=== PATIENT | male | born 1955 | race Caucasian/White ===

== ENCOUNTER 2021-07-08 07:48 | Observation (INO) ==
--- NOTE | 2021-07-02 12:57 | Anesthesiology Consultation ---
Date of Service July 02, 2021 History Surgery Operation Date: 07/08/21 09:45 Proposed Procedures p Colonoscopy Dr. Eagle Guillermo MD Height/Weight Height: 6 ft 6 in Weight: 163.293 kg Allergies Allergy/AdvReac Type Severity Reaction Status Date / Time mometasone furoate Allergy Unknown NOSE Verified 07/01/21 15:44 IRRITATION,"SCABBED UP" oxycodone AdvReac Severe violently Verified 07/01/21 15:44 "sick" Medications Home Medications Medication Instructions Recorded Confirmed Last Taken ascorbic acid (vitamin C) 500 mg 500 mg PO QPM 10/22/19 07/01/21 09/15/20 20:00 tablet aspirin 81 mg tablet,delayed 81 mg PO Q2D 10/22/19 07/01/21 09/15/20 05:00 release atorvastatin 20 mg tablet 10 mg PO 3XWK 10/22/19 07/01/21 09/14/20 05:00 carisoprodol 350 mg tablet (Soma) 350 mg PO QID PRN 10/22/19 07/01/21 2 Weeks Ago ~09/02/20 diazepam 2 mg tablet 2 mg PO DAILY PRN 10/22/19 07/01/21 2 Weeks Ago ~09/02/20 fexofenadine 180 mg tablet 180 mg PO DAILY PRN 10/22/19 07/01/21 2 Weeks Ago ~09/02/20 fluticasone propionate 50 1 spray INTRANASAL DAILY PRN 10/22/19 07/01/21 Unknown mcg/actuation nasal spray,suspension (Flonase Allergy Relief) hydrochlorothiazide 25 mg tablet 25 mg PO QAM 10/22/19 07/01/21 09/15/20 05:00 omeprazole magnesium 20 mg 20 mg PO QPM 10/22/19 07/01/21 09/15/20 20:00 tablet,delayed release (Prilosec OTC) amlodipine 5 mg tablet 5 mg PO QAM 10/24/19 07/01/21 09/16/20 04:30 furosemide 20 mg tablet 20 mg PO 2XWK PRN 09/07/20 07/01/21 09/10/20 losartan 100 mg tablet 100 mg PO QAM 09/07/20 07/01/21 09/15/20 05:00 hydrocodone 5 mg-acetaminophen 325 1 - 2 tab PO Q6H PRN #24 tab MDD 8 09/16/20 07/01/21 Unknown mg tablet tabs tamsulosin 0.4 mg capsule (Flomax) 0.4 mg PO QAM 07/01/21 07/01/21 Unknown Past Medical History Medical History Chronic back pain Chronic neck pain Claustrophobia Coagulation factor disorder Had [facility] heme workup 11/08/19 for elevated PT/PTT prior to shoulder arthroscopy. Labs were repeated, as well as lupus anticoagulant. All were elevated, and [facility] recommended FFP prior to surgery. Patient received 2 units. Received recommendations from [facility] (Dr. Land) advising 2 units FFP prior to knee surgery on 09/16. Dr Brothers to order. Degenerative disc disease Diastolic dysfunction With prior episodes of acute diastolic heart failure/volume overload occurring in the setting of uncontrolled hypertension as well as high-dose gabapentin and amlodipine therapies. Appears well compensated at PAT 09/09/20 Dyspnea with exertion (started Jul 2020) -- following with [facility] cardiology. Negative DSE 08/2020. GERD (gastroesophageal reflux disease) History of cervical fracture ~1999 with hairline fracture at ~C3. no surgery at that time. Full ROM History of kidney stones [place] (hard of hearing) Hyperlipidemia Hypertension Leg edema monitoring with cardiology Osteoarthritis Past Family History Family History Other No family history of adverse response to anesthesia Past Surgical History Surgical History H/O arthroscopy of shoulder Right History of arthroscopy of right knee History of cardiac cath APPROX 10 YEARS AGO FOR CHEST PAIN WITH STRONG FHX OF CAD - [facility] - NO STENTS History of colonoscopy History of cystoscopy W/ STONE EXTRACTION History of lumbar discectomy History of tonsillectomy Nausea and vomiting after administration of anesthetic agent S/P epidural steroid injection Lumbar and cervical Social History Smoking Status: Former smoker tobacco type: cigarettes and smokeless tobacco Do You Dip or Chew Tobacco: No (quit in 1999) Smoking End Date: 30 + years ago Hx Alcohol Use: Yes Alcohol type: beer and hard liquor alcohol intake frequency: a few times a month Hx Substance Use: No substance use type: does not use
[~2021-07-08 07:48] MED LIST: SODIUM CHLORIDE 0.9% 250 ML IV PRN
--- NOTE | 2021-07-08 08:42 | History & Physical Report ---
Date of Service July 08, 2021 History of Present Illness Chief Complaint: Screening Primary Care Provider: Diamante Parisi, DO 66 yo male with a history of presumed lupus anticoagulant who requires ffp prior to procedure. Presenting today for a colonoscopy for screening. No reports of family history of colon cancer. Last colonoscopy in 2009. Otherwise without any other complaints. Allergies Allergy/AdvReac Type Severity Reaction Status Date / Time mometasone furoate Allergy Unknown NOSE Verified 07/08/21 08:00 IRRITATION,"SCABBED UP" oxycodone AdvReac Severe violently Verified 07/08/21 08:00 "sick" Home Medications Medication Instructions Recorded Confirmed Type ascorbic acid (vitamin C) 500 mg 500 mg PO QPM 10/22/19 07/08/21 History tablet aspirin 81 mg tablet,delayed 81 mg PO Q2D 10/22/19 07/08/21 History release atorvastatin 20 mg tablet 10 mg PO 3XWK 10/22/19 07/08/21 History carisoprodol 350 mg tablet (Soma) 350 mg PO QID PRN 10/22/19 07/08/21 History diazepam 2 mg tablet 2 mg PO DAILY PRN 10/22/19 07/01/21 History fexofenadine 180 mg tablet 180 mg PO DAILY PRN 10/22/19 07/08/21 History fluticasone propionate 50 1 spray INTRANASAL DAILY PRN 10/22/19 07/08/21 History mcg/actuation nasal spray,suspension (Flonase Allergy Relief) hydrochlorothiazide 25 mg tablet 25 mg PO QAM 10/22/19 07/08/21 History omeprazole magnesium 20 mg 20 mg PO QPM 10/22/19 07/08/21 History tablet,delayed release (Prilosec OTC) amlodipine 5 mg tablet 5 mg PO QAM 10/24/19 07/08/21 History furosemide 20 mg tablet 20 mg PO 2XWK PRN 09/07/20 07/08/21 History losartan 100 mg tablet 100 mg PO QAM 09/07/20 07/08/21 History hydrocodone 5 mg-acetaminophen 325 1 - 2 tab PO Q6H PRN #24 tab MDD 8 09/16/20 07/08/21 Rx mg tablet tabs tamsulosin 0.4 mg capsule (Flomax) 0.4 mg PO QAM 07/01/21 07/08/21 History prednisone 20 mg tablet 20 mg PO DAILY 07/08/21 07/08/21 History Past Med/Surg History Medical History Chronic back pain Chronic neck pain Claustrophobia Coagulation factor disorder Had [facility] heme workup 11/08/19 for elevated PT/PTT prior to shoulder arthroscopy. Labs were repeated, as well as lupus anticoagulant. All were elevated, and [facility] recommended FFP prior to surgery. Patient received 2 units. Received recommendations from [facility] (Dr. Land) advising 2 units FFP prior to knee surgery on 09/16. Dr Brothers to order. Degenerative disc disease Diastolic dysfunction With prior episodes of acute diastolic heart failure/volume overload occurring in the setting of uncontrolled hypertension as well as high-dose gabapentin and amlodipine therapies. Appears well compensated at PAT 09/09/20 Dyspnea with exertion (started Jul 2020) -- following with [facility] cardiology. N egative DSE 08/2020. GERD (gastroesophageal reflux disease) History of cervical fracture ~1999 with hairline fracture at ~C3. no surgery at that time. Full ROM History of kidney stones [place] (hard of hearing) Hyperlipidemia Hypertension Leg edema monitoring with cardiology Osteoarthritis Surgical History H/O arthroscopy of shoulder Right History of arthroscopy of right knee History of cardiac cath APPROX 10 YEARS AGO FOR CHEST PAIN WITH STRONG [facility]X [facility] History of colonoscopy History of cystoscopy W/ STONE EXTRACTION History of lumbar discectomy History of tonsillectomy Nausea and vomiting after administration of anesthetic agent S/P epidural steroid injection Lumbar and cervical Family History Other No family history of adverse response to anesthesia Social History Smoking Status: Former smoker Smoking End Date: 30 + years ago; Second Hand Exposure: Yes (as a child); Do You Dip or Chew Tobacco: No (quit in 1999); Tobacco Cessation Education Requested by Patient: No Hx Alcohol Use: Yes Alcohol type: beer and hard liquor Hx Substance Use: No Preferred Language: Libyan Communication Ability: Effective Pricing Director Required: No Beliefs That Will Affect Care: None Current Living Situation: Spouse Feels Safe at Home: Yes Safety Concerns: Feels Safe At This Time Assistive Devices: None Review of Systems All systems reviewed & are unremarkable except as noted in Subjective Physical Exam Physical Exam: Obese white male in nad Eyes: PERRL, conjunctivae normal, anicteric sclerae Gastrointestinal (Abdomen): Obese soft Results & Data ([facility]) Vital Signs (Past 12 Hours) Vital Signs Temp Pulse Resp BP Pulse Ox 07/08/21 08:07 36.5 C 87 16 162/93 H 94 Supervising Physician Co-Signing Physician Notes Colonoscopy for screening after 2 units of ffp given history of anticoagulant disorder.
[2021-07-08] MEDS ORDERED: SODIUM CHLORIDE 0.9% 250 ML IV PRN (08:45)
[2021-07-08 11:27] LABS: INR 1.3 (0.9-1.1); Partial Thromboplastin Ratio 1.3; Partial Thromboplastin Time 33.9 Seconds (21.0-31.0); Prothrombin Time 13.1 Seconds (9.0-12.0)
--- NOTE | 2021-07-08 11:50 | GI REPORT ---
Patient Name: Brennon Rankin Procedure Date: 07/08/2021 11:16 AM Date of : 1955 Admit Type: Outpatient Age: 66 Gender: Male Attending MD: Aspen Guillermo M.d. Procedure: Colonoscopy Providers: Aspen Guillermo M.d. Referring MD: Diamante Parisi Indications: Screening for colorectal malignant neoplasm Medicines: 2 units of ffp pre-operatively Complications: No immediate complications. Estimated Blood Loss: Estimated blood loss: none. Procedure: Pre-Anesthesia Assessment: - Patient identification and proposed procedure were verified prior to the procedure by the physician, the nurse and the anesthesiologist. The procedure was verified in the pre-procedure area. - Prior to the procedure, a History and Physical was performed, and patient medications, allergies and sensitivities were reviewed. The patient's tolerance of previous anesthesia was reviewed. - ASA Grade Assessment: III - A patient with severe systemic disease. After I obtained informed consent, the scope was passed under direct vision. Throughout the procedure, the patient's blood pressure, pulse, and oxygen saturations were monitored continuously. The Colonoscope was introduced through the anus and advanced to the cecum, identified by appendiceal orifice and ileocecal valve. The colonoscopy was performed without difficulty. The patient tolerated the procedure - he coughed during a good portion of the procedure. Findings: The examined colon appeared normal. Internal hemorrhoids were found during retroflexion. Impression: - The examined colon appeared normal. - Internal hemorrhoids. Recommendation: - Repeat colonoscopy in 5 years for screening purposes - consider a 2 day prep prior to next colonoscopy. Ian Felix M.d. 07/08/2021 11:49:41 AM This report has been signed electronically. Note Initiated On: 07/08/2021 11:16 AM Number of Addenda: 0 I attest to the content of the Intraoperative Record and orders documented therein, exceptions below {[id number]}
[2021-07-08] MEDS ORDERED: LIDOCAINE 2% 2 ML VIAL/AMP(20MG/ML) INFIL ONE (11:59)
[2021-07-08] MEDS ORDERED: PROPOFOL IV EMULSION 10 MG/ML 20 ML VIAL IV ONE (11:59)
--- NOTE | 2021-07-08 13:09 | Hospitalist Consultation ---
Date of Consultation July 08, 2021 History of Present Illness Reason for Consultation: Syncopal episode Requesting Physician: Dr. Nakia Neff Attending Physician: Aspen Guillermo MD History of Present Illness This is a 66 yo M with PMHx of Hypertension, hyperlipidemia, chronic diastolic dysfunction, suspect lupus/coagulation factor disorder, degenerative disc disease, C3 hairline fracture, and recently on prednisone burst for bronchitis x5 days. He presented today for routine colonoscopy by Dr. Guillermo. He received propofol and lidocaine for anesthesia and tolerated the procedure well. After procedure patient developed tunnel vision, weakness, and felt as if he was going to pass out. This occurred 3 times post procedurally, with a eye deviation to the left per anesthesia. He does report chronic neck pain and issues with moving neck in flexion and to the right due to history of C3 fracture. Reports his neck was incredibly stiff after procedure due to position of pillow. He denies any history of seizure. He admits to having PVCs however reports this is chronic and well-known. During all 3 of these events vital signs remained stable. Blood glucose was 89 on recheck and he has since been able to drink without any difficulty. Patient has been gotten up to ambulate to and from the bathroom without any difficulty in post endoscopy suite. He reports complete resolvent of his symptoms at this point in time, his is sitting at bedside. Allergies Allergy/AdvReac Type Severity Reaction Status Date / Time mometasone furoate Allergy Unknown NOSE Verified 07/08/21 08:00 IRRITATION,"SCABBED UP" oxycodone AdvReac Severe violently Verified 07/08/21 08:00 "sick" Home Medications Medication Instructions Recorded Confirmed Type ascorbic acid (vitamin C) 500 mg 500 mg PO QPM 10/22/19 07/08/21 History tablet aspirin 81 mg tablet,delayed 81 mg PO Q2D 10/22/19 07/08/21 History release atorvastatin 20 mg tablet 10 mg PO 3XWK 10/22/19 07/08/21 History carisoprodol 350 mg tablet (Soma) 350 mg PO QID PRN 10/22/19 07/08/21 History diazepam 2 mg tablet 2 mg PO DAILY PRN 10/22/19 07/01/21 History fexofenadine 180 mg tablet 180 mg PO DAILY PRN 10/22/19 07/08/21 History fluticasone propionate 50 1 spray INTRANASAL DAILY PRN 10/22/19 07/08/21 History mcg/actuation nasal spray,suspension (Flonase Allergy Relief) hydrochlorothiazide 25 mg tablet 25 mg PO QAM 10/22/19 07/08/21 History omeprazole magnesium 20 mg 20 mg PO QPM 10/22/19 07/08/21 History tablet,delayed release (Prilosec OTC) amlodipine 5 mg tablet 5 mg PO QAM 10/24/19 07/08/21 History furosemide 20 mg tablet 20 mg PO 2XWK PRN 09/07/20 07/08/21 History losartan 100 mg tablet 100 mg PO QAM 09/07/20 07/08/21 History hydrocodone 5 mg-acetaminophen 325 1 - 2 tab PO Q6H PRN #24 tab MDD 8 09/16/20 07/08/21 Rx mg tablet tabs tamsulosin 0.4 mg capsule (Flomax) 0.4 mg PO QAM 07/01/21 07/08/21 History prednisone 20 mg tablet 20 mg PO DAILY 07/08/21 07/08/21 History Patient History Medical History (Updated 07/08/21 @ 13:59 by Yelena Borrero PA-C) Chronic back pain Chronic neck pain Claustrophobia Coagulation factor disorder Had [facility] heme workup 11/08/19 for elevated PT/PTT prior to shoulder arthroscopy. Labs were repeated, as well as lupus anticoagulant. All were elevated, and [facility] recommended FFP prior to surgery. Patient received 2 units. Received recommendations from [facility] (Dr. Land) advising 2 units FFP prior to knee surgery on 09/16. Dr Brothers to order. Degenerative disc disease Diastolic dysfunction With prior episodes of acute diastolic heart failure/volume overload occurring in the setting of uncontrolled hypertension as well as high-dose gabapentin and amlodipine therapies. Appears well compensated at PAT 09/09/20 Dyspnea with exertion (started Jul 2020) -- following with [facility] cardiology. Negative DSE 08/2020. GERD (gastroesophageal reflux disease) History of cervical fracture ~1999 with hairline fracture at ~C3. no surgery at that time. Full ROM History of kidney stones [place] (hard of hearing) Hyperlipidemia Hypertension Leg edema monitoring with cardiology Osteoarthritis Surgical History H/O arthroscopy of shoulder Right History of arthroscopy of right knee History of cardiac cath APPROX 10 YEARS AGO FOR CHEST PAIN WITH STRONG FHX OF CAD - [facility] - NO STENTS History of colonoscopy History of cystoscopy W/ STONE EXTRACTION History of lumbar discectomy History of tonsillectomy Nausea and vomiting after administration of anesthetic agent S/P epidural steroid injection Lumbar and cervical Family History Other No family history of adverse response to anesthesia Social History Smoking Status: Former smoker Smoking End Date: 30 + years ago; Second Hand Exposure: Yes (as a child); Do You Dip or Chew Tobacco: No (quit in 1999); Tobacco Cessation Education Requested by Patient: No Hx Alcohol Use: Yes Alcohol type: beer and hard liquor Hx Substance Use: No Preferred Language: Kittitian Communication Ability: Effective Bakery Sales Clerk Required: No Beliefs That Will Affect Care: None Current Living Situation: Spouse Feels Safe at Home: Yes Safety Concerns: Feels Safe At This Time Assistive Devices: None Results & Data Results & Data ([facility]) Vital Signs (Past 12 Hours) Vital Signs Temp Pulse Pulse Resp BP BP Pulse Ox 07/08/21 12:37 67 16 140/70 98 07/08/21 12:22 68 16 157/79 H 97 07/08/21 12:07 36.6 C 79 16 140/76 97 07/08/21 11:52 80 16 130/77 97 07/08/21 10:53 36.7 C 65 16 162/65 H 95 07/08/21 10:23 36.6 C 79 16 147/82 H 95 07/08/21 10:22 36.7 C 82 16 131/63 95 07/08/21 10:08 36.7 C 75 16 147/66 H 95 07/08/21 10:02 36.5 C 72 16 143/71 H 95 07/08/21 09:58 36.6 C 73 16 123/71 96 07/08/21 09:53 36.7 C 75 16 143/86 H 95 07/08/21 09:35 36.6 C 78 16 148/101 H 95 07/08/21 09:18 36.6 C 78 16 148/101 H 07/08/21 09:15 36.6 C 70 16 129/61 94 07/08/21 09:05 36.5 C 71 16 134/72 94 07/08/21 09:00 36.5 C 73 16 147/70 H 94 07/08/21 08:55 36.6 C 71 16 152/94 H 94 07/08/21 08:48 36.6 C 68 140/110 H 93 07/08/21 08:07 36.5 C 87 16 162/93 H 94
--- NOTE | 2021-07-08 13:31 | History & Physical Report ---
Date of Service July 08, 2021 Assessment & Plan (1) Syncope: Plan: -Admit to med surg with telemetry for observation -Check head CT, neck CT to evaluate for syncopal episode x3 - -Follow on cardiac monitoring, follows with cardiology as an outpatient, Aiden Nicolas PA-C -EKG now -Check 2D echo stat, last was completed in August 2020 and had normal LVEF, no valvular abnormalities, no wall motion abnormalities -Check CBC, CMP, troponin, mag, Krebs now -Add on lipid and A1c panel -Allow diet cardiac (2) Hypertension: Plan: -Continue oral antihypertensives, blood pressure remained stable 3 syncopal episodes -We will check orthostatics x1 (3) Coagulation factor disorder: Plan: --Follows with Dr. Cho with hematology as outpatient, received 2 units FFP prior to colonoscopy today (4) Abnormal coagulation profile: Plan: -INR evaluated at 1.3 today, follow with a.m. labs -As above (5) GERD (gastroesophageal reflux disease): Plan: -Continue medications - teds, scds CODE: Full code Dispo: From home, with for observation, likely to remain in hospital overnight be able to be discharged home pending normal imaging, lab work, EKG and echocardiogram. History of Present Illness Chief Complaint: Syncope Primary Care Provider: Diamante Parisi, This is a 66 yo M with PMHx of Hypertension, hyperlipidemia, chronic diastolic dysfunction, suspect lupus/coagulation factor disorder, degenerative disc disease, C3 hairline fracture, and recently on prednisone burst for bronchitis x5 days. He presented today for routine colonoscopy by Dr. Guillermo. He received propofol and lidocaine for anesthesia and tolerated the procedure well. After procedure patient developed tunnel vision, weakness, and felt as if he was going to pass out. This occurred 3 times post procedurally, with a eye deviation to the left per anesthesia on each occasion. He does report chronic neck pain and issues with moving neck in flexion and to the right due to history of C3 fracture. Reports his neck was incredibly stiff after procedure due to position of pillow. He denies any history of seizure. Also denies previous adverse effects with anesthesia. He admits to having PVCs however reports this is chronic and well-known. During all 3 of these events vital signs remained stable. Blood glucose was 89 on recheck and he has since been able to drink without any difficulty. Patient has been gotten up to ambulate to and from the bathroom without any difficulty in post endoscopy suite. He reports complete resolvent of his symptoms at this point in time, his is sitting at bedside. He is agreeable to hospital stay overnight for observation after discussion of risks/benefits. agrees. Allergies Allergy/AdvReac Type Severity Reaction Status Date / Time mometasone furoate Allergy Unknown NOSE Verified 07/08/21 08:00 IRRITATION,"SCABBED UP" oxycodone AdvReac Severe violently Verified 07/08/21 08:00 "sick" Home Medications Medication Instructions Recorded Confirmed Type ascorbic acid (vitamin C) 500 mg 500 mg PO QPM 10/22/19 07/08/21 History tablet aspirin 81 mg tablet,delayed 81 mg PO Q2D 10/22/19 07/08/21 History release atorvastatin 20 mg tablet 10 mg PO 3XWK 10/22/19 07/08/21 History carisoprodol 350 mg tablet (Soma) 350 mg PO QID PRN 10/22/19 07/08/21 History diazepam 2 mg tablet 2 mg PO DAILY PRN 10/22/19 07/01/21 History fexofenadine 180 mg tablet 180 mg PO DAILY PRN 10/22/19 07/08/21 History fluticasone propionate 50 1 spray INTRANASAL DAILY PRN 10/22/19 07/08/21 History mcg/actuation nasal spray,suspension (Flonase Allergy Relief) hydrochlorothiazide 25 mg tablet 25 mg PO QAM 10/22/19 07/08/21 History omeprazole magnesium 20 mg 20 mg PO QPM 10/22/19 07/08/21 History tablet,delayed release (Prilosec OTC) amlodipine 5 mg tablet 5 mg PO QAM 10/24/19 07/08/21 History furosemide 20 mg tablet 20 mg PO 2XWK PRN 09/07/20 07/08/21 History losartan 100 mg tablet 100 mg PO QAM 09/07/20 07/08/21 History hydrocodone 5 mg-acetaminophen 325 1 - 2 tab PO Q6H PRN #24 tab MDD 8 09/16/20 07/08/21 Rx mg tablet tabs tamsulosin 0.4 mg capsule (Flomax) 0.4 mg PO QAM 07/01/21 07/08/21 History prednisone 20 mg tablet 20 mg PO DAILY 07/08/21 07/08/21 History Past Med/Surg History Medical History (Updated 07/08/21 @ 13:59 by Yelena Borrero PA-C) Chronic back pain Chronic neck pain Claustrophobia Coagulation factor disorder Had [facility] heme workup 11/08/19 for elevated PT/PTT prior to shoulder arthroscopy. Labs were repeated, as well as lupus anticoagulant. All were elevated, and [facility] recommended FFP prior to surgery. Patient received 2 units. Received recommendations from [facility] (Dr. Land) advising 2 units FFP prior to knee surgery on 09/16. Dr Brothers to order. Degenerative disc disease Diastolic dysfunction With prior episodes of acute diastolic heart failure/volume overload occurring in the setting of uncontrolled hypertension as well as high-dose gabapentin and amlodipine therapies. Appears well compensated at PAT 09/09/20 Dyspnea with exertion (started Jul 2020) -- following with [facility] cardiology. Negative DSE 08/2020. GERD (gastroesophageal reflux disease) History of cervical fracture ~2000 with hairline fracture at ~C3. no surgery at that time. Full ROM History of kidney stones [place] (hard of hearing) Hyperlipidemia Hypertension Leg edema monitoring with cardiology Osteoarthritis Surgical History H/O arthroscopy of shoulder Right History of arthroscopy of right knee History of cardiac cath APPROX 10 YEARS AGO FOR CHEST PAIN WITH STRONG FHX OF CAD - [facility] - NO STENTS History of colonoscopy History of cystoscopy W/ STONE EXTRACTION History of lumbar discectomy History of tonsillectomy Nausea and vomiting after administration of anesthetic agent S/P epidural steroid injection Lumbar and cervical Family History Other No family history of adverse response to anesthesia Social History Smoking Status: Never smoker Second Hand Exposure: No; Hx Alcohol Use: Yes Alcohol type: beer Hx Substance Use: No Preferred Language: Andorran Communication Ability: Effective Aviation Medicine Specialist Required: No Beliefs That Will Affect Care: None Current Living Situation: Spouse Feels Safe at Home: Yes Assistive Devices: None Review of Systems Review of Systems: Constitutional: No fever, sweats or chills Eyes: No diplopia, no worsening or blurred vision ENT: normal hearing, no trouble swallowing Respiratory: No cough, sputum, dyspnea at rest or on exertion Cardiovascular: No chest pain, tightness or palpitations Abdomen: No pain, nausea, vomiting, diarrhea or constipation Musculoskeletal: No joint pain, calf pain, swelling Neurologic: No weakness, numbness/tingling, or balance problems Psychiatric: No anxiety or depression Skin: No rash or itch Physical Exam Physical Exam: General: awake, alert, no apparent distress, obese with BMI of 42.1 Head: Normocephalic, atraumatic ENT: PERRL, EOMI, no pharyngeal exudate, mucous membranes moist Chest: Clear to auscultation, on room air, no adventitious breath sounds Cardiac: Regular rate and rhythm, no murmur, no JVD, normal peripheral pulses, good capillary refill Abdominal: NABS x 4 quadrants, soft, nondistended, nontender to palpation, no rebound or guarding Extremities: Normal inspection, no peripheral edema or erythema, calfs nontender to palpation Psych: Normal mood and affect Neuro: AAO x 3, strength intact bilaterally and rated 5/5, no motor deficits, speech is clear, no peripheral sensory deficits Results & Data Results & Data ([facility]) Vital Signs (Past 12 Hours) Vital Signs Temp Pulse Pulse Resp BP BP Pulse Ox 07/08/21 12:37 67 16 140/70 98 07/08/21 12:22 68 16 157/79 H 97 07/08/21 12:07 36.6 C 79 16 140/76 97 07/08/21 11:52 80 16 130/77 97 07/08/21 10:53 36.7 C 65 16 162/65 H 95 07/08/21 10:23 36.6 C 79 16 147/82 H 95 07/08/21 10:22 36.7 C 82 16 131/63 95 07/08/21 10:08 36.7 C 75 16 147/66 H 95 07/08/21 10:02 36.5 C 72 16 143/71 H 95 07/08/21 09:58 36.6 C 73 16 123/71 96 07/08/21 09:53 36.7 C 75 16 143/86 H 95 07/08/21 09:35 36.6 C 78 16 148/101 H 95 07/08/21 09:18 36.6 C 78 16 148/101 H 07/08/21 09:15 36.6 C 70 16 129/61 94 07/08/21 09:05 36.5 C 71 16 134/72 94 07/08/21 09:00 36.5 C 73 16 147/70 H 94 07/08/21 08:55 36.6 C 71 16 152/94 H 94 07/08/21 08:48 36.6 C 68 140/110 H 93 07/08/21 08:07 36.5 C 87 16 162/93 H 94 Code Status & VTE Plan Code Status Full code Supervising Physician Co-Signing Physician Notes Pt was seen and examined. Agreed with Yelena COX exam, assessment and plan. 66 yo M with PMHx of Hypertension, hyperlipidemia, chronic diastolic dysfunction, suspect lupus/coagulation factor disorder, degenerative disc disease, C3 hairline fracture, and recently on prednisone for bronchitis x5 days, s/p routine colonoscopy by Dr. Guillermo was asked to admitted due to syncopal episodes possible due to propofol and lidocaine for anesthesia during the procedure. Staff noted that patient had 3 syncopal episodes. He does report chronic neck pain and issues with moving neck in flexion and to the right due to history of C3 fracture. Currently sitting in chair with no distress. Will get an CT head and cervical. will get an echo. Continue neuro check. Will monitor closely. MD Harmony
--- NOTE | 2021-07-08 13:33 | Anesthesiology Progress Note ---
Date of Service July 08, 2021 Anesthesia Post Procedure Vital Signs Vital Signs: Temp Pulse Pulse Resp BP BP Pulse Ox 07/08/21 12:37 67 16 140/70 98 07/08/21 12:22 68 16 157/79 H 97 07/08/21 12:07 36.6 C 79 16 140/76 97 07/08/21 11:52 80 16 130/77 97 07/08/21 10:53 36.7 C 65 16 162/65 H 95 07/08/21 10:23 36.6 C 79 16 147/82 H 95 07/08/21 10:22 36.7 C 82 16 131/63 95 07/08/21 10:08 36.7 C 75 16 147/66 H 95 07/08/21 10:02 36.5 C 72 16 143/71 H 95 07/08/21 09:58 36.6 C 73 16 123/71 96 07/08/21 09:53 36.7 C 75 16 143/86 H 95 07/08/21 09:35 36.6 C 78 16 148/101 H 95 07/08/21 09:18 36.6 C 78 16 148/101 H 07/08/21 09:15 36.6 C 70 16 129/61 94 07/08/21 09:05 36.5 C 71 16 134/72 94 07/08/21 09:00 36.5 C 73 16 147/70 H 94 07/08/21 08:55 36.6 C 71 16 152/94 H 94 07/08/21 08:48 36.6 C 68 140/110 H 93 07/08/21 08:07 36.5 C 87 16 162/93 H 94 Transfer of Care Handoff Completed per policy Notes Mental Status: alert / awake / arousable and participated in evaluation Patient Amnestic to Procedure: Yes Nausea / Vomiting: adequately controlled Pain: adequately controlled Airway Patency, RR, SpO2: stable & adequate BP & HR: stable & adequate Hydration State: stable & adequate Anesthetic Complications: no major complications apparent and Pt Satisfied with anesthetic care
--- NOTE | 2021-07-08 13:41 | Anesthesiology Progress Note ---
Date of Service July 08, 2021 Anesthesia Post Procedure Vital Signs Vital Signs: Temp Pulse Pulse Resp BP BP Pulse Ox 07/08/21 12:37 67 16 140/70 98 07/08/21 12:22 68 16 157/79 H 97 07/08/21 12:07 36.6 C 79 16 140/76 97 07/08/21 11:52 80 16 130/77 97 07/08/21 10:53 36.7 C 65 16 162/65 H 95 07/08/21 10:23 36.6 C 79 16 147/82 H 95 07/08/21 10:22 36.7 C 82 16 131/63 95 07/08/21 10:08 36.7 C 75 16 147/66 H 95 07/08/21 10:02 36.5 C 72 16 143/71 H 95 07/08/21 09:58 36.6 C 73 16 123/71 96 07/08/21 09:53 36.7 C 75 16 143/86 H 95 07/08/21 09:35 36.6 C 78 16 148/101 H 95 07/08/21 09:18 36.6 C 78 16 148/101 H 07/08/21 09:15 36.6 C 70 16 129/61 94 07/08/21 09:05 36.5 C 71 16 134/72 94 07/08/21 09:00 36.5 C 73 16 147/70 H 94 07/08/21 08:55 36.6 C 71 16 152/94 H 94 07/08/21 08:48 36.6 C 68 140/110 H 93 07/08/21 08:07 36.5 C 87 16 162/93 H 94 Transfer of Care Handoff Completed per policy Notes Mental Status: alert / awake / arousable and participated in evaluation Patient Amnestic to Procedure: Yes Nausea / Vomiting: adequately controlled Pain: adequately controlled Airway Patency, RR, SpO2: stable & adequate BP & HR: stable & adequate Hydration State: stable & adequate Anesthetic Complications: see Notes below and Pt Satisfied with anesthetic care Notes: The patient is a 66 year old male with a history of hypertension, dyslipidemia, coagulation factor disorder, GERD and claustrophobia who underwent a colonoscopy with Dr. Guillermo today. The patient did receive two units of FFP today per his hematologists recommendation prior to the procedure. The patient did complain of a dry cough that he has had for several weeks now and for which he is taking prednisone. He stated he was told his cough was likely due to an allergic bronchitis. He denied any other symptoms. The patient did well during the procedure. He received 250mg IV propofol and 40mg IV lidocaine. Shortly after arriving in recovery, I was called to the bedside by the nurse because the patient was "passing out." When I arrived to recovery area, the patient was just started to regain consciousness. He was alert and appropriate and his vital signs were stable. He did not exhibit any hypotension or bradycardia. He stated he felt like his vision was blurry and like he was falling down a dark tunnel prior to passing out. The patient denied chest pain or shortness of breath. Neurologically, he was grossly intact. His blood sugar was 89. The patient had two more episodes in recovery in which he suddenly seemed to lose consciousness. Prior to losing consciousness the patient would state that he was starting to feel weird and foggy again and getting tunnel vision. The patient would then seem to stare off into the distance and go limp. His eyes would deviate to the left. Each episode only lasted several seconds and then the patient would regain consciousness. The patient was mentating appropriately between episodes and vitals remained stable. He did not lose bowel or bladder control during these episodes. The internal medicine service was consulted. [facility] to the bedside to evaluate the patient. She and Dr. Bay discussed the patient and recommended a [address] scan of the head and neck to look for any acute neurological changes. The patient and his were agreeable.
--- NOTE | 2021-07-08 14:01 | Communication Note ---
Date of Service: July 08, 2021 Informed by recovery nurse that patient had some changes in the recovery area- evaluated by hospitalist, anesthesia team. decision was to admit for 24 hour obs.
--- NOTE | 2021-07-08 16:03 | CT Scan Report ---
HEAD CT NONCONTRAST CT DOSE: 1035.81 mGycm HISTORY: left eye deviation, syncopal episode TECHNIQUE: Multiaxial CT images of the head were performed without the use of intravenous contrast. A utomated exposure control was utilized for this study. A dose lowering technique was utilized adheri ng to the principles of ALARA. Comparison: Head CT 02/16/2010. Findings: The paranasal sinuses and mastoid air cells are clear. The calvarium and skull base are int act. The ventricles and sulci are within normal limits. There is no mass, hematoma, midline shift, or acute infarct. Incidental note is made of a punctate metallic density within the left temporal subcu taneous soft tissues. Impression: No acute intracranial abnormality. ACT 112: Negative or not required by law. Electronically signed by: Ehsan Lowry M.D. 07/08/2021 4:02 PM
[2021-07-08] MEDS ORDERED: FLUTICASONE PROPIONATE NA SPR 16 GM BTL PRN (16:21)
[2021-07-08] MEDS ORDERED: FEXOFENADINE HCL 180 MG TAB PO PRN (16:21)
[2021-07-08] MEDS ORDERED: CARISOPRODOL 350 MG TABLET PO PRN (16:21)
[2021-07-08] MEDS ORDERED: ACETAMINOPHEN 325 MG TAB PO PRN (16:21)
[2021-07-08] MEDS ORDERED: FUROSEMIDE 20 MG TAB PO PRN (16:21)
[2021-07-08] MEDS ORDERED: HYDROCODONE/ACETAMOPHEN 5/325MG TAB PO PRN (16:21)
[2021-07-08] MEDS ORDERED: ONDANSETRON INJ 2 MG/ML 2 ML VIAL IV PRN (16:21)
[2021-07-08] MEDS ORDERED: diazePAM 2 MG TABLET PO PRN (16:21)
[2021-07-08 17:07] LABS: Hematocrit (blood only) 40.4 % (42-52); Hemoglobin 13.4 g/dL (14.0-18.0); Mean Corpuscular Hemoglobin 29.4 pg (25-34); Mean Corpuscular Volume 88.6 fL (80-100); Mean Platelet Volume 10.1 fL (7.4-10.4); Platelet Count 267 K/uL (130-400); RDW Coefficient of Variation 13.7 % (11.5-14.5); RDW Standard Deviation 44.5 fL (36.4-46.3); Red Blood Count 4.56 M/uL (4.7-6.1); White Blood Count 9.42 K/uL (4.8-10.8)
[2021-07-08 17:08] LABS: Mean Corpuscular Hgb Conc 33.2 g/dL (32-36)
[2021-07-08 17:26] LABS: Albumin Level 3.6 gm/dl (3.4-5.0); BUN Creatinine Ratio 19.6 (10-20); Calcium 8.8 mg/dl (8.5-10.1); Creatinine Clr Calc Pharmacy 98.2 ml/min; Est GFR (African American) 66.8 ml/min; Est GFR (Non-African American) 57.7 ml/min; Magnesium 2.5 mg/dl (1.8-2.4); Potassium 3.6 mmol/L (3.5-5.1)
[2021-07-08 17:29] LABS: Albumin Globulin Ratio 0.8 (0.9-2); Bilirubin,Total 0.5 mg/dl (0.2-1); Globulin 4.3 gm/dl (2.5-4.0); Phosphorus 4.3 mg/dl (2.5-4.9); Total Protein 7.9 gm/dl (6.4-8.2)
--- NOTE | 2021-07-08 17:54 | CT Scan Report ---
CERVICAL SPINE CT CT DOSE: 492.75 mGy.cm HISTORY: Neck pain. C3 fracture TECHNIQUE: Multiaxial CT images of the cervical spine were performed and reformatted in the sagittal and coronal plane without the use of contrast. A dose lowering technique was utilized adhering to th e principles of ALARA. COMPARISON: None. FINDINGS: No fractures. No subluxation. Prevertebral soft tissues and the C1-C2 interval are intact. No pneumothorax. The CT C3 vertebral bodies and facets are fused. There is mild to moderate degenerat yadira disc disease throughout the cervical spine. IMPRESSION: No fractures within the cervical spine. ACT 112: Negative or not required by law. Electronically signed by: Ehsan Lowry M.D. 07/08/2021 5:52 PM
[2021-07-08] MEDS ORDERED: COUGH DROP (SUGAR FREE) LOZ 24 LOZ/1 BOX BUCCAL STA (20:44)
[2021-07-08] MEDS ORDERED: PANTOprazole 40 MG TAB PO SCH (21:00)
[2021-07-08] MEDS ORDERED: ASCORBIC ACID 500 MG TAB PO SCH (21:00)
[2021-07-09 06:40] LABS: Hematocrit (blood only) 40.9 % (42-52); Hemoglobin 13.7 g/dL (14.0-18.0); Mean Corpuscular Hemoglobin 29.8 pg (25-34); Mean Corpuscular Hgb Conc 33.5 g/dL (32-36); Mean Corpuscular Volume 88.9 fL (80-100); Mean Platelet Volume 10.2 fL (7.4-10.4); Platelet Count 227 K/uL (130-400); RDW Coefficient of Variation 13.6 % (11.5-14.5); RDW Standard Deviation 44.2 fL (36.4-46.3); White Blood Count 7.93 K/uL (4.8-10.8)
[2021-07-09 07:10] LABS: Albumin Level 3.1 gm/dl (3.4-5.0); BUN Creatinine Ratio 21.6 (10-20); Calcium 8.7 mg/dl (8.5-10.1); Creatinine Clr Calc Pharmacy 107.3 ml/min; Est GFR (African American) 74.4 ml/min; Est GFR (Non-African American) 64.2 ml/min; Magnesium 2.3 mg/dl (1.8-2.4)
[2021-07-09 07:14] LABS: Albumin Globulin Ratio 0.8 (0.9-2); Bilirubin,Total 0.4 mg/dl (0.2-1); Globulin 4.1 gm/dl (2.5-4.0); Total Protein 7.2 gm/dl (6.4-8.2)
[2021-07-09 07:59] LABS: Estimated Average Glucose 117 mg/dl; Hemoglobin A1C 5.7 % (4.5-5.6)
[2021-07-09] MEDS ORDERED: ASPIRIN 81 MG ECTAB PO SCH (09:00)
[2021-07-09] MEDS ORDERED: amLODIPine BESYLATE 5 MG TAB PO SCH (09:00)
[2021-07-09] MEDS ORDERED: LOSARTAN POTASSIUM 50 MG TAB PO SCH (09:00)
[2021-07-09] MEDS ORDERED: predniSONE 20 MG TAB PO SCH ×2 (09:00)
[2021-07-09] MEDS ORDERED: ATORVASTATIN 10 MG TAB PO SCH (09:00)
[2021-07-09] MEDS ORDERED: hydroCHLOROthiazide 25 MG TAB PO SCH (09:00)
[2021-07-09] MEDS ORDERED: TAMSULOSIN HCL 0.4 MG CAP PO SCH (09:00)
[2021-07-09] MEDS ORDERED: hydrALAZINE HCL 20 MG/ML VIAL IV ONE (09:46)
--- NOTE | 2021-07-09 09:58 | Electrocardiogram Report ---
Test Reason : Blood Pressure : / mmHG Vent. Rate : 079 BPM Atrial Rate : 079 BPM P-R Int : 170 ms QRS Dur : 098 ms QT Int : 366 ms P-R-T Axes : 062 012 052 degrees QTc Int : 419 ms Sinus rhythm with frequent Premature ventricular complexes Otherwise normal ECG When compared with ECG of 31-JUL-2016 06:29, Premature ventricular complexes are now Present Confirmed by Mark Olivera ([id number]) on 07/09/2021 9:57:58 AM Referred By: Diamante Parisi Confirmed By:Mark Olivera
--- NOTE | 2021-07-09 11:53 | Discharge Summary ---
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 He presented today for routine colonoscopy by Dr. Guillermo. He received propofol and lidocaine for anesthesia and tolerated the procedure well. After procedure patient developed tunnel vision, weakness, and felt as if he was going to pass out. This occurred 3 times post procedurally, with a eye deviation to the left per anesthesia on each occasion. He does report chronic neck pain and issues with moving neck in flexion and to the right due to history of C3 fracture. Reports his neck was incredibly stiff after procedure due to position of pillow. He denies any history of seizure. Also denies previous adverse effects with anesthesia. He admits to having PVCs however reports this is chronic and well-known. During all 3 of these events vital signs remained stable. Blood glucose was 89 on recheck and he has since been able to drink without any difficulty. Patient has been gotten up to ambulate to and from the bathroom without any difficulty in post endoscopy suite. He reports complete resolvent of his symptoms at this point in time, his is sitting at bedside. He is agreeable to hospital stay overnight for observation after discussion of risks/benefits. agrees. Admission Exam Per Admitting Provider General: awake, alert, no apparent distress, obese with BMI of 42.1 Head: Normocephalic, atraumatic ENT: PERRL, EOMI, no pharyngeal exudate, mucous membranes moist Chest: Clear to auscultation, on room air, no adventitious breath sounds Cardiac: Regular rate and rhythm, no murmur, no JVD, normal peripheral pulses, good capillary refill Abdominal: NABS x 4 quadrants, soft, nondistended, nontender to palpation, no rebound or guarding Extremities: Normal inspection, no peripheral edema or erythema, calfs nontender to palpation Psych: Normal mood and affect Neuro: AAO x 3, strength intact bilaterally and rated 5/5, no motor deficits, speech is clear, no peripheral sensory deficits Principal Diagnosis Syncope: Hypertension: GERD (gastroesophageal reflux disease): Screening colonoscopy Discharge Exam General- No acute distress Head- atraumatic Eyes- PERRL, EOMI, ENT- oropharynx clear Neck- supple, no JVD Lungs- clear to auscultation Heart- regular rhythm; no murmur Abdomen- normal bowel sounds, soft, nontender Extremities- no calf tenderness Neuro- alert, oriented x 3; PERRL, EOMI; no facial palsy; no dysarthria Skin- warm & dry Discharge Data Allergies Allergy/AdvReac Type Severity Reaction Status Date / Time mometasone furoate Allergy Unknown NOSE Verified 07/08/21 08:00 IRRITATION,"SCABBED UP" oxycodone AdvReac Severe violently Verified 07/08/21 08:00 "sick" Procedures Performed Operation Date: 07/08/21 09:45 Actual Procedures p Colonoscopy - Aspen Guillermo MD Ordered Studies 07/08/21 13:47 CT head/brain wo con Routine 07/08/21 16:58 CT cervical spine wo con Routine CERVICAL SPINE CT CT DOSE: 492.75 mGy.cm HISTORY: Neck pain. C3 fracture TECHNIQUE: Multiaxial CT images of the cervical spine were performed and reformatted in the sagittal and coronal plane without the use of contrast. A dose lowering technique was utilized adhering to the principles of ALARA. COMPARISON: None. FINDINGS: No fractures. No subluxation. Prevertebral soft tissues and the C1-C2 interval are intact. No pneumothorax. The CT C3 vertebral bodies and facets are fused. There is mild to moderate degenerative disc disease throughout the cervical spine. IMPRESSION: No fractures within the cervical spine. ACT 112: Negative or not required by law. Electronically signed by: Ehsan Lowry M.D. 07/08/2021 5:52 PM Dictated:[id number] Transcribed: 07/08/211746 HEAD CT NONCONTRAST CT DOSE: 1035.81 mGycm HISTORY: left eye deviation, syncopal episode TECHNIQUE: Multiaxial CT images of the head were performed without the use of intravenous contrast. Automated exposure control was utilized for this study. A dose lowering technique was utilized adhering to the principles of ALARA. Comparison: Head CT 02/16/2010. Findings: The paranasal sinuses and mastoid air cells are clear. The calvarium and skull base are intact. The ventricles and sulci are within normal limits. There is no mass, hematoma, midline shift, or acute infarct. Incidental note is made of a punctate metallic density within the left temporal subcutaneous soft tissues. Impression: No acute intracranial abnormality. ACT 112: Negative or not required by law. Electronically signed by: Ehsan Lowry M.D. 07/08/2021 4:02 PM Dictated:07/08/[id number] Transcribed: 07/08/211557 Hospital Course (1) Syncope: -Admit to med surg with telemetry for observation -Check head CT, neck CT to evaluate for syncopal episode x3 - -Follow on cardiac monitoring, follows with cardiology as an outpatient, Aiden Nicolas PA-C -EKG now -Check 2D echo stat, last was completed in August 2020 and had normal LVEF, no valvular abnormalities, no wall motion abnormalities -Check CBC, CMP, troponin, mag, Ari now -Add on lipid and A1c panel -Allow diet cardiac (2) Hypertension: -Continue oral antihypertensives, blood pressure remained stable 3 syncopal episodes -We will check orthostatics x1 (3) Coagulation factor disorder: --Follows with Dr. Cho with hematology as outpatient, received 2 units FFP prior to colonoscopy today (4) Abnormal coagulation profile: -INR evaluated at 1.3 today, follow with a.m. labs -As above (5) GERD (gastroesophageal reflux disease): -Continue medications - teds, scds CODE: Full code Dispo: From home, with for observation, likely to remain in hospital overnight be able to be discharged home pending normal imaging, lab work, EKG and echocardiogram. Total Time Total Time Spent Total Time Spent (In Minutes): 35 minutes Discharge Plan Discharge Items Patient Disposition: Home - Self-Care Reason For Visit: SYNCOPAL EPISODE, LEFT EYE DEVIATION Discharge Diagnosis: Syncope: Hypertension: GERD (gastroesophageal reflux disease): Screening colonoscopy Activity: Resume your previous activity Non-emergency contact: Primary Care Provider Call non-emergency contact if: your temperature is above 101.5 Follow-up/Referrals: Diamante Parisi DO [Primary Care Provider] - 07/15/21 11:00 am (Date & Time 07/15/2021 11:00 AM Provider Diamante Parisi DO Department [facility] PLEASE NOTE THAT THE EARLIER APPOINTMENT THAT WAS SCHEDULED FOR 9:20 AM WAS RESCHEDULED TO 11:00AM. THANK YOU) Diet: Heart Healthy Addtl Attending Provider Instructions: Follow up with your primary care provider: 07/15/2021 11:00 AM Provider DO [facility] Continue monitor your blood pressure and follow a low salt diet Seek medical attention if your symptoms reoccur Fall precaution IF YOU EXPERIENCE ANY OF THE FOLLOWING SYMPTOMS AFTER YOUR PROCEDURE CALL YOUR PRIMARY CARE PHYSICIAN IMMEDIATELY OR SEEK MEDICAL ATTENTION AT YOUR NEAREST EMERGENCY ROOM: 1. SEVERE abdominal pain or bloating 2. FEVER greater than 101.1 degrees within 24 hours after the procedure 3. LARGE AMOUNTS OF BLEEDING greater than 2-3 tablespoons. If you had a polyp/s removed or have hemorrhoids, a small amount of blood from the rectum is to be expected. 4. A localized irritation of the vein may occur at the site of the IV injection. Hot moist packs to the vein applied 4-6 times per day may reduce pain and irritation. A tender lump may develop and remain for several weeks to several months, but goes away eventually. If the area continues to be painful or becomes red and hot to the touch. For routine questions call [facility] at [phone]. * Avoid the use of alcohol and sedatives for 24 hours. Pending Studies at Discharge: No Stand-Alone Forms: My [facility] Medications and DC Order Prescriptions: Continued losartan 100 mg Tablet 100 mg PO QAM RF: 0 furosemide 20 mg Tablet 20 mg PO 2XWK PRN (Reason: leg swelling) RF: 0 hydrocodone-acetaminophen 5-325 mg tablet 1 - 2 tab PO Q6H MDD 8 tabs PRN (Reason: pain) Qty: 24 RF: 0 carisoprodol [Soma] 350 mg Tablet 350 mg PO QID PRN (Reason: Muscle Pain) RF: 0 atorvastatin 20 mg Tablet 10 mg PO 3XWK RF: 0 fexofenadine 180 mg Tablet 180 mg PO DAILY PRN (Reason: Allergic Symptoms) RF: 0 aspirin 81 mg Tablet,Delayed Release (Dr/Ec) 81 mg PO Q2D RF: 0 ascorbic acid (vitamin C) 500 mg Tablet 500 mg PO QPM RF: 0 diazepam 2 mg Tablet 2 mg PO DAILY PRN (Reason: ud) RF: 0 hydrochlorothiazide 25 mg Tablet 25 mg PO QAM RF: 0 fluticasone propionate [Flonase Allergy Relief] 50 mcg/actuation [place],Suspension 1 spray INTRANASAL DAILY PRN (Reason: ud) RF: 0 omeprazole magnesium [Prilosec OTC] 20 mg Tablet,Delayed Release (Dr/Ec) 20 mg PO QPM RF: 0 amlodipine 5 mg Tablet 5 mg PO QAM RF: 0 tamsulosin [Flomax] 0.4 mg Capsule 0.4 mg PO QAM RF: 0 prednisone 20 mg Tablet 20 mg PO DAILY RF: 0 Discharge Orders: Discharge Order (Routine); Ordered 07/09/21 Ordered By: Jocelyn Ledesma/Other Patient Handouts: Causes of Syncope Admission Data Admit Date/Time: 07/08/21 13:47 Attending Provider: Jocelyn Antunez Admit Provider: Jocelyn Antunez Primary Care Provider: Diamante Parisi Other Providers: Aspen Guillermo Other Interventions: Discharge Summary Assessment (RN) Last Done: 07/09/21 11:54
== END 2021-07-09 12:11 | disposition home or self-care (01) ==
LOC: 3E 07:48 → ENDO 07:48

== ENCOUNTER 2021-12-16 13:00 | Observation (INO) ==
--- NOTE | 2021-12-01 16:09 | Anesthesiology Consultation ---
Date of Service December 01, 2021 Assessment & Plan (1) Encounter for pre-operative examination: Chart Review Chart Review: Acceptable Risk for Surgery (pending preop heme recommendations and preop Covid testing results ) and Patient NOT seen in Pre Admission Testing -Will leave to anesthesiologist discretion DOS if repeat coags needed DOS - Did inform [facility] office of upcoming surgery and recommendations prior to surgery (pt usually gets 2 units of FFP prior to procedures). Dr. Land is out of the office until 12/06/21- heme office will send response with recommendations at that time. Surgeon's office aware of bleeding disorder. Awaiting formal recommendations from heme/onc regarding preop instructions prior to surgery. Surgeon's office will inform [facility] regarding FFP prior to surgery Per nursing assessment 12/01/2021, patient denies any recent travel. No known Covid infection in the past 90 days. Patient is fully vaccinated for Covid. No known Covid positive exposures or Covid related symptoms. Preop Covid testing scheduled 12/14/21= will await results Pt last seen by cardio 07/05/21= Patient seen for cardiology follow-up. Last seen 1 month earlier presenting with mild acute decompensated diastolic heart failure and chronic arthralgias. Recommended utilization of Lasix. Statin medication discontinued. Arthralgias improved with statin discontinuation. Presents feeling better. Continue Lasix as prescribed. Continue without lipid- lowering therapy for nowtrialing Zetia. Follow-up in 6 months. History Surgery Operation Date: 12/16/21 13:55 Proposed Procedures p Left Shoulder Arthroscopy with Subacromial Decompression, Distal Clavicle Excision, Debridement Rotator Cuff, Labrum and Glenohumeral Joint, Rotator Cuff Repair with Regeneten, Excision Loose Body - Jose De Jesus Carrero MD Height/Weight Height: 6 ft 6 in Weight: 167.829 kg Allergies Allergy/AdvReac Type Severity Reaction Status Date / Time mometasone furoate Allergy Unknown NOSE Verified 12/01/21 10:45 IRRITATION,"SCABBED UP" oxycodone AdvReac Severe violently Verified 12/01/21 10:45 "sick" Medications Home Medications Medication Instructions Recorded Confirmed Last Taken aspirin 81 mg tablet,delayed 81 mg PO 3XWK 10/22/19 12/01/21 07/07/21 release carisoprodol 350 mg tablet (Soma) 350 mg PO QID PRN 10/22/19 12/01/21 07/06/21 fexofenadine 180 mg tablet 180 mg PO DAILY PRN 10/22/19 12/01/21 07/07/21 fluticasone propionate 50 1 spray INTRANASAL DAILY PRN 10/22/19 12/01/21 07/08/21 06:30 mcg/actuation nasal spray,suspension (Flonase Allergy Relief) hydrochlorothiazide 25 mg tablet 25 mg PO QAM 10/22/19 12/01/21 07/07/21 omeprazole magnesium 20 mg 20 mg PO QPM 10/22/19 12/01/21 07/06/21 tablet,delayed release (Prilosec OTC) amlodipine 5 mg tablet 5 mg PO QAM 10/24/19 12/01/21 07/08/21 06:30 furosemide 20 mg tablet 20 mg PO 3XWK PRN 09/07/20 12/01/21 07/07/21 losartan 100 mg tablet 100 mg PO QPM 09/07/20 12/01/21 07/08/21 06:30 hydrocodone 5 mg-acetaminophen 325 1 - 2 tab PO Q6H PRN #24 tab MDD 8 09/16/20 12/01/21 07/06/21 mg tablet tabs tamsulosin 0.4 mg capsule (Flomax) 0.4 mg PO QAM 07/01/21 12/01/21 07/07/21 allopurinol 100 mg tablet 100 mg PO QAM 12/01/21 12/01/21 Unknown azelastine 137 mcg (0.1 %) nasal 2 spray INTRANASAL QPM 12/01/21 12/01/21 Unknown spray aerosol potassium citrate 10 mEq (1,080 10 meq PO BID 12/01/21 12/01/21 Unknown mg) tablet,extended release tramadol 50 mg tablet 50 - 100 mg PO BID PRN 12/01/21 12/01/21 Unknown Past Medical History Medical History (Updated 12/02/21 @ 11:51 by Zoey Valencia PA-C) Abnormal coagulation profile "Prolonged PT and PTT, all factor levels are normal, defect corrects with 50:50 mixing study, all invasive procedures should correct with 2 units FFP, test PT & act PTT after infusion to confirm correction. " Chronic back pain Chronic neck pain Claustrophobia Degenerative disc disease Diastolic dysfunction With prior episodes of acute diastolic heart failure/volume overload occurring in the setting of uncontrolled hypertension as well as high-dose gabapentin and amlodipine therapies. Dyspnea with exertion (started Jul 2020) -- following with [facility] cardiology. Negative DSE 08/2020. GERD (gastroesophageal reflux disease) Gout History of anesthesia reaction Admitted overnight following colonoscopy 06/2021 [facility] syncopal episodes -Seen by PCP 07/20/21 for hospital follow up- no issues on additional work up in hospital per PCP note- vitals stable during admssion History of cervical fracture ~1999 with hairline fracture at ~C3. no surgery at that time. Full ROM History of kidney stones [place] (hard of hearing) Hyperlipidemia Hypertension Leg edema monitoring with cardiology Osteoarthritis Past Family History Family History Other No family history of adverse response to anesthesia Past Surgical History Surgical History H/O arthroscopy of shoulder Right History of arthroscopy of right knee History of cardiac cath APPROX 10 YEARS AGO FOR CHEST PAIN WITH STRONG FHX OF CAD - [facility] - NO STENTS History of colonoscopy History of cystoscopy W/ STONE EXTRACTION History of lumbar discectomy History of tonsillectomy Nausea and vomiting after administration of anesthetic agent S/P epidural steroid injection Lumbar and cervical Social History Smoking Status: Never smoker tobacco type: cigarettes and smokeless tobacco Do You Dip or Chew Tobacco: No (quit in 1999) Smoking End Date: > 30 years ago Hx Alcohol Use: Yes Alcohol type: beer alcohol intake frequency: holidays/special occasions only Hx Substance Use: No substance use type: does not use Testing Laboratory Results 11/29/21= WBC: 5.34 H/H: 14.5/43.5 PLATELETS: 192 SODIUM: 139 POTASSIUM: 4.5 CHLORIDE: 104 CO2: 24 BUN: 16 CREATININE: 1.2 GLUCOSE: 139 PT: 18.0 PTT: 39 INR: 1.47 Electrocardiogram Date: 11/29/21 Sinus rhythm with occasional PVCs at 70 bpm. Otherwise normal EKG per cardio. Chest X-Ray Date: 06/11/21 Findings: + NAD Echocardiogram Date: 07/09/21 EF: 55-60% LV Function: normal RWMA: + none Other Findings: + LVH (Mild/concentric) and + diastolic dysfunction (Grade 2) Poorly visualized valvular structures without significant stenosis or regurgitation by Doppler. Stress Test Date:09/09/20 Type:nuclear Resting EF:66% Myocardial perfusion imaging is normal.Overall left ventricular systolic function was normal without regional wall motion abnormalities. No change compared to previous study 01/16/2017. Frequent PVCs throughout the study.
--- NOTE | 2021-12-15 17:17 | History & Physical Report ---
Date of Service December 15, 2021 Assessment & Plan (1) Partial tear of rotator cuff: Plan: Treatment options discussed with the patient. He would like to proceed with surgical intervention. He has failed conservative measures as above. Risks, benefits and alternatives to surgery including but not limited to infection, DVT, pain, stiffness, need for revision surgery, damage to blood vessels, damage to nerves, PE, , were discussed with the patient and they wish to proceed. Plan for left shoulder arthroscopy with subacromial decompression, distal clavicle excision, excision of loose body, debridement labrum, debridement glenohumeral joint, rotator cuff repair with Regeneten biologic implant. Surgery scheduled for December 16, [address] Carrero at [facility]. All questions were answered. Patient will follow up postoperatively. Rotator cuff tear trauma status: nontraumatic Laterality: left Qualified Code(s): M75.112 - Incomplete rotator cuff tear or rupture of left shoulder, not specified as traumatic History of Present Illness Chief Complaint: Left shoulder pain Primary Care Provider: Diamante Parisi DO 66-year-old male past medical history significant for GERD, gout, hypertension, factor X deficiency presents with ongoing left shoulder pain. He has failed conservative measures including cortisone injection, anti-inflammatories, physical therapy. Therapy is making his pain worse. Pain is interfering with his daily activities. He would like to proceed with surgical intervention. Denies headaches, sweats, fevers, chills, double vision, blurred vision, cough, sore throat, dysphagia, chest pain, sob, wheezing, n/v/d/c, numbness, tingling, fatigue, urinary symptoms, mood disorders. ROS positive for left shoulder pain and stiffness. Allergies Allergy/AdvReac Type Severity Reaction Status Date / Time mometasone furoate Allergy Unknown NOSE Verified 12/01/21 10:45 IRRITATION,"SCABBED UP" oxycodone AdvReac Severe violently Verified 12/01/21 10:45 "sick" Home Medications Medication Instructions Recorded Confirmed Type aspirin 81 mg tablet,delayed 81 mg PO 3XWK 10/22/19 12/01/21 History release carisoprodol 350 mg tablet (Soma) 350 mg PO QID PRN 10/22/19 12/01/21 History fexofenadine 180 mg tablet 180 mg PO DAILY PRN 10/22/19 12/01/21 History fluticasone propionate 50 1 spray INTRANASAL DAILY PRN 10/22/19 12/01/21 History mcg/actuation nasal spray,suspension (Flonase Allergy Relief) hydrochlorothiazide 25 mg tablet 25 mg PO QAM 10/22/19 12/01/21 History omeprazole magnesium 20 mg 20 mg PO QPM 10/22/19 12/01/21 History tablet,delayed release (Prilosec OTC) amlodipine 5 mg tablet 5 mg PO QAM 10/24/19 12/01/21 History furosemide 20 mg tablet 20 mg PO 3XWK PRN 09/07/20 12/01/21 History losartan 100 mg tablet 100 mg PO QPM 09/07/20 12/01/21 History hydrocodone 5 mg-acetaminophen 325 1 - 2 tab PO Q6H PRN #24 tab MDD 8 09/16/20 12/01/21 Rx mg tablet tabs tamsulosin 0.4 mg capsule (Flomax) 0.4 mg PO QAM 07/01/21 12/01/21 History allopurinol 100 mg tablet 100 mg PO QAM 12/01/21 12/01/21 History azelastine 137 mcg (0.1 %) nasal 2 spray INTRANASAL QPM 12/01/21 12/01/21 History spray aerosol potassium citrate 10 mEq (1,080 10 meq PO BID 12/01/21 12/01/21 History mg) tablet,extended release tramadol 50 mg tablet 50 - 100 mg PO BID PRN 12/01/21 12/01/21 History Past Med/Surg History Medical History (Updated 12/15/21 @ 17:20 by Alvin Owusu PA-C) Abnormal coagulation profile "Prolonged PT and PTT, all factor levels are normal, defect corrects with 50:50 mixing study, all invasive procedures should correct with 2 units FFP, test PT & act PTT after infusion to confirm correction. " Chronic back pain Chronic neck pain Claustrophobia Degenerative disc disease Diastolic dysfunction With prior episodes of acute diastolic heart failure/volume overload occurring in the setting of uncontrolled hypertension as well as high-dose gabapentin and amlodipine therapies. Dyspnea with exertion (started Jul 2020) -- following with [facility] cardiology. Negative DSE 08/2020. GERD (gastroesophageal reflux disease) Gout History of anesthesia reaction Admitted overnight following colonoscopy 06/2021 [facility] syncopal episodes -Seen by PCP 07/20/21 for hospital follow up- no issues on additional work up in hospital per PCP note- vitals stable during admssion History of cervical fracture ~2000 with hairline fracture at ~C3. no surgery at that time. Full ROM History of kidney stones [place] (hard of hearing) Hyperlipidemia Hypertension Leg edema monitoring with cardiology Osteoarthritis Surgical History H/O arthroscopy of shoulder Right History of arthroscopy of right knee History of cardiac cath APPROX 10 YEARS AGO FOR CHEST PAIN WITH STRONG FHX OF CAD - [facility] - NO STENTS History of colonoscopy History of cystoscopy W/ STONE EXTRACTION History of lumbar discectomy History of tonsillectomy Nausea and vomiting after administration of anesthetic agent S/P epidural steroid injection Lumbar and cervical Family History Other No family history of adverse response to anesthesia Social History Smoking Status: Never smoker Second Hand Exposure: Yes (as a child); Hx Alcohol Use: Yes Alcohol type: beer Hx Substance Use: No Preferred Language: Somali Communication Ability: Effective Soccer Player Required: No Beliefs That Will Affect Care: None Current Living Situation: Spouse Feels Safe at Home: Yes Assistive Devices: None Review of Systems All systems reviewed & are unremarkable except as noted in HPI & below Physical Exam Constitutional: well developed and well nourished; no acute distress Eyes: PERRL, conjunctivae normal, anicteric sclerae ENMT: external ear and nose normal, oropharynx normal Neck: trachea midline, no thyromegaly Respiratory: normal respiratory effort, lungs clear to auscultation Cardiovascular: RRR, no murmur, no edema Musculoskeletal: Left shoulder: Patient has tenderness in the AC joint and anterolateral acromion. He has positive Easton's, positive impingement signs, positive cross body. Pain with resisted strength testing. Active painful range of motion, painful impingement arc. Forward flexion 160 degrees, abduction to 140 degrees, external rotation to 80 degrees. Skin: no rashes, warm and dry Neurologic: patellar DTR's 2+ bilat, sensation intact Psychiatric: A+Ox3, euthymic affect Results & Data ([facility]) Diagnostic Findings Left shoulder radiographs demonstrate arthritic changes AC joint with subchondral cystic formation and osteophyte formation. He has a type II acromion. MRI demonstrates small interstitial tear rotator cuff with rotator cuff tendinopathy, AC joint arthritis, intra-articular loose body.
[~2021-12-16 13:00] MED LIST changes: +BUPIVACAINE 0.5 % 5 MG/1 ML PF 10ML VIAL ONE; +LR 15ML/HR IV SCH; -SODIUM CHLORIDE 0.9% 250 ML IV PRN
[2021-12-16] MEDS ORDERED: SODIUM CHLORIDE 0.9% 250 ML IV PRN (14:21)
--- NOTE | 2021-12-16 14:21 | History & Physical Bridge Note ---
Date of Service December 16, 2021 History & Physical Bridge Note I have examined the patient, reviewed the History & Physical and in the interval since the performance of the History & Physical I have noted the following changes of clinical significance: no changes noted
[2021-12-16] MEDS ORDERED: ONDANSETRON INJ 2 MG/ML 2 ML VIAL ONE (15:13)
[2021-12-16] MEDS ORDERED: MIDAZOLAM HCL 1 MG/ML 2ML VIAL ONE ×3 (15:13→15:56)
[2021-12-16] MEDS ORDERED: fentaNYL citrate 100 MCG/2 ML VIAL ONE ×2 (15:13→15:56)
[2021-12-16] MEDS ORDERED: PROPOFOL IV EMULSION 10 MG/ML 20 ML VIAL IV ONE (15:13)
[2021-12-16] MEDS ORDERED: DEXAMETHASONE SOD INJ 4 MG/ML VIAL ONE (15:13)
[2021-12-16] MEDS ORDERED: EpINEphrine HCL INJ 1 MG/ML 1ML SYRINGE ONE ×2 (15:50→17:25)
[2021-12-16] MEDS ORDERED: KETAMINE 50 MG/5 ML SYRINGE ONE (16:26)
[2021-12-16] MEDS ORDERED: PROMETHAZINE HCL 6.25 MG in SODIUM CHLORIDE 0.9% 50 ML IV PRN (16:48)
[2021-12-16] MEDS ORDERED: fentaNYL citrate 100 MCG/2 ML VIAL IV PRN (16:48)
[2021-12-16] MEDS ORDERED: ATROPINE SULFATE 0.1 MG/ML 10ML SYR IV PRN (16:48)
[2021-12-16] MEDS ORDERED: ePHEDrine sulfate 50 MG/ML AMP IV PRN (16:48)
[2021-12-16] MEDS ORDERED: ONDANSETRON INJ 2 MG/ML 2 ML VIAL IV PRN (16:48)
[2021-12-16] MEDS ORDERED: SUCCINYLCHOLINE CHLORIDE 20 MG/ML 10 ML VIAL IV ONE (17:56)
[2021-12-16] MEDS ORDERED: ePHEDrine sulfate 50 MG/ML AMP ONE (17:56)
[2021-12-16] MEDS ORDERED: PHENYLEPHRINE HCL 10 MG/ML VIAL ONE (17:56)
--- NOTE | 2021-12-16 18:10 | Post Operative Brief Note ---
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 Operation Date: 12/16/21 15:15 <No data on this case meets the specified criteria> Postop diagnosis: Same, chronic subacromial bursitis bursal sided rotator cuff tendinopathy without any high-grade tear with MRI identified interstitial tear. I identified the patient and participated in the time-out.: Yes Procedure Operation Date: 12/16/21 15:15 Actual Procedures Left shoulder arthroscopy with rotator cuff repair with Regeneten biological implant, debridement glenohumeral joint glenoid labral tear subacromial bursa bursal surface rotator cuff, excision loose body 10 x 6 mm, subacromial decompression, distal clavicle excision, increased difficulty BMI 43.9. Surgeon Jose De Jesus Carrero MD Receiving Tank Operator Demarcus TEIXEIRA Estimated Blood Loss 10 Findings Consistent with Post-Op Diagnosis Anesthesia Type General Regional Complications none Disposition Disposition: Recovery Room Overlapping Procedure I was immediately available: during the entire case.
[2021-12-16] MEDS ORDERED: HYDROCODONE/ACETAMOPHEN 5/325MG TAB PO PRN ×2 (18:22→20:01)
--- NOTE | 2021-12-16 18:25 | Operative Report ---
Post Operative Report Pre & Post Diagnosis Preop diagnosis: Chronic left shoulder pain, glenohumeral osteoarthritis, loose body glenohumeral joint, subacromial impingement, acromioclavicular joint osteoarthritis, interstitial tear rotator cuff, obesity BMI 43.9, factor X deficiency. Operation Date: 12/16/21 15:15 <No data on this case meets the specified criteria> Postoperative diagnosis: Same, bursal side rotator cuff tendinopathy with subacromial bursitis and degenerative glenoid labral tear and loose body 10 x 6 mm and interstitial tear rotator cuff. I identified the patient and participated in the time-out.: Yes Procedure Operation Date: 12/16/21 15:15 Actual Procedures Left shoulder arthroscopic rotator cuff repair with Regeneten biological implant; extensive debridement including glenohumeral joint articular surfaces humeral head and glenoid, glenoid labral tear debridement, bursal side rotator cuff debridement, subacromial bursa; subacromial decompression and distal clavic le excision and increased difficulty due to BMI 43.9 Jose De Jesus Carrero MD Surgeon Jose De Jesus Carrero MD Bracelet Maker Novelty Demarcus TEIXEIRA Estimated Blood Loss 10 Findings Consistent with Post-Op Diagnosis Specimens None Anesthesia Type General Regional Complications none Disposition Disposition: Recovery Room Indications 66 a male with chronic progressive left shoulder pain failed conservative management. History of previous right shoulder arthroscopic procedure with good results. Left shoulder demonstrates osteoarthritis glenohumeral joint not [id number]. MRI demonstrates loose body glenohumeral joint with interstitial tear rotator cuff supraspinatus tendon with subacromial impingement and AC joint osteoarthritis. Patient has factor X deficiency requiring preoperative platelets. Very large male with BMI 43.9. Some of his BMI due to muscle mass. Description of Procedure The patient was to the operating room anesthetized under regional block and general anesthesia. Initially anesthesia placed a LMA in place but after sitting him up there were concerned about maintaining airway so they went ahead and formally intubated the patient without difficulty. He was then positioned with some increased difficulty on the Schlein shoulder table due to his very large size. He was positioned in good position on a [facility] shoulder table. The patient was positioned on the in the 70 beach chair position. All of the other extremities were well-padded. The left upper extremity was prepped and draped in the usual sterile fashion. Examination demonstrated very large arm heavy due to both muscle mass and large size of individual. He had decreased forward flexion to about 150 degrees and external rotation to 60 degrees and internal rotation 80 degrees and abduction to 90 degrees. Decreased motion consistent with OA glenohumeral joint. Arthroscopy of the shoulder was performed via anterior and posterior arthroscopy portals. Posterior portal was placed in the soft spot and the anterior portal was placed in the rotator interval. Subsequent portals included lateral subacromial portal and the anterior posterior superior lateral incisions for staple placement. The following findings were noted: There was a loose body in the glenohumeral joint. Loose body was large enough that we could remove with a shaver and required placing an anterior cannula to remove it. Later measured at 10 x 6 mm. The lower surface of the humeral head articular surface central to posterior area demonstrated articular thinning with grade 4 articular wear with surrounding delaminating flaps. There were unstable delaminating flaps around lesion. The anterior-inferior inferior and posterior inferior labrum had significant degenerative tearing and the articular cartilage had grade 3 close to grade 4 osteoarthritis in a crescent shape in the lower 15% of the glenoid articular surface. Rotator cuff had a yellow discoloration to the mid supraspinatus area consistent with tendinopathy but no fraying. Biceps tendon was intact and subscapularis tendon was intact. Biceps anchor was intact. Superior labrum was intact and normal. Subacromial space was a type II acromion with subacromial impingement with hypertrophic AC joint osteoarthritis with a very low-lying distal clavicle causing significant impingement. There was chronic subacromial bursitis and some bursal sided fraying of the rotator cuff and area of question in the supraspinatus. Attention was first taken to removing the loose body via a clear working cannula using a toothed grasper. A 4.5 full-radius resector was used to debride the frayed labrum back to stable edges. The grade III chondromalacia of lower glenoid and laminating flaps were debrided back to smooth area. In the delaminating flaps around grade 4 lesion humeral head were debrided back to stable margins. A thorough subacromial bursectomy was performed and a light debridement of the bursal surface of the rotator cuff was performed. The bursa and periosteum on the undersurface of the acromion was ablated with the radiofrequency ablator and the CA ligament was released off the anterior acromion. The CA ligament was debrided back. A 5.5 bur was used to plane down the acromion to type I flat shape. A radio frequency ablator was used to ablate the undersurface of 1 cm of the distal clavicle ablating the inferior capsule. This exposed the spurs on the undersurface of the clavicle. A 5.5 bur was used to resect 1 cm distal clavicle using the bettye through both the lateral and anterior portal. The superior and posterior capsule was preserved for stability. A medium size Regeneten biological implant was placed over the area of the supraspinatus tendon where the tendinopathy was located. It was transfixed with multiple biological resorbable tiffanie. The implant was stable with passive range of motion there is no impingement. The portal sites were closed with interrupted nylon sutures. Sterile dressings were applied and a sling immobilizer. The patient tolerated the procedure well. There was increased level difficulty to the patient's large size which added released 40 minutes of procedure including issues with anesthesia and positioning and the procedure itself. My physician assistant designer Demarcus TEIXEIRA acted as list of first job ideas and assisted in arm positioning, instrument management, stabilization of the graft during staple application as well as critical arm positioning at that time, incision closure, sling application, and will participate in the postoperative care of the patient. I attest to the content of the Intraoperative Record and any orders documented therein. Any exceptions are noted below.
[2021-12-16] MEDS ORDERED: bisacodyL 10 MG SUPP PR PRN (20:01)
[2021-12-16] MEDS ORDERED: NALOXONE HCL 0.4 MG/1 ML VIAL/CARP IV PRN (20:01)
[2021-12-16] MEDS ORDERED: METOCLOPRAMIDE HCL INJ 5 MG/ML 2 ML VIAL IV PRN (20:01)
[2021-12-16] MEDS ORDERED: MAGNESIUM HYDROXIDE SUSP 30 ML UDC PO PRN (20:01)
[2021-12-16] MEDS ORDERED: TAMSULOSIN HCL 0.4 MG CAP PO PRN (20:01)
[2021-12-16] MEDS ORDERED: FEXOFENADINE HCL 180 MG TAB PO PRN (20:13)
[2021-12-16] MEDS ORDERED: CARISOPRODOL 350 MG TABLET PO PRN (20:13)
[2021-12-16] MEDS ORDERED: SODIUM CHLORIDE 0.9% 1000ML 1,000 ML IV SCH (20:15)
--- NOTE | 2021-12-16 20:33 | Anesthesiology Progress Note ---
Date of Service December 16, 2021 Anesthesia Post Procedure Vital Signs Vital Signs: Temp Pulse Pulse Pulse Resp BP BP 12/16/21 19:58 36.5 C 77 22 141/86 H 12/16/21 19:28 36.5 C 75 24 122/74 12/16/21 19:21 75 22 140/75 12/16/21 19:11 36.1 C L 74 26 H 149/82 H 12/16/21 19:01 73 23 150/84 H 12/16/21 18:51 71 23 145/84 H 12/16/21 18:41 72 30 H 154/87 H 12/16/21 18:31 36 C L 76 27 H 149/88 H 12/16/21 16:10 37.1 C 75 20 128/88 12/16/21 15:40 37.1 C 76 20 128/88 12/16/21 15:28 37.0 C 71 20 134/86 12/16/21 15:08 37.1 C 57 L 20 115/82 12/16/21 13:41 37.1 C 62 20 141/80 H Pulse Ox 12/16/21 19:58 92 12/16/21 19:28 91 12/16/21 19:21 91 12/16/21 19:11 94 12/16/21 19:01 94 12/16/21 18:51 94 12/16/21 18:41 94 12/16/21 18:31 91 12/16/21 16:10 96 12/16/21 15:40 95 12/16/21 15:28 99 12/16/21 15:08 94 12/16/21 13:41 96 stable and ok in pacu, complaining of more pain in shoulder - will leave it o patient if he fels ok to go home, otherwise they will contact Dr Carrero. Pain Intensity Left Shoulder: Pain Intensity: 10 Transfer of Care Handoff Completed per policy Notes Mental Status: alert / awake / arousable Patient Amnestic to Procedure: Yes Nausea / Vomiting: adequately controlled Pain: adequately controlled Airway Patency, RR, SpO2: stable & adequate BP & HR: stable & adequate Hydration State: stable & adequate Anesthetic Complications: no major complications apparent
[2021-12-16] MEDS ORDERED: LOSARTAN POTASSIUM 50 MG TAB PO SCH (21:00)
[2021-12-16] MEDS ORDERED: PANTOprazole 40 MG TAB PO SCH (21:00)
[2021-12-16] MEDS ORDERED: SENNA 8.6 MG TAB PO SCH (21:00)
[2021-12-16] MEDS ORDERED: AZELASTINE HCL 0.1% NASAL 200 SPRAYS/27,400 MCG BTL SCH (21:00)
[2021-12-16] MEDS: HYDROmorphone INJ 0.5 MG/0.5 ML SYR IV PRN (21:04)
[2021-12-16] MEDS: ONDANSETRON INJ 2 MG/ML 2 ML VIAL IV PRN (21:04)
[2021-12-16] MEDS: KETOROLAC TROMETHAMINE 15 MG/ML VIAL IV SCH (21:47)
[2021-12-16] MEDS: DOCUSATE SODIUM 100 MG CAP PO SCH (21:48)
[2021-12-16] MEDS: POTASSIUM CITRATE 10 MEQ TAB PO SCH (21:49)
[2021-12-17] MEDS: HYDROmorphone INJ 0.5 MG/0.5 ML SYR IV PRN ×2 (01:11→06:21)
[2021-12-17] MEDS: KETOROLAC TROMETHAMINE 15 MG/ML VIAL IV SCH ×2 (02:23→09:02)
--- NOTE | 2021-12-17 07:15 | Orthopedic Progress Note ---
Date of Service December 17, 2021 Assessment & Plan (1) Partial tear of rotator cuff: Plan: Postop day #1 left shoulder arthroscopy with subacromial decompression, distal clavicle excision, excision loose body, debridement, rotator cuff repair with Regeneten biologic implant. -PT/OT: Nonweightbearing left upper extremity, no active motion of shoulder. -DVT prophylaxis: SCDs -Pain management: IV Dilaudid and Toradol, [place] -A.m. labs: Pending -Discharge planning: Plan on discharge home today we will plan on discharge home with p.o. Dilaudid for pain control. Admission and Anticipated Discharge Date Admission Date: December 16, 2021 Subjective Postop day 1 left shoulder arthroscopy. Patient was admitted for pain control as his block was not effective. He has increased pain today, has good relief with IV Dilaudid. Also on scheduled Toradol. No other complaints. Denies chest pain, shortness of breath, headache/fever/chills, dizziness. Review of Systems Review of Systems: All systems reviewed & are unremarkable except as noted in Subjective Physical Exam Physical Exam: Left shoulder: Dressing is clean/dry/intact, sling in place. Fingers are mobile with good wrist extension. He has some mild decreased sensation to his fingers. Neurovascular status intact. Sensation the lateral aspect of upper arm intact. Constitutional: WD/WN, vitals as above Results & Data ([facility]) Vital Signs (Past 12 Hours) Vital Signs Temp Pulse Pulse Pulse Resp BP Pulse Ox 12/17/21 06:08 85 18 130/70 95 12/17/21 02:32 36.7 C 87 18 143/80 H 93 12/17/21 01:10 87 124/73 12/16/21 23:35 36.7 C 84 18 161/90 H 94 12/16/21 22:34 36.7 C 81 18 164/76 H 91 12/16/21 22:31 36.5 C 79 16 145/84 H 91 12/16/21 21:37 91 12/16/21 21:35 36.8 C 77 16 149/85 H 86 L 12/16/21 21:05 36.8 C 79 18 156/83 H 91 12/16/21 19:58 36.5 C 77 22 141/86 H 92 12/16/21 19:28 36.5 C 75 24 122/74 91 12/16/21 19:21 75 22 140/75 91 (1) Partial tear of rotator cuff Rotator cuff tear trauma status: nontraumatic Laterality: left Qualified Code(s): M75.112 - Incomplete rotator cuff tear or rupture of left shoulder, not specified as traumatic
[2021-12-17] MEDS: ONDANSETRON INJ 2 MG/ML 2 ML VIAL IV PRN (07:43)
[2021-12-17 08:50] LABS: Hematocrit (blood only) 41.2 % (42-52); Hemoglobin 13.9 g/dL (14.0-18.0); Mean Corpuscular Hemoglobin 29.6 pg (25-34); Mean Corpuscular Hgb Conc 33.7 g/dL (32-36); Mean Corpuscular Volume 87.7 fL (80-100); Mean Platelet Volume 10.7 fL (7.4-10.4); Platelet Count 212 K/uL (130-400); RDW Coefficient of Variation 13.6 % (11.5-14.5); RDW Standard Deviation 43.8 fL (36.4-46.3)
[2021-12-17] MEDS ORDERED: MULTIVITAMIN TAB PO SCH (09:00)
[2021-12-17] MEDS ORDERED: allopurinoL 100 MG TAB PO SCH (09:00)
[2021-12-17] MEDS ORDERED: FUROSEMIDE 20 MG TAB PO PRN (09:00)
[2021-12-17] MEDS ORDERED: TAMSULOSIN HCL 0.4 MG CAP PO SCH (09:00)
[2021-12-17] MEDS ORDERED: ASPIRIN 81 MG ECTAB PO SCH (09:00)
[2021-12-17] MEDS ORDERED: hydroCHLOROthiazide 25 MG TAB PO SCH (09:00)
[2021-12-17] MEDS ORDERED: amLODIPine BESYLATE 5 MG TAB PO SCH (09:00)
[2021-12-17] MEDS: POTASSIUM CITRATE 10 MEQ TAB PO SCH (09:01)
[2021-12-17] MEDS: DOCUSATE SODIUM 100 MG CAP PO SCH (09:01)
[2021-12-17 09:05] LABS: BUN Creatinine Ratio 20.7 (10-20); Calcium 8.9 mg/dl (8.5-10.1); Creatinine Clr Calc Pharmacy 108.9 ml/min; Est GFR (African American) 76.7 ml/min; Est GFR (Non-African American) 66.2 ml/min; Potassium 4.6 mmol/L (3.5-5.1)
[2021-12-17] MEDS ORDERED: HYDROmorphone HCL 2 MG TAB PO PRN (09:12)
--- NOTE | 2021-12-20 15:16 | Discharge Summary ---
Date of Service December 20, 2021 Admission HPI Per Admitting Provider 66-year-old male past medical history significant for GERD, gout, hypertension, factor X deficiency presents with ongoing left shoulder pain. He has failed conservative measures including cortisone injection, anti-inflammatories, physical therapy. Therapy is making his pain worse. Pain is interfering with his daily activities. He would like to proceed with surgical intervention. Denies headaches, sweats, fevers, chills, double vision, blurred vision, cough, sore throat, dysphagia, chest pain, sob, wheezing, n/v/d/c, numbness, tingling, fatigue, urinary symptoms, mood disorders. ROS positive for left shoulder pain and stiffness. Admission Exam Per Admitting Provider Constitutional: well developed and well nourished; no acute distress Eyes: PERRL, conjunctivae normal, anicteric sclerae ENMT: external ear and nose normal, oropharynx normal Neck: trachea midline, no thyromegaly Respiratory: normal respiratory effort, lungs clear to auscultation Cardiovascular: RRR, no murmur, no edema Musculoskeletal: Left shoulder: Patient has tenderness in the AC joint and anterolateral acromion. He has positive [place]'s, positive impingement signs, positive cross body. Pain with resisted strength testing. Active painful range of motion, painful impingement arc. Forward flexion 160 degrees, abduction to 140 degrees, external rotation to 80 degrees. Skin: no rashes, warm and dry Neurologic: patellar DTR's 2+ bilat, sensation intact Psychiatric: A+Ox3, euthymic affect Principal Diagnosis Left shoulder impingement, partial tear rotator cuff, AC joint OA, loose body Discharge Exam Left shoulder: Dressing is clean/dry/intact, sling in place. Fingers are mobile with good wrist extension. He has some mild decreased sensation to his fingers. Neurovascular status intact. Sensation the lateral aspect of upper arm intact. Constitutional WD/WN, vitals as above well developed and well nourished; no acute distress Discharge Data Allergies Allergy/AdvReac Type Severity Reaction Status Date / Time mometasone furoate Allergy Unknown NOSE Verified 12/16/21 13:27 IRRITATION,"SCABBED UP" oxycodone AdvReac Severe violently Verified 12/16/21 13:27 "sick" Procedures Performed Operation Date: 12/16/21 15:15 Actual Procedures p Left shoulder arthroscopy with rotator cuff repair with Regeneten biological implant, debridement glenohumeral joint glenoid labral tear subacromial bursa bursal surface rotator cuff, excision loose body 10 x 6 mm, subacromial decompression, distal clavicle excision, increased difficulty BMI 43.9. - Jose De Jesus Carrero MD Ordered Studies 12/16/21 05:00 US - OR guided needle placemen Routine Hospital Course (1) Partial tear of rotator cuff: Patient presented for same day admission following left shoulder arthroscopy on 12/16/21 admitted for post operative pain control. He tolerated procedure well. The Patient had an uneventful hospital course. Post-operatively, his activity was progressed and well tolerated. They participated in PT without complication. Labs remained stable- lowest hemoglobin recorded: 13.9. Pain controlled on ordered pain medications. Please refer to daily progress notes and PT notes for complete details. After exam on 12/17/21, patient was felt to be stable for discharge home with plans on attending outpatient PT. Patient will f/u in the office in about 2 weeks for further evaluation including x-rays and incision check, sooner if having any issues or concerns. Postop day #1 left shoulder arthroscopy with subacromial decompression, distal clavicle excision, excision loose body, debridement, rotator cuff repair with Regeneten biologic implant. -PT/OT: Nonweightbearing left upper extremity, no active motion of shoulder. -DVT prophylaxis: SCDs -Pain management: IV Dilaudid and Toradol, [place] -A.m. labs: Pending -Discharge planning: Plan on discharge home today we will plan on discharge home with p.o. Dilaudid for pain control. Lab Results 12/17/21 12/17/21 Range/Units 07:55 07:55 WBC 11.50 H (4.8-10.8) K/uL RBC 4.70 (4.7-6.1) M/uL Hgb 13.9 L (14.0-18.0) g/dL Hct 41.2 L (42-52) % MCV 87.7 (80-100) fL MCH 29.6 (25-34) pg MCHC 33.7 (32-36) g/dL RDW Std Deviation 43.8 (36.4-46.3) fL RDW Coeff of Shirlene 13.6 (11.5-14.5) % Plt Count 212 (130-400) K/uL MPV 10.7 H (7.4-10.4) fL Sodium 137 (136-145) mmol/L Potassium 4.6 (3.5-5.1) mmol/L Chloride 104 (98-107) mmol/L Carbon Dioxide 26 (21-32) mmol/L Anion Gap 7 (3-11) BUN 24 H (6-23) mg/dl Creatinine 1.16 (0.6-1.4) mg/dl Est Cr Clr Drug Dosing 108.9 ml/min Est GFR ( Amer) 76.7 ml/min Est GFR (Non-Af Amer) 66.2 ml/min BUN/Creatinine Ratio 20.7 H (10-20) Glucose 115 H (70-99(Fasting)) mg/dl Calcium 8.9 (8.5-10.1) mg/dl Total Time Total Time Spent Total Time Spent (In Minutes): 20 Discharge Plan Discharge Items Patient Disposition: Home - Self-Care Reason For Visit: S/P SHOULDER ARTHROSCOPY Discharge Diagnosis: Left shoulder impingement, OA, loose body, partial rotator cuff tear Activity: Per Instructions section Non-emergency contact: Surgeon Call non-emergency contact if: you have any medication questions, your pain is not controlled, your pain is concerning for you, you have a fever, your temperature is above 101 and your wound has increased drainage Follow-up/Referrals: Diamante Parisi, DO [Primary Care Provider] - Diet: Regular Addtl Attending Provider Instructions: [facility] DISCHARGE INSTRUCTIONS: ROTATOR CUFF REPAIR SELF CARE INSTRUCTIONS A. You are permitted to loosen your sling/immobilizer to move your elbow, wrist, and hand to prevent stiffness. You should use your well arm (good arm) to assist the operated extremity when trying to raise the arm away from the body, hygiene purposes. Do NOT actively try to use/engage your shoulder muscles in operative arm at this time. You should NOT do overhead activity, lifting, or attempt to reach behind your back. B. You may/may not be instructed to start Physical Therapy upon discharge depending upon the size and difficulty of the repair. You will be provided a prescription for therapy with specific restrictions, if needed, at time of discharge. C. At 48 hours post-operatively, you may change your dressing. (Leave white steri-strips intact if present). Use band-aids and change daily. You are allowed to shower at this time and get the incision area wet, but DO NOT soak or submerge incision area in water. (No baths, swimming pools, hot tubs) D. Do NOT apply soap or any ointment/lotions directly over incision. E. You may use ice as needed to operative shoulder SPECIAL CARE INSTRUCTIONS: VERY IMPORTANT TO READ AND REVIEW A. There are a few signs you need to watch for after you are home. Call [facility] at [phone] if you experience any of the following: a. Increased severe shoulder pain. Some pain is expected especially when you exercise b. Increased swelling in your shoulder or arm; pain or swelling in either upper extremity. (Note: swelling and stiffness is normal and expected for several weeks post op, depending on type of shoulder surgery you had). c. Any fluid or drainage from the incision; redness of the incision. d. Shortness of breath or chest pain. B. Please call [facility] at [phone] if you have any questions or concerns about your operation or recovery. C. Call your physician if: a. Temperature is greater than 101 degrees (F). b. Pain is not relieved by prescribed pain medications. c. Increase drainage or redness from incision. d. Unanswered questions or concerns. D. Pain Medication: a. You will be prescribed pain medication upon discharge that should last till your first post-operative appointment. b. If you experience nausea and/or skin rash, discontinue this medication and contact our office for an alternative medication. c. Caution- narcotic pain medication can cause constipation. FOLLOW UP VISIT: Please call [facility] at [phone] to schedule a follow up appointment 10-14 days from your surgery date. Stand-Alone Forms: Anesthesia/Sedation, Adult, [facility] Medications and DC Order Prescriptions: New hydromorphone [Dilaudid] 2 mg tablet 2 mg PO .Q4h-6h MDD 6 PRN (Reason: pain) Qty: 30 RF: 0 Continued losartan 100 mg Tablet 100 mg PO QPM RF: 0 furosemide [Lasix] 20 mg Tablet 20 mg PO 3XWK PRN (Reason: leg swelling) RF: 0 carisoprodol [Soma] 350 mg Tablet 350 mg PO QID PRN (Reason: Muscle Pain) RF: 0 fexofenadine [[place]ola Allergy] 180 mg Tablet 180 mg PO DAILY PRN (Reason: Allergic Symptoms) RF: 0 aspirin 81 mg Tablet,Delayed Release (Dr/Ec) 81 mg PO 3XWK RF: 0 hydrochlorothiazide 25 mg Tablet 25 mg PO QAM RF: 0 omeprazole magnesium [Prilosec OTC] 20 mg Tablet,Delayed Release (Dr/Ec) 20 mg PO QPM RF: 0 amlodipine 5 mg Tablet 5 mg PO QAM RF: 0 tamsulosin [Flomax] 0.4 mg Capsule 0.4 mg PO QAM RF: 0 allopurinol 100 mg Tablet 100 mg PO QAM RF: 0 potassium citrate 10 mEq (1,080 mg) Tablet Extended Release 10 meq PO BID RF: 0 azelastine 137 mcg (0.1 %) Aerosol,[place] 2 spray INTRANASAL QPM RF: 0 Discontinued hydrocodone-acetaminophen 5-325 mg tablet 1 - 2 tab PO Q6H MDD 8 tabs PRN (Reason: pain) Qty: 24 RF: 0 tramadol 50 mg Tablet 50 - 100 mg PO BID PRN (Reason: Pain) RF: 0 Discharge Orders: Discharge Order (Routine); Ordered 12/17/21 Ordered By: Alvin Ledesma/Other Patient Handouts: DVT Post Op Prevention Admission Data Admit Date/Time: 12/16/21 20:45 Attending Provider: Jose De Jesus Carrero Admit Provider: Jose De Jesus Carrero Primary Care Provider: Diamante Parisi Other Interventions: Discharge Summary Assessment (RN) Last Done: 12/17/21 10:42
== END 2021-12-17 13:11 | disposition home or self-care (01) ==
LOC: ASU 13:00 → 3E 13:00
DX: Z95.5 Presence of coronary angioplasty implant and graft; D68.1 Hereditary factor XI deficiency; Z88.8 Allergy status to other drugs, medicaments and biological substances; I10 Essential (primary) hypertension; E78.5 Hyperlipidemia, unspecified; Z68.41 Body mass index [BMI] 40.0-44.9, adult; K21.9 Gastro-esophageal reflux disease without esophagitis; Z98.890 Other specified postprocedural states; M19.012 Primary osteoarthritis, left shoulder; Z79.82 Long term (current) use of aspirin; E66.9 Obesity, unspecified; M75.52 Bursitis of left shoulder; Z88.5 Allergy status to narcotic agent; M75.112 Incomplete rotator cuff tear or rupture of left shoulder, not specified as traumatic; M75.42 Impingement syndrome of left shoulder; Z79.899 Other long term (current) drug therapy

== ENCOUNTER 2022-01-31 16:25 | Inpatient (IN) ==
[2022-01-31] MEDS ORDERED: MoRPHine SULFATE 10 MG/ML CARP/VIAL IV STA ×2 (17:09→19:37)
[2022-01-31] MEDS ORDERED: ONDANSETRON INJ 2 MG/ML 2 ML VIAL ONE (17:29)
[2022-01-31] MEDS ORDERED: LORazepam 2 MG/1 ML VIAL IV STA ×2 (17:39→18:35)
[2022-01-31 17:48] LABS: Basophils # (auto) 0.05 K/uL (0-0.2); Basophils % (auto) 0.6 %; Eosinophils % (auto) 2.4 %; Hemoglobin 14.3 g/dL (14.0-18.0); Immature Granulocytes # (auto) 0.03 K/uL (0.00-0.02); Immature Granulocytes % (auto) 0.4 %; Lymphocytes # (auto) 2.05 K/uL (1.2-3.4); Lymphocytes % (auto) 24.8 %; Mean Corpuscular Hemoglobin 29.5 pg (25-34); Mean Corpuscular Volume 86.8 fL (80-100); Mean Platelet Volume 10.4 fL (7.4-10.4); Monocytes # (auto) 0.69 K/uL (0.11-0.59); Monocytes % (auto) 8.4 %; Neutrophils # (auto) 5.23 K/uL (1.4-6.5); Neutrophils % (auto) 63.4 %; Platelet Count 288 K/uL (130-400); RDW Coefficient of Variation 13.7 % (11.5-14.5); RDW Standard Deviation 43.3 fL (36.4-46.3); Red Blood Count 4.84 M/uL (4.7-6.1); White Blood Count 8.25 K/uL (4.8-10.8)
[2022-01-31 18:16] LABS: Albumin Globulin Ratio 1.3 (0.9-2); Albumin Level 4.1 gm/dl (3.4-5.0); BUN Creatinine Ratio 16.5 (10-20); Bilirubin,Total 0.5 mg/dl (0.2-1.0); Calcium 8.9 mg/dl (8.5-10.1); Creatinine Clr Calc Pharmacy 113.1 ml/min; Est GFR (African American) 77.5 ml/min; Est GFR (Non-African American) 66.9 ml/min; Globulin 3.1 gm/dl (2.5-4.0); Potassium 3.5 mmol/L (3.5-5.1); Total Protein 7.2 gm/dl (6.0-8.3)
--- NOTE | 2022-01-31 18:35 | Emergency Department Note ---
Impression & Plan Cervical radiculopathy, Degenerative disc disease, cervical, Neck pain, Left shoulder pain ED Provider Note CHIEF COMPLAINT: Left neck pain radiating into the left upper extremity HISTORY OF PRESENT ILLNESS: Brennon Rankin is a 66 year old male with history of cervical degenerative disc disease with radiculopathy in his left upper extremity currently following with Dr. Cloud of pain management and Dr. Ochoa of Orthopedic spine as well as recent arthroscopic surgery to his left shoulder wi rober Vo in November 2020 who presents to the Emergency Department for evaluation of persistent pain to his left neck radiating into his left shoulder and down his arm with paresthesias and weakness which has been ongoing since his shoulder surgery 2 months prior and has since become progressively worse over the past week. The patient denies additional trauma or falls but states that his pain has gone from a constant aching pain in his shoulder to a sharp, severe pain radiating from his left neck, down his shoulder and into his 3rd-5th fingers. He also notes constant numbness/tingling in his left upper extremity and his arm feels weak . Currently, he rates his discomfort as a 10/10 which worsens with attempts of movement and has not been relieved after taking Vicodin and Soma consistently. The patient did visit Dr. Cloud of pain management today to receive an injection, however, after examining him, there were concerns for worsening spinal injury and after discussion with Dr. Ochoa, he was referred to the ED for further evaluation. The patient otherwise denies recent fevers/chill s, chest pain, shortness of breath, cough, abdominal pain, nausea or vomiting. He does have history of previous surgery to his lower back but denies pain above baseline, no new numbness/tingling in his legs, saddle paresthesias, loss of continence of his bowels/bladder or weakness in his lower extremities. REVIEW OF SYSTEMS: 10 systems were reviewed and were negative unless otherwise stated in HPI as above PHYSICAL EXAM: VITALS: Vitals are noted on the nurse's note and reviewed by myself. Vital signs stable. General: Resting in bed, appears uncomfortable but no acute distress HEENT: Normocephalic, atraumatic, PERRL, EOMI, mucous membranes moist, oropharynx clear Neck: Tender to palpation over the midline c-spine and left paraspinal musculature even with light touch, ROM limited secondary to pain Resp: Good inspiratory effort on room air, lung sounds clear bilaterally CV: Regular rate and rhythm, normal S1-S2, peripheral pulses palpated Back: Point tenderness to the midline upper-mid thoracic spine, no tenderness to palpation of the midline lumbar spine. Tender to palpation over the upper left paraspinal musculature even with light touch as noted above Abd: Obese, soft, non-tender MSK: With attention to the LUE, tender even to light touch over the shoulder and ulnar aspect of the arm down to the 3rd-5th fingers. Notes numbness/tingling down to the 3rd-5th fingers. 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 Radial pulse intact. Mild tenderness to palpation of the right shoulder, continues with FROM throughout all other extremities, sensation intact with strength 5/5 throughout Neuro: Awake, alert and oriented x 3, interacting and answering questions appropriately Differential diagnosis includes cervical strain, fracture, cervical disc disease, stenosis, radiculopathy, neurologic, musculoskeletal, as well as other pathologies were considered. EMERGENCY DEPARTMENT COURSE: Physical exam and history were performed. Nursing triage notes, EMR, and med ication list were personally reviewed. Patient is a 66 year old male with history of cervical degenerative disc disease with radiculopathy in his left upper extremity currently following with Dr. Cloud of pain management and Dr. Ochoa of Orthopedic spine as well as recent arthroscopic surgery to his left shoulder with Dr. Vo in November 2020 who presents to the Emergency Department for evaluation of persistent pain to his left neck radiating into his left shoulder and down his arm with paresthesias and weakness which has been ongoing since his shoulder surgery 2 months prior and has since become progressively worse over the past week. Additional history as described above. See physical exam as noted above. The patient was offered pain medication. IV access was established and he was given morphine 10 mg x2 throughout his emergency department course. I did contact Dr. Ochoa of orthopedic spine. He suggested obtaining an MRI of the patient's cervical spine for additional work-up. The patient was medicated with Ativan 1 mg x 2 before obtaining the MRI due to his history of claustrophobia. MRI was then obtained and reviewed by radiologist myself as below. Images did show multilevel generative changes. There was up to mild canal stenosis and moderate bilateral neuroforaminal stenosis. I did discuss the results of the MRI with Dr. Ochoa. He stated that he would admit the patient for further evaluation and ongoing management under his care. I relayed the results of the above findings as well as my discussion with Dr. Ochoa to the patient and his at bedside. They verbalized understanding and agreement with the treatment plan as above. The chart was completed utilizing [employer] Voice Recognition Software. Grammatical errors, random word insertions, pronoun errors, and incomplete sentences are an occasional consequence of this system due to software limitations, ambient noise, and hardware issues. Any formal questions or concerns about the content, text, or information contained within the body of this dictation should be directly addressed to the provider for clarification. Past Med/Surg History Medical History Abnormal coagulation profile "Prolonged PT and PTT, all factor levels are normal, defect corrects with 50:50 mixing study, all invasive procedures should correct with 2 units FFP, test PT & act PTT after infusion to confirm correction. " Chronic back pain Chronic neck pain Claustrophobia Degenerative disc disease Diastolic dysfunction With prior episodes of acute diastolic heart failure/volume overload occurring in the setting of uncontrolled hypertension as well as high-dose gabapentin and amlodipine therapies. Dyspnea with exertion (started Jul 2020) -- following with [facility] cardiology. Negative DSE 08/2020. GERD (gastroesophageal reflux disease) Gout History of anesthesia reaction Admitted overnight following colonoscopy 06/2021 [facility] syncopal episodes -Seen by PCP 07/20/21 for hospital follow up- no issues on additional work up in hospital per PCP note- vitals stable during admssion History of cervical fracture ~1999 with hairline fracture at ~C3. no surgery at that time. Full ROM History of kidney stones [place] (hard of hearing) Hyperlipidemia Hypertension Leg edema monitoring with cardiology Osteoarthritis Surgical History H/O arthroscopy of shoulder Right History of arthroscopy of right knee History of cardiac cath APPROX 10 YEARS AGO FOR CHEST PAIN WITH STRONG FHX OF CAD - [facility] - NO STENTS History of colonoscopy History of cystoscopy W/ STONE EXTRACTION History of lumbar discectomy History of tonsillectomy Nausea and vomiting after administration of anesthetic agent S/P epidural steroid injection Lumbar and cervical Family History Other No family history of adverse response to anesthesia Social History Smoking Status: Former smoker Tobacco Type: Cigarettes Second Hand Exposure: No; Hx Alcohol Use: Yes Alcohol type: hard liquor Hx Substance Use: No Preferred Language: Syrian Communication Ability: Effective Staff Development Educator Required: No Beliefs That Will Affect Care: None Current Living Situation: Spouse Feels Safe at Home: Yes Assistive Devices: None Allergies Allergies Allergy/AdvReac Type Severity Reaction Status Date / Time mometasone furoate Allergy Intermediate NOSE Verified 01/31/22 17:25 IRRITATION,"SCABBED UP" oxycodone AdvReac Severe violently Verified 01/31/22 17:25 "sick" Home Meds Home Medications Medication Instructions Recorded Confirmed aspirin 81 mg tablet,delayed 81 mg PO 3XWK 10/22/19 01/31/22 release carisoprodol 350 mg tablet (Soma) 350 mg PO QID PRN 10/22/19 01/31/22 fexofenadine 180 mg tablet 180 mg PO DAILY PRN 10/22/19 01/31/22 (Carola Allergy) hydrochlorothiazide 25 mg tablet 25 mg PO QAM 10/22/19 01/31/22 omeprazole magnesium 20 mg 20 mg PO QPM 10/22/19 01/31/22 tablet,delayed release (Prilosec OTC) amlodipine 5 mg tablet 5 mg PO QAM 10/24/19 01/31/22 furosemide 20 mg tablet (Lasix) 20 mg PO 3XWK 09/07/20 01/31/22 losartan 100 mg tablet 100 mg PO QPM 09/07/20 01/31/22 tamsulosin 0.4 mg capsule (Flomax) 0.4 mg PO QAM 07/01/21 01/31/22 allopurinol 100 mg tablet 100 mg PO QAM 12/01/21 01/31/22 azelastine 137 mcg (0.1 %) nasal 2 spray INTRANASAL QPM 12/01/21 01/31/22 spray aerosol potassium citrate 10 mEq (1,080 10 meq PO BID 03/16/22 05/16/22 mg) tablet,extended release hydrocodone 10 mg-acetaminophen 1 tab PO DAILY PRN 01/31/22 01/31/22 325 mg tablet Previous Rx's Medication Instructions Recorded hydromorphone 2 mg tablet 2 mg PO .Q4h-6h PRN #30 tab MDD 6 12/17/21 (Dilaudid) Results & Data (ED) Vital Signs Vital Signs - 24 hr 01/31/22 16:27 01/31/22 16:48 01/31/22 19:35 Temperature 36.8 C Temperature Source Temporal Artery Scan Pulse Rate 85 Pulse Rate [Apical] 97 H 52 L Respiratory Rate 18 18 16 Respiratory Effort / Characteristics Non-Labored Spontaneous Respiratory Depth Normal Normal Normal Respiratory Pattern Regular Blood Pressure 145/79 H Blood Pressure [Left Arm] 133/90 140/91 Blood Pressure Mean 101 Blood Pressure Mean [Left Arm] 104 107 Blood Pressure Position Sitting Pulse Oximetry 96 97 95 Oxygen Delivery Method Room Air Room Air Room Air Sepsis Recent Fever Within 48 Hours No Sepsis New/Unexplained Change in Mental Status N/A Sepsis Action Taken by Nursing No Action Required Laboratory Data Result diagrams: 01/31/22 17:32 01/31/22 17:32 Lab Results 01/31/22 01/31/22 01/31/22 Range/Units 17:32 17:32 17:32 WBC 8.25 (4.8-10.8) K/uL RBC 4.84 (4.7-6.1) M/uL Hgb 14.3 (14.0-18.0) g/dL Hct 42.0 (42-52) % MCV 86.8 (80-100) fL MCH 29.5 (25-34) pg MCHC 34.0 (32-36) g/dL RDW Std Deviation 43.3 (36.4-46.3) fL RDW Coeff of Shirlene 13.7 (11.5-14.5) % Plt Count 288 (130-400) K/uL MPV 10.4 (7.4-10.4) fL Immature Gran % (Auto) 0.4 % Neut % (Auto) 63.4 % Lymph % (Auto) 24.8 % Atkinson % (Auto) 8.4 % Eos % (Auto) 2.4 % Baso % (Auto) 0.6 % Neut # (Auto) 5.23 (1.4-6.5) K/uL Lymph # (Auto) 2.05 (1.2-3.4) K/uL Atkinson # (Auto) 0.69 H (0.11-0.59) K/uL Eos # (Auto) 0.20 (0-0.5) K/uL Baso # (Auto) 0.05 (0-0.2) K/uL Immature Gran # (Auto) 0.03 H (0.00-0.02) K/uL Sodium 135 L (136-145) mmol/L Potassium 3.5 (3.5-5.1) mmol/L Chloride 102 (98-107) mmol/L Carbon Dioxide 22 (21-32) mmol/L Anion Gap 11 (3-11) BUN 19 (6-23) mg/dl Creatinine 1.15 (0.6-1.4) mg/dl Est Cr Clr Drug Dosing 113.1 ml/min Est GFR ( Amer) 77.5 ml/min Est GFR (Non-Af Amer) 66.9 ml/min BUN/Creatinine Ratio 16.5 (10-20) Glucose 163 H (70-99(Fasting)) mg/dl Calcium 8.9 (8.5-10.1) mg/dl Total Bilirubin 0.5 (0.2-1.0) mg/dl AST 16 (13-39) U/L ALT 17 (7-52) U/L Alkaline Phosphatase 67 (34-104) U/L Total Protein 7.2 (6.0-8.3) gm/dl Albumin 4.1 (3.4-5.0) gm/dl Globulin 3.1 (2.5-4.0) gm/dl Albumin/Globulin Ratio 1.3 (0.9-2) SARS-CoV-2, RNA, NAAT NEGATIVE (NEGATIVE) Administered Medications Discontinued Medications Lorazepam (Lorazepam 2 Mg/1 Ml Vial) 1 mg IV PRN STA Stop: 01/31/22 17:40 Last Admin: 01/31/22 18:27 Dose: 1 mg Documented by: [id number] Lorazepam (Lorazepam 2 Mg/1 Ml Vial) 1 mg IV NOW STA Stop: 01/31/22 18:36 Last Admin: 01/31/22 18:46 Dose: 1 mg Documented by: [id number] Morphine Sulfate (Morphine Sulfate 10 Mg/Ml Carp/Vial) 10 mg IV NOW STA Stop: 01/31/22 17:10 Last Admin: 01/31/22 17:28 Dose: 10 mg Documented by: [id number] Morphine Sulfate (Morphine Sulfate 10 Mg/Ml Carp/Vial) 10 mg IV NOW STA Stop: 01/31/22 19:38 Last Admin: 01/31/22 19:47 Dose: 10 mg Documented by: [id number] Ondansetron HCl (Ondansetron Inj 2 Mg/Ml 2 Ml Vial) Confirm Administered Dose 4 mg .ROUTE .STK-MED ONE Stop: 01/31/22 17:30 Last Admin: 01/31/22 17:30 Dose: 4 mg Documented by: [id number] Ondansetron HCl (Ondansetron Inj 2 Mg/Ml 2 Ml Vial) 4 mg IV NOW STA Stop: 01/31/22 19:38 Last Admin: 01/31/22 19:47 Dose: 4 mg Documented by: [id number] Imaging Data Radiologist's Impression: Cervical Spine MRI 01/31/22 17:12 CLINICAL HISTORY: severe mid-left neck pain down L arm TECHNIQUE: MRI of the cervical spine is performed utilizing various T1 and T2 sequences in the axial and sagittal planes. IV contrast was not administered for this examination. Comparison: Comparison is made to MRI cervical spine 03/05/2020 FINDINGS: The alignment is anatomical. Disks are normal in height and signal. C2-C3: Unremarkable. C3-C4: Unremarkable. C4-C5: Small posterior disc bulge is seen. There is mild canal and bilateral neuroforaminal stenosis. C5-C6: Small posterior disc bulge is seen. There is mild canal and moderate bilateral neuroforaminal stenosis. C6-C7: Moderate bilateral neural foraminal stenosis is seen. C7-T1: Moderate bilateral neuroforaminal stenosis. The spinal ligaments are intact, without evidence of disruption or abnormal signal intensity. The spinal cord is normal in signal intensity and there is no evidence of cord contusion. There is no evidence of an extradural, intradural, extramedullary or intramedullary lesion. Visualized soft tissues are normal. Visualized brain parenchyma is normal. IMPRESSION: Multilevel degenerative changes. There is up to mild canal stenosis and moderate bilateral neural foraminal stenosis. ACT 112: Negative or not required by law. Electronically signed by: Cecilio Alonso M.D. 01/31/2022 7:46 PM Discharge Plan Visit Data Chief Complaint: Neck Injury/Pain Stated Complaint: NECK PAIN ED Provider: Gricel Salvador ED Midlevel Provider: Tamika Alas Discharge Problem: Cervical radiculopathy, Degenerative disc disease, cervical, Neck pain, Left shoulder pain Patient Disposition: Admitted As Inpatient Forms Stand Alone Forms: [facility] Prescriptions Prescriptions: No Action losartan 100 mg Tablet 100 mg PO QPM RF: 0 furosemide [Lasix] 20 mg Tablet 20 mg PO 3XWK RF: 0 carisoprodol [Soma] 350 mg Tablet 350 mg PO QID PRN (Reason: Muscle Pain) RF: 0 fexofenadine [Carola Allergy] 180 mg Tablet 180 mg PO DAILY PRN (Reason: Allergic Symptoms) RF: 0 aspirin 81 mg Tablet,Delayed Release (Dr/Ec) 81 mg PO 3XWK RF: 0 hydrochlorothiazide 25 mg Tablet 25 mg PO QAM RF: 0 omeprazole magnesium [Prilosec OTC] 20 mg Tablet,Delayed Release (Dr/Ec) 20 mg PO QPM RF: 0 amlodipine 5 mg Tablet 5 mg PO QAM RF: 0 tamsulosin [Flomax] 0.4 mg Capsule 0.4 mg PO QAM RF: 0 allopurinol 100 mg Tablet 100 mg PO QAM RF: 0 potassium citrate 10 mEq (1,080 mg) Tablet Extended Release 10 meq PO BID RF: 0 azelastine 137 mcg (0.1 %) Aerosol,[place] 2 spray INTRANASAL QPM RF: 0 hydromorphone [Dilaudid] 2 mg tablet 2 mg PO .Q4h-6h MDD 6 PRN (Reason: pain) Qty: 30 RF: 0 hydrocodone-acetaminophen 10-325 mg tablet 1 tab PO DAILY PRN (Reason: Pain) RF: 0 Referrals Referrals: Diamante Parisi, [Primary Care Provider] -
[2022-01-31] MEDS ORDERED: ONDANSETRON INJ 2 MG/ML 2 ML VIAL IV STA (19:37)
--- NOTE | 2022-01-31 19:48 | Magnetic Resonance Report ---
CLINICAL HISTORY: severe mid-left neck pain down L arm TECHNIQUE: MRI of the cervical spine is performed utilizing various T1 and T2 sequences in the axial and sagittal planes. IV contrast was not administered for this examination. Comparison: Comparison is made to MRI cervical spine 03/05/2020 FINDINGS: The alignment is anatomical. Disks are normal in height and signal. C2-C3: Unremarkable. C3-C4: Unremarkable. C4-C5: Small posterior disc bulge is seen. There is mild canal and bilateral neuroforaminal stenosis. C5-C6: Small posterior disc bulge is seen. There is mild canal and moderate bilateral neuroforaminal stenosis. C6-C7: Moderate bilateral neural foraminal stenosis is seen. C7-T1: Moderate bilateral neuroforaminal stenosis. The spinal ligaments are intact, without evidence of disruption or abnormal signal intensity. The spi nal cord is normal in signal intensity and there is no evidence of cord contusion. There is no eviden ce of an extradural, intradural, extramedullary or intramedullary lesion. Visualized soft tissues are normal. Visualized brain parenchyma is normal. IMPRESSION: Multilevel degenerative changes. There is up to mild canal stenosis and moderate bilateral neural for aminal stenosis. ACT 112: Negative or not required by law. Electronically signed by: Cecilio Alonso M.D. 01/31/2022 7:46 PM
[2022-01-31] MEDS ORDERED: HYDROmorphone INJ 0.5 MG/0.5 ML SYR IV PRN (22:15)
[2022-01-31] MEDS ORDERED: ACETAMINOPHEN 1,000 MG/100 ML VIAL IV PRN (22:15)
[2022-01-31] MEDS ORDERED: PROMETHAZINE HCL 12.5 MG in SODIUM CHLORIDE 0.9% 50 ML IV PRN (22:15)
[2022-01-31] MEDS ORDERED: LORazepam 0.5 MG TAB PO PRN (22:15)
[2022-01-31] MEDS ORDERED: CARISOPRODOL 350 MG TABLET PO PRN (22:15)
[2022-01-31] MEDS ORDERED: LORazepam 2 MG/1 ML VIAL IV PRN (22:15)
[2022-01-31] MEDS ORDERED: ONDANSETRON 4 MG OD TAB PO PRN (22:15)
[2022-01-31] MEDS ORDERED: ACETAMINOPHEN 500 MG TAB PO PRN (22:15)
[2022-01-31] MEDS ORDERED: NALOXONE HCL 0.4 MG/1 ML VIAL/CARP IV PRN (22:15)
[2022-01-31] MEDS ORDERED: FEXOFENADINE HCL 180 MG TAB PO PRN (22:15)
[2022-01-31] MEDS: LOSARTAN POTASSIUM 50 MG TAB PO SCH (23:26)
[2022-01-31] MEDS: DOCUSATE SODIUM/SENNA 50/8.6MG TAB PO SCH (23:26)
[2022-01-31] MEDS: POTASSIUM CITRATE 10 MEQ TAB PO SCH (23:26)
[2022-01-31] MEDS: PANTOprazole 40 MG TAB PO SCH (23:26)
[2022-01-31] MEDS: AZELASTINE HCL 0.1% NASAL 200 SPRAYS/27,400 MCG BTL SCH (23:27)
[2022-01-31] MEDS: METOCLOPRAMIDE HCL INJ 5 MG/ML 2 ML VIAL IV PRN (23:30)
[2022-01-31] MEDS: LACTATED RINGER'S 1,000 ML IV SCH (23:33)
[2022-02-01] MEDS ORDERED: MoRPHine SULFATE 4 MG/ML 1 ML CARP\\VIAL IV STA (00:18)
--- NOTE | 2022-02-01 02:45 | Consultation Report ---
DATE OF CONSULTATION: 02/01/2022. CHIEF COMPLAINT: Neck pain right sided radiating to the left upper extremity and weakness of left upper extremity. HISTORY OF PRESENT ILLNESS: A 66-year-old male with past medical history significant for hyperlipidemia, nonallergic rhinitis, hypertension, morbid obesity, history of migraine, abnormal coagulation profile, history of lymphadenopathy, tobacco abuse, occupational exposure to chemicals, presents with ongoing neck pain radiating to left hand for the last couple of weeks, getting worse, and also feelings of weakness in the hand, admitted by orthopedics The patient is currently resting comfortably, complains of pain in the neck. Denies any headache, no dizziness, no blurred visions, no earache, no runny nose, no sore throat. No cough. No difficulty swallowing. No chest pain, no shortness of breath, no nausea, no abdominal pain. Normal bowel and bladder movements. He is ambulating okay. ALLERGIES: MOMETASONE FUROATE, OXYCODONE. PAST MEDICAL HISTORY: As mentioned above. PAST SURGICAL HISTORY: Colonoscopy, EGDs, injection of the cervical and thoracic spine, lumbar disk excision, tonsillectomy, adenoidectomy, right heart catheterization. MEDICATIONS: The patient is on allopurinol 100 mg p.o. a.m., amlodipine 5 mg p.o. a.m., aspirin 81 mg p.o. 3 times a week, azelastine 2 sprays intranasal q.p.m., Soma 350 mg p.o. q.i.d. p.r.n., Carola 180 mg p.o. daily p.r.n., Lasix 20 mg p.o. 3 times a week, hydrochlorothiazide 25 mg p.o. a.m., hydrocodone/acetaminophen 1 tablet p.o. daily p.r.n., Dilaudid 2 mg p.o. q. 4-6 hours p.r.n., losartan 100 mg p.o. a.m., omeprazole 20 mg p.o. p.m., potassium citrate 10 mEq p.o. b.i.d., Flomax 0.4 mg p.o. a.m. FAMILY HISTORY: Significant for mother had bee sting allergies, heart disorder, hypertension; father had lung cancer, migraine. SOCIAL HISTORY: . Former smoker, quit in 1982, smoked 2 packs a day for 10 years. Alcohol occasional. No drug use. REVIEW OF SYSTEMS: As per HPI. Rest of review of systems is negative. PHYSICAL EXAMINATION: GENERAL: The patient is morbidly obese, not in acute distress. VITAL SIGNS: Temperature 36.5, pulse 63, respiratory rate 18, blood pressure 138/59, oxygen 95% on room air. HEENT: Pupils equal, round and reactive to light. Oral mucosa moist. Extraocular muscles intact. No facial droop. NECK: No neck masses seen. CARDIOVASCULAR: S1 and S2 heard. Regular rate and rhythm. No murmur, no gallop. RESPIRATORY SYSTEM: Normal AP diameter. No accessory muscle use. No wheezing, no crackles. ABDOMEN: Soft, bowel sounds present, nontender, no distention. CENTRAL NERVOUS SYSTEM: Alert and awake. Extraocular muscles intact. No facial droop. Obeys simple commands. Moves extremities. EXTREMITIES: Left extremity weakness present. No edema, no erythema seen. LABORATORY DATA: WBC 8.2, hemoglobin 14.3, hematocrit 42, platelets 288. Sodium 135, potassium 3.5, chloride 102, bicarbonate 22, BUN 19, creatinine 1.1, serum glucose 163, calcium 8.9, total bilirubin 0.5, AST 16, ALT 17, alkaline phosphatase 67. SARS-CoV-2 RNA negative. IMAGING DATA: Cervical spine MRI shows multilevel degenerative changes. There is mild canal stenosis and moderate bilateral neuroforaminal stenosis. ASSESSMENT AND PLAN: This is a 66-year-old male who presents with severe neck pain. 1. Severe neck pain and radiating to the left upper extremity. Some weakness in the left upper extremity.MRI findings as above. Pain control as per orthopedics. Any procedure as per orthopedics. Will get a preoperative EKG and chest x-ray. Labs are okay. IF ekg and chest x-ray is okay the patient should be at acceptable risk to proceed with any procedure planned. 2. History of hypertension: Continue amlodipine,hctz and losartan. Will monitor the blood pressure. 3. History of benign prostatic hypertrophy: Continue Flomax. Will monitor for any retention.. 4. History of diastolic congestive heart failure: Currently on Lasix 20 mg p.o. 3 times a week. Recently cardiology increased to 5 times a week, but the patient seems to be taking 3 times a week. Monitor for any volume overload. 5. History of dyslipidemia: Poor tolerance to statins. 6. Chronic pain: Continue home pain medications. 7. Gastroesophageal reflux disease: On omeprazole. 8. History of abnormal coagulation profile: Follows with hem/onc. Receives 2 units of fresh frozen plasma before any procedures. 9. Deep venous thrombosis prophylaxis. Disposition as per orthopedics. Job ID: [id number] MTDD
[2022-02-01] MEDS: HYDROmorphone INJ 1 MG/ML SYRINGE IV PRN ×2 (04:24→07:36)
[2022-02-01] MEDS: HYDROcodone/ACETAMINOPHEN 10/325 TAB PO PRN ×2 (05:58→18:51)
[2022-02-01] MEDS: ONDANSETRON INJ 2 MG/ML 2 ML VIAL IV PRN ×2 (06:50→16:13)
[2022-02-01] MEDS: METOCLOPRAMIDE HCL INJ 5 MG/ML 2 ML VIAL IV PRN (07:35)
--- NOTE | 2022-02-01 08:09 | XRay Report ---
SINGLE VIEW CHEST CLINICAL HISTORY: Preoperative examination. Cervical radiculopathy. FINDINGS: An AP, portable, upright chest radiograph is compared to study dated 09/09/2020 and correla adelaida with chest CT dated 07/29/2016. The examination is degraded by portable technique and apical lord otic positioning. The heart is top normal for projection. The lungs and pleural spaces are clear. No pneumothorax is seen. The bony thorax is grossly intact. IMPRESSION: No active disease in the chest. ACT 112: Negative or not required by law. Electronically signed by: Coleman Wayne M.D. 02/01/2022 8:07 AM
[2022-02-01] MEDS: POTASSIUM CITRATE 10 MEQ TAB PO SCH ×2 (09:20→20:50)
[2022-02-01] MEDS: allopurinoL 100 MG TAB PO SCH (09:20)
[2022-02-01] MEDS: amLODIPine BESYLATE 5 MG TAB PO SCH (09:20)
[2022-02-01] MEDS: hydroCHLOROthiazide 25 MG TAB PO SCH (09:20)
[2022-02-01] MEDS: TAMSULOSIN HCL 0.4 MG CAP PO SCH (09:21)
[2022-02-01] MEDS: MoRPHine SULFATE 10 MG/ML CARP/VIAL IV PRN ×3 (11:07→21:00)
--- NOTE | 2022-02-01 11:22 | Electrocardiogram Report ---
Test Reason : Blood Pressure : / mmHG Vent. Rate : 081 BPM Atrial Rate : 069 BPM P-R Int : 174 ms QRS Dur : 098 ms QT Int : 388 ms P-R-T Axes : 066 066 050 degrees QTc Int : 450 ms Sinus rhythm with frequent and consecutive PVCs Otherwise normal ECG Confirmed by Boone Velazquez ([id number]) on 02/01/2022 11:22:09 AM Referred By: REFERRED SELF Confirmed By:Raymond Velazquez
--- NOTE | 2022-02-01 11:53 | CT Scan Report ---
CT OF THE CERVICAL SPINE WITHOUT CONTRAST CLINICAL HISTORY: Left arm pain. COMPARISON STUDY: CT of the cervical spine July 08, 2021. MRI of the cervical spine January 31, 2022. TECHNIQUE: Helical axial images of the cervical spine were obtained without IV contrast. Sagittal a nd coronal reconstructions were viewed. Automated exposure control was utilized for the study. A do se lowering technique was utilized adhering to the principles of ALARA. FINDINGS: Vertebral body heights are maintained. No cervical spine fracture is noted. No suspicious o sseous lesion. Severe multilevel facet arthrosis is noted. There is moderate multilevel disc space na rrowing and osteophytosis. Central canal and neural foramen are better depicted on the MRI of the cer vical spine performed on January 31, 2022. There is no prevertebral edema. Paravertebral soft tissues are unremarkable. IMPRESSION: 1. No acute cervical spine fracture or subluxation. 2. Moderate multilevel degenerative changes within the cervical spine. Central canal and neural lily en but are depicted on MRI of January 31, 2022. ACT 112: Negative or not required by law. Electronically signed by: Prashanth Reeder M.D. 02/01/2022 11:51 AM
[2022-02-01] MEDS: LACTATED RINGER'S 1,000 ML IV SCH (12:07)
--- NOTE | 2022-02-01 15:56 | History & Physical Report ---
Date of Service February 01, 2022 Assessment & Plan (1) Cervical radiculopathy: Plan: Patient did undergo an MRI and CAT scan of the cervical spine to help us sort his pathology. Scans do demonstrate evidence of multilevel cervical spondylosis and facet arthropathy. He did not appreciate any severe neuroforaminal disease particularly at the C5-6 C6 levels which would be the areas of interest in light of his presentation. There is some spurring in the C6-7 foramen on the left uncovertebral nature. This may be contributing to some of his symptoms. This point he is improving with IV morphine I will initiate a course of steroids request that interventional pain management see him tomorrow for further guidance regarding pain medications versus an urgent cervical epidural injection. I am hesitant to recommend any surgery at this time based on his imaging. I would also consider an outpatient EMG nerve conduction study in the next week or so. Admission and Anticipated Discharge Date Admission Date: January 31, 2022 History of Present Illness Chief Complaint: Severe left arm pain with numbness and tingling into the fingers. Primary Care Provider: Diamante Parisi, This is a 66-year-old male that presents with worsening left arm pain. He was scheduled for a cervical epidural injection but that this with [place] his symptoms were too severe and sent him to the emergency room. He describes pain involving the left side of the neck into his left tricep extending down his arm into his ring and long finger. Any cervical range of motion exacerbates the symptoms. He is status post left shoulder surgery approximately 6 weeks ago and is still struggling with quite a bit of left shoulder pain as well. He has no right upper extremity symptoms. He denies any trauma fall or event. Allergies Allergy/AdvReac Type Severity Reaction Status Date / Time mometasone furoate Allergy Intermediate NOSE Verified 01/31/22 17:25 IRRITATION,"SCABBED UP" oxycodone AdvReac Severe violently Verified 01/31/22 17:25 "sick" Home Medications Medication Instructions Recorded Confirmed Type aspirin 81 mg tablet,delayed 81 mg PO 3XWK 10/22/19 01/31/22 History release carisoprodol 350 mg tablet (Soma) 350 mg PO QID PRN 10/22/19 01/31/22 History fexofenadine 180 mg tablet 180 mg PO DAILY PRN 10/22/19 01/31/22 History (Carola Allergy) hydrochlorothiazide 25 mg tablet 25 mg PO QAM 10/22/19 01/31/22 History omeprazole magnesium 20 mg 20 mg PO QPM 10/22/19 01/31/22 History tablet,delayed release (Prilosec OTC) amlodipine 5 mg tablet 5 mg PO QAM 10/24/19 01/31/22 History furosemide 20 mg tablet (Lasix) 20 mg PO 3XWK 09/07/20 01/31/22 History losartan 100 mg tablet 100 mg PO QPM 09/07/20 01/31/22 History tamsulosin 0.4 mg capsule (Flomax) 0.4 mg PO QAM 07/01/21 01/31/22 History allopurinol 100 mg tablet 100 mg PO QAM 12/01/21 01/31/22 History azelastine 137 mcg (0.1 %) nasal 2 spray INTRANASAL QPM 12/01/21 01/31/22 History spray aerosol potassium citrate 10 mEq (1,080 10 meq PO BID 12/01/21 01/31/22 History mg) tablet,extended release hydromorphone 2 mg tablet 2 mg PO .Q4h-6h PRN #30 tab MDD 6 12/17/21 01/31/22 Rx (Dilaudid) hydrocodone 10 mg-acetaminophen 1 tab PO DAILY PRN 01/31/22 01/31/22 History 325 mg tablet Past Med/Surg History Medical History Abnormal coagulation profile "Prolonged PT and PTT, all factor levels are normal, defect corrects with 50:50 mixing study, all invasive procedures should correct with 2 units FFP, test PT & act PTT after infusion to confirm correction. " Chronic back pain Chronic neck pain Claustrophobia Degenerative disc disease Diastolic dysfunction With prior episodes of acute diastolic heart failure/volume overload occurring in the setting of uncontrolled hypertension as well as high-dose gabapentin and amlodipine therapies. Dyspnea with exertion (started Jul 2020) -- following with [facility] cardiology. Negative DSE 08/2020. GERD (gastroesophageal reflux disease) Gout History of anesthesia reaction Admitted overnight following colonoscopy 06/2021 [facility] syncopal episodes -Seen by PCP 07/20/21 for hospital follow up- no issues on additional work up in hospital per PCP note- vitals stable during admssion History of cervical fracture ~2000 with hairline fracture at ~C3. no surgery at that time. Full ROM History of kidney stones [place] (hard of hearing) Hyperlipidemia Hypertension Leg edema monitoring with cardiology Osteoarthritis Surgical History H/O arthroscopy of shoulder Right History of arthroscopy of right knee History of cardiac cath APPROX 10 YEARS AGO FOR CHEST PAIN WITH STRONG FHX OF CAD - [place] [facility]ILIPPE - NO STENTS History of colonoscopy History of cystoscopy W/ STONE EXTRACTION History of lumbar discectomy History of tonsillectomy Nausea and vomiting after administration of anesthetic agent S/P epidural steroid injection Lumbar and cervical Family History Other No family history of adverse response to anesthesia Social History Smoking Status: Never smoker Tobacco Type: Cigarettes Second Hand Exposure: No; Do You Dip or Chew Tobacco: No; Hx Alcohol Use: Yes Alcohol type: hard liquor Hx Substance Use: No Preferred Language: Yemeni Communication Ability: Effective Manager [employer] Required: No Beliefs That Will Affect Care: None Current Living Situation: Spouse Feels Safe at Home: Yes Safety Concerns: Feels Safe At This Time Assistive Devices: Cane and Walker Physical Exam Physical Exam: On exam he is in obvious distress. I do appreciate a positive Spurling's to the left negative to the right. He has excellent strength testing to bilateral grasp but does have breakaway weakness to testing left upper extremity which could also be related to his shoulder pain postoperatively. Results & Data Results & Data ([facility]) Vital Signs (Past 12 Hours) Vital Signs Temp Pulse Resp BP Pulse Ox 02/01/22 14:54 36.7 C 80 16 148/71 H 95 02/01/22 07:32 36.4 C L 68 16 121/63 93 Code Status & VTE Plan VTE Prophylaxis Plan VTE Prophylaxis will be ordered: Yes
[2022-02-01] MEDS: PANTOprazole 40 MG TAB PO SCH (20:50)
[2022-02-01] MEDS: LOSARTAN POTASSIUM 50 MG TAB PO SCH (20:50)
[2022-02-01] MEDS: DOCUSATE SODIUM/SENNA 50/8.6MG TAB PO SCH (20:53)
[2022-02-01] MEDS: AZELASTINE HCL 0.1% NASAL 200 SPRAYS/27,400 MCG BTL SCH (20:54)
[2022-02-01] MEDS: dexAMETHasone 8 MG in SYRINGE 0 ML IV SCH (21:02)
[2022-02-02] MEDS: MoRPHine SULFATE 10 MG/ML CARP/VIAL IV PRN ×4 (02:51→21:00)
[2022-02-02] MEDS: dexAMETHasone 8 MG in SYRINGE 0 ML IV SCH ×4 (06:09→21:00)
[2022-02-02] MEDS ORDERED: ASPIRIN 81 MG ECTAB PO SCH (09:00)
[2022-02-02] MEDS: amLODIPine BESYLATE 5 MG TAB PO SCH (09:35)
[2022-02-02] MEDS: hydroCHLOROthiazide 25 MG TAB PO SCH (09:35)
--- NOTE | 2022-02-02 09:35 | Pain Management Consultation ---
Date of Consultation February 02, 2022 Assessment & Plan (1) Cervical radiculopathy: (2) Abnormal coagulation profile: 1. Patient presenting with cervical radiculopathy with reported inability to control pain in the outpatient setting with symptom onset status post a left shoulder surgery in November. Patient appears to have a true radicular pattern pain but only moderate bilateral neuroforaminal stenosis per MRI. Patient deemed a nonsurgical candidate per Dr. Ochoa. We discussed his candidacy to pursue cervical RADHA with C7-T1 interlaminar approach. Patient has been n.p.o. He does have history of abnormal coags-we will request PT and INR stat to determine his current coag status. Further recommendation will made pending review. Case discussed with Dr. Jefferson who will evaluate the patient and consider performing in the OR later today. 2. Patient will continue with IV dexamethasone 3. We did briefly discuss initiating a trial of pregabalin but deferred due to his past history of CHF as a byproduct of gabapentin utilization per his report 4. Consider completing EMG of the upper extremity in the outpatient setting 5. Patient will continue with his current opiate regimen without change in recommendation History of Present Illness Reason for Consultation: Intractable left upper extremity radicular pain Requesting Physician: Isai Ochoa DO Attending Physician: Isai Ochoa DO History of Present Illness Mr. Louis is a 66-year-old white male who was admitted due to intractable left-sided neck and upper extremity radicular pattern pain. The patient reports a history of chronic cervical radiculopathy which has always been right-sided and difficulties with chronic bilateral shoulder pain which have required surgical interventions. The patient most recent underwent a left-sided rotator cuff repair with Dr. Carrero in November. The patient has had ongoing difficulties of left-sided shoulder and upper extremity radicular pattern pain which is traveling to the third and fourth digits. His pain has been severe and progressive which led to emergent evaluation and this admission. There was a potential plan for cervical epidural with Dr. Cloud in the outpatient setting but he deferred and referred the patient to Dr. Ochoa. Dr. Ochoa does not feel that surgical intervention is indicated at this time. The patient has undergone prior epidural steroid injection with Dr. Cloud most recently approximately 2 years ago for treatment of right upper extremity radicular pain which did respond to the epidural steroid injections. He is also undergone multiple rounds of trigger point injections in the past predominately involving the right axial neck and trapezius region. The patient's current pain is in the left trapezius, shoulder and outer aspect of the biceps/triceps region traveling in a predominant C7 distribution to the third and fourth digits. He describes the pain as sharp, burning and shooting in characteristic with electrical shocklike sensations. He does have a constant deep aching sensation. He reports that he continues with poor range of motion of the left shoulder in the postsurgical setting but does continue to participate in physical therapy which is limited. He has chronic history of utilization of opiates most recently utilizing hydrocodone 10/325 mg and hydromorphone. He reported hydromorphone provided no relief of symptoms.Patient further reports difficulties tolerating gabapentin in the past due to peripheral edema and possible heart failure. Patient has refrained from utilizing any ant iconvulsants since this episode occurred a few years ago. He reports some generalized weakness of the left upper extremity due to pain and discomfort. He denies any significant right-sided pain at this time. He has minimal axial neck pain. He denies cervicogenic headache. Patient has no further concerns or complaints. Plan of care discussed with Dr. Taryn Jefferson. Pain Assessment Full Body Front + Back: 1. Left upper extremity radicular pain in C7 distribution 2. Left trapezius/shoulder region pain Pain scale - at its best (0-10): 0 Pain scale - at its worst (0-10): 6 Allergies Allergy/AdvReac Type Severity Reaction Status Date / Time mometasone furoate Allergy Intermediate NOSE Verified 01/31/22 17:25 IRRITATION,"SCABBED UP" oxycodone AdvReac Severe violently Verified 01/31/22 17:25 "sick" Home Medications Medication Instructions Recorded Confirmed Type aspirin 81 mg tablet,delayed 81 mg PO 3XWK 10/22/19 01/31/22 History release carisoprodol 350 mg tablet (Soma) 350 mg PO QID PRN 10/22/19 01/31/22 History fexofenadine 180 mg tablet 180 mg PO DAILY PRN 10/22/19 01/31/22 History (Carola Allergy) hydrochlorothiazide 25 mg tablet 25 mg PO QAM 10/22/19 01/31/22 History omeprazole magnesium 20 mg 20 mg PO QPM 10/22/19 01/31/22 History tablet,delayed release (Prilosec OTC) amlodipine 5 mg tablet 5 mg PO QAM 10/24/19 01/31/22 History furosemide 20 mg tablet (Lasix) 20 mg PO 3XWK 09/07/20 01/31/22 History losartan 100 mg tablet 100 mg PO QPM 09/07/20 01/31/22 History tamsulosin 0.4 mg capsule (Flomax) 0.4 mg PO QAM 07/01/21 01/31/22 History allopurinol 100 mg tablet 100 mg PO QAM 12/01/21 01/31/22 History azelastine 137 mcg (0.1 %) nasal 2 spray INTRANASAL QPM 12/01/21 01/31/22 History spray aerosol potassium citrate 10 mEq (1,080 10 meq PO BID 12/01/21 01/31/22 History mg) tablet,extended release hydromorphone 2 mg tablet 2 mg PO .Q4h-6h PRN #30 tab MDD 6 12/17/21 01/31/22 Rx (Dilaudid) hydrocodone 10 mg-acetaminophen 1 tab PO DAILY PRN 01/31/22 01/31/22 History 325 mg tablet Pain History Pain Intensity Pain scale - at its best (0-10): 0 Pain scale - at its worst (0-10): 6 Patient History Medical History (Updated 02/02/22 @ 09:38 by Crissy Cerda PA-C) Abnormal coagulation profile "Prolonged PT and PTT, all factor levels are normal, defect corrects with 50:50 mixing study, all invasive procedures should correct with 2 units FFP, test PT & act PTT after infusion to confirm correction. " Chronic back pain Chronic neck pain Claustrophobia Degenerative disc disease Diastolic dysfunction With prior episodes of acute diastolic heart failure/volume overload occurring in the setting of uncontrolled hypertension as well as high-dose gabapentin and amlodipine therapies. Dyspnea with exertion (started Jul 2020) -- following with [facility] cardiology. Knena galan DSE 08/2020. GERD (gastroesophageal reflux disease) Gout History of anesthesia reaction Admitted overnight following colonoscopy 06/2021 [facility] syncopal episodes -Seen by PCP 07/20/21 for hospital follow up- no issues on additional work up in hospital per PCP note- vitals stable during admssion History of cervical fracture ~1999 with hairline fracture at ~C3. no surgery at that time. Full ROM History of kidney stones [place] (hard of hearing) Hyperlipidemia Hypertension Leg edema monitoring with cardiology Osteoarthritis Surgical History H/O arthroscopy of shoulder Right History of arthroscopy of right knee History of cardiac cath APPROX 10 YEARS AGO FOR CHEST PAIN WITH STRONG [facility] ST[facility] History of colonoscopy History of cystoscopy W/ STONE EXTRACTION History of lumbar discectomy History of tonsillectomy Nausea and vomiting after administration of anesthetic agent S/P epidural steroid injection Lumbar and cervical Family History Other No family history of adverse response to anesthesia Social History Smoking Status: Never smoker Tobacco Type: Cigarettes Second Hand Exposure: No; Do You Dip or Chew Tobacco: No; Hx Alcohol Use: Yes Alcohol type: hard liquor Hx Substance Use: No Preferred Language: Chinese Communication Ability: Effective Manager Statistics Required: No Beliefs That Will Affect Care: None Current Living Situation: Spouse Feels Safe at Home: Yes Safety Concerns: Feels Safe At This Time Assistive Devices: Cane and Walker Physical Exam Physical Exam: General: Patient sitting quietly in exam room in no acute distress. Speech and thought process appropriate. Mood and affect appropriate. Cognition intact. Head: Normocephalic and atraumatic. ENT: No evidence of nasal or oral mucosal lesions. Mucous membranes are moist. Eyes: Pupils equal round reactive to light. Neck: Supple without adenopathy. Limited range of motion with left lateral rotation and ear to shoulder maneuvering. Spurling's maneuver was positive on the left and negative on the right. Patient is nontender over the midline. No paravertebral or focal facet joint tenderness. Moderately tender in the left mid trapezius. No appreciable spasm or myoneural trigger point. Left shoulder: Patient is tender over the deltoid and posterior rotator cuff insertion to direct palpation. Limited range of motion all planes to approximately 0 degrees with flexion and approximately 70 degrees with abduction. Tender throughout his limited range of motion. Upper extremity: Handgrip strength 5/5 and equal as well as opposition. Biceps and triceps maneuvering 5/5 with notable discomfort on the left. Patient is tender with some dysesthesia on the left in a C7 distribution. Chest: Nontender to palpation of the costosternal junction. Abdomen: Soft and nondistended. No organomegaly. Bowel sounds active. Neurologic: Cranial nerves grossly intact. Ambulatory function not witnessed. Results ([facility]) Diagnostic Review MRI Findings: [facility] LLUVIA Gutierrez [phone] Magnetic Resonance Report Patient:CRISSY LOUIS Admit Date:01/31/22 MR#:[id number] Address1:[address] [place] [address] Acct ID:[id number] Address2: Date:1955 [facility] Zip:[place] [id number] Age:66 Location:ED Sex:M Room/Bed: Att Phy: Diagnosis:NECK PAIN Latisha Phy:Diamante Parisi DO Service Date:01/31/22 [facility] Phy: Interpreting Phy:Cecilio Alonso MDAit Phy: Ordering Phy:Tamika Alas PA-C cc: ~ CLINICAL HISTORY: severe mid-left neck pain down L arm TECHNIQUE: MRI of the cervical spine is performed utilizing various T1 and T2 sequences in the axial and sagittal planes. IV contrast was not administered for this examination. Comparison: Comparison is made to MRI cervical spine 03/05/2020 FINDINGS: The alignment is anatomical. Disks are normal in height and signal. C2-C3: Unremarkable. C3-C4: Unremarkable. C4-C5: Small posterior disc bulge is seen. There is mild canal and bilateral neuroforaminal stenosis. C5-C6: Small posterior disc bulge is seen. There is mild canal and moderate bilateral neuroforaminal stenosis. C6-C7: Moderate bilateral neural foraminal stenosis is seen. C7-T1: Moderate bilateral neuroforaminal stenosis. The spinal ligaments are intact, without evidence of disruption or abnormal signal intensity. The spinal cord is normal in signal intensity and there is no evidence of cord contusion. There is no evidence of an extradural, intradural, extramedullary or intramedullary lesion. Visualized soft tissues are normal. Visualized brain parenchyma is normal. IMPRESSION: Multilevel degenerative changes. There is up to mild canal stenosis and moderate bilateral neural foraminal stenosis. ACT 112: Negative or not required by law. Electronically signed by: Cecilio Alonso M.D. 01/31/2022 7:46 PM Dictated:01/31/221935 Transcribed: 01/31/221935 Previous Records Review Previous Records: personally reviewed by me
[2022-02-02] MEDS: FUROSEMIDE 20 MG TAB PO SCH (09:36)
[2022-02-02] MEDS: TAMSULOSIN HCL 0.4 MG CAP PO SCH (09:36)
[2022-02-02] MEDS: POTASSIUM CITRATE 10 MEQ TAB PO SCH ×2 (09:36→19:47)
[2022-02-02] MEDS: allopurinoL 100 MG TAB PO SCH (09:36)
--- NOTE | 2022-02-02 10:29 | Orthopedic Progress Note ---
Date of Service February 02, 2022 Assessment & Plan (1) Cervical radiculopathy: Plan: This time he is awaiting a cervical epidural injection. We will assess his response afterwards hopefully discharge home tomorrow if he is improving. Admission and Anticipated Discharge Date Admission Date: January 31, 2022 Subjective Patient complaining of left arm pain and some tingling left fingers. It is somewhat improved with his pain medicine. Physical Exam Physical Exam: On exam he does have pain over right range of motion left shoulder. Spurling sign seems to have improved. His positive Tinel's over the left elbow. Results & Data ([facility]) Vital Signs (Past 12 Hours) Vital Signs Temp Pulse Resp BP Pulse Ox 02/02/22 09:33 69 148/76 H 02/02/22 07:24 36.7 C 67 18 144/78 H 96
[2022-02-02 10:39] LABS: INR 1.3 (0.9-1.1); Prothrombin Time 14.1 Seconds (9.0-12.0)
[2022-02-02] MEDS ORDERED: SODIUM CHLORIDE 0.9% 250 ML IV PRN (11:04)
[2022-02-02] MEDS ORDERED: bisacodyL 10 MG SUPP PR PRN (12:08)
[2022-02-02] MEDS ORDERED: SOD PHOSPHATE/SOD BIPHOSPHATE ENEMA 132 ML BTL PR PRN (12:09)
--- NOTE | 2022-02-02 13:21 | Anesthesiology Consultation ---
Date of Service February 02, 2022 Assessment & Plan (1) Encounter for pre-operative examination: Chart Review Chart Review: Acceptable Risk for Surgery getting FFP preop History Surgery Operation Date: 02/02/22 10:10 Proposed Procedures p Cervical Epidural Steroid Injection - Taryn Jefferson DO Height/Weight Height: 6 ft 6 in Weight: 176.9 kg Allergies Allergy/AdvReac Type Severity Reaction Status Date / Time mometasone furoate Allergy Intermediate NOSE Verified 01/31/22 17:25 IRRITATION,"SCABBED UP" oxycodone AdvReac Severe violently Verified 01/31/22 17:25 "sick" Medications Home Medications Medication Instructions Recorded Confirmed Last Taken aspirin 81 mg tablet,delayed 81 mg PO 3XWK 10/22/19 01/31/22 01/31/22 release carisoprodol 350 mg tablet (Soma) 350 mg PO QID PRN 10/22/19 01/31/22 01/30/22 fexofenadine 180 mg tablet 180 mg PO DAILY PRN 10/22/19 01/31/22 12/02/21 (Carola Allergy) hydrochlorothiazide 25 mg tablet 25 mg PO QAM 10/22/19 01/31/22 01/31/22 omeprazole magnesium 20 mg 20 mg PO QPM 10/22/19 01/31/22 01/30/22 tablet,delayed release (Prilosec OTC) amlodipine 5 mg tablet 5 mg PO QAM 10/24/19 01/31/22 01/31/22 furosemide 20 mg tablet (Lasix) 20 mg PO 3XWK 09/07/20 01/31/22 01/31/22 losartan 100 mg tablet 100 mg PO QPM 09/07/20 01/31/22 01/30/22 tamsulosin 0.4 mg capsule (Flomax) 0.4 mg PO QAM 07/01/21 01/31/22 01/31/22 allopurinol 100 mg tablet 100 mg PO QAM 12/01/21 01/31/22 01/31/22 azelastine 137 mcg (0.1 %) nasal 2 spray INTRANASAL QPM 12/01/21 01/31/22 01/30/22 spray aerosol potassium citrate 10 mEq (1,080 10 meq PO BID 12/01/21 01/31/22 01/31/22 08:00 mg) tablet,extended release hydromorphone 2 mg tablet 2 mg PO .Q4h-6h PRN #30 tab MDD 6 12/17/21 01/31/22 Unknown (Dilaudid) hydrocodone 10 mg-acetaminophen 1 tab PO DAILY PRN 01/31/22 01/31/22 Unknown 325 mg tablet Active Medications Generic Name Dose Route Start Last Admin Trade Name Freq PRN Reason Stop Dose Admin Hydrocodone Bitart/Acetaminophen 1 tab 01/31/22 20:33 02/01/22 18:51 Hydrocodone/Acetaminophen 10/325 Tab PO 02/14/22 20:32 1 tab Q6 PRN Administration Pain Allopurinol 100 mg 02/01/22 09:00 02/02/22 09:36 Allopurinol 100 Mg Tab PO 03/03/22 08:59 100 mg QAM KEY Administration Amlodipine Besylate 5 mg 02/01/22 09:00 02/02/22 09:35 Amlodipine Besylate 5 Mg Tab PO 03/03/22 08:59 5 mg QAM KEY Administration Azelastine HCl 2 sprays 01/31/22 22:15 02/01/22 20:54 Azelastine Hcl 0.1% Nasal 200 Sprays/27,400 Mcg Btl NA 03/02/22 22:14 2 sprays QPM KEY Administration Furosemide 20 mg 02/02/22 09:00 02/02/22 09:36 Furosemide 20 Mg Tab PO 03/04/22 08:59 Not Given [id number] KEY Hydrochlorothiazide 25 mg 02/01/22 09:00 02/02/22 09:35 Hydrochlorothiazide 25 Mg Tab PO 03/03/22 08:59 25 mg QAM KEY Administration Lactated Ringer's 1,000 mls @ 75 mls/hr 01/31/22 22:15 02/01/22 14:59 Lr IV 03/02/22 22:14 Infused .[id number] KEY Infusion Dexamethasone 8 mg/ Syringe 2 mls @ 1 mls/min 02/01/22 22:00 02/02/22 06:09 IV 03/03/22 21:59 1 mls/min Q8 KEY Administration Losartan Potassium 100 mg 01/31/22 22:15 02/01/22 20:50 Losartan Potassium 50 Mg Tab PO 03/02/22 22:14 100 mg QPM KEY Administration Metoclopramide HCl 10 mg 01/31/22 22:15 02/01/22 07:35 Metoclopramide Hcl Inj 5 Mg/Ml 2 Ml Vial IV 03/02/22 22:14 10 mg Q6H PRN Administration Nausea &/or Vomiting Morphine Sulfate 6 mg 02/01/22 10:34 02/02/22 07:26 Morphine Sulfate 10 Mg/Ml Carp/Vial IV 02/15/22 10:33 6 mg Q4H PRN Administration Pain Ondansetron HCl 4 mg 01/31/22 22:15 02/01/22 16:13 Ondansetron Inj 2 Mg/Ml 2 Ml Vial IV 03/02/22 22:14 4 mg Q6H PRN Administration Nausea &/or Vomiting Pantoprazole Sodium 40 mg 01/31/22 22:15 02/01/22 20:50 Pantoprazole 40 Mg Tab PO 03/02/22 22:14 40 mg QPM KEY Administration Potassium Citrate 10 meq 01/31/22 22:15 02/02/22 09:36 Potassium Citrate 10 Meq Tab PO 03/02/22 22:14 10 meq BID KEY Administration Senna/Docusate Sodium 2 tab 01/31/22 22:15 02/01/22 20:53 Docusate Sodium/Senna 50/8.6mg Tab PO 03/02/22 22:14 2 tab HS KEY Administration Tamsulosin HCl 0.4 mg 02/01/22 09:00 02/02/22 09:36 Tamsulosin Hcl 0.4 Mg Cap PO 03/03/22 08:59 0.4 mg QAM KEY Administration NPO Date Last Intake of Fluids: 02/01/22 Time Last Intake of Fluids: 00:00 Date Last Intake of Solids: 02/01/22 Time Last Intake of Solids: 00:00 Past Medical History Medical History Abnormal coagulation profile "Prolonged PT and PTT, all factor levels are normal, defect corrects with 50:50 mixing study, all invasive procedures should correct with 2 units FFP, test PT & act PTT after infusion to confirm correction. " Chronic back pain Chronic neck pain Claustrophobia Degenerative disc disease Diastolic dysfunction With prior episodes of acute diastolic heart failure/volume overload occurring in the setting of uncontrolled hypertension as well as high-dose gabapentin and amlodipine therapies. Dyspnea with exertion (started Jul 2020) -- following with [facility] cardiology. Negative DSE 08/2020. GERD (gastroesophageal reflux disease) Gout History of anesthesia reaction Admitted overnight following colonoscopy 06/2021 [facility] syncopal episodes -Seen by PCP 07/20/21 for hospital follow up- no issues on additional work up in hospital per PCP note- vitals stable during admssion History of cervical fracture ~2000 with hairline fracture at ~C3. no surgery at that time. Full ROM History of kidney stones [place] (hard of hearing) Hyperlipidemia Hypertension Leg edema monitoring with cardiology Osteoarthritis Past Family History Family History Other No family history of adverse response to anesthesia Past Surgical History Surgical History H/O arthroscopy of shoulder Right History of arthroscopy of right knee History of cardiac cath APPROX 10 YEARS AGO FOR CHEST PAIN WITH STRONG FHX OF CAD - [facility] - NO STENTS History of colonoscopy History of cystoscopy W/ STONE EXTRACTION History of lumbar discectomy History of tonsillectomy Nausea and vomiting after administration of anesthetic agent S/P epidural steroid injection Lumbar and cervical Social History Smoking Status: Never smoker tobacco type: cigarettes and smokeless tobacco Do You Dip or Chew Tobacco: No Hx Alcohol Use: Yes Alcohol type: hard liquor alcohol intake frequency: holidays/special occasions only Hx Substance Use: No substance use type: does not use Physical Exam Vital Signs Last Vital Signs Temp 37.1 C 02/02/22 12:52 Pulse 104 H 02/02/22 12:52 Resp 18 02/02/22 12:52 BP 153/75 H 02/02/22 12:52 Pulse Ox 92 02/02/22 12:52 Testing Laboratory Results 01/31/22 17:32 01/31/22 17:32 PT 14.1 Seconds (9.0-12.0) H 02/02/22 09:54 INR 1.3 (0.9-1.1) H 02/02/22 09:54 Electrocardiogram Date: 02/01/22 Findings: + NSR @ (81) Echocardiogram Date: 07/09/21 EF: 55-60% LV Function: normal Other Findings: + diastolic dysfunction Valvular Disease: + no significant valvular disease
[2022-02-02] MEDS ORDERED: fentaNYL citrate 100 MCG/2 ML VIAL ONE (13:24)
[2022-02-02] MEDS ORDERED: MIDAZOLAM HCL 1 MG/ML 2ML VIAL ONE (13:24)
[2022-02-02] MEDS ORDERED: ONDANSETRON INJ 2 MG/ML 2 ML VIAL IV PRN (13:37)
[2022-02-02] MEDS ORDERED: HYDROmorphone INJ 1 MG/ML SYRINGE IV PRN (13:37)
[2022-02-02] MEDS ORDERED: ATROPINE SULFATE 0.1 MG/ML 10ML SYR IV PRN (13:37)
--- NOTE | 2022-02-02 13:43 | History & Physical Bridge Note ---
Date of Service February 02, 2022 History & Physical Bridge Note I have examined the patient, reviewed the History & Physical and in the interval since the performance of the History & Physical I have noted the following changes of clinical significance: no changes noted Second unit of FFP currently infusing. Will take pt back to OR for procedure once finished.
[2022-02-02] MEDS ORDERED: methylPREDNISolone acetate 80 MG/ML VIAL INJ SCH (14:29)
--- NOTE | 2022-02-02 14:29 | Operative Report ---
Post Operative Report Pre & Post Diagnosis Operation Date: 02/02/22 10:10 Pre-Op Diagnosis: NECK AND ARM PAIN Post-Op Diagnosis: NECK AND ARM PAIN I identified the patient and participated in the time-out.: Yes Procedure Operation Date: 02/02/22 10:10 Actual Procedures p Cervical Epidural Steroid Injection(Not Applicable) - Taryn Jefferson DO Surgeon Taryn Jefferson, Despatch Clerk none Estimated Blood Loss 0 Findings Consistent with Post-Op Diagnosis Fluids per anes record Specimens none Drains none Anesthesia Type MAC Complications none Disposition Accompanied Patient To Recovery: No Disposition: Recovery Room Description of Procedure CERVICAL EPIDURAL STEROID INJECTION INTERLAMINAR Diagnosis: Cervical radiculitis, Inter-vertebral disc disease Level injected: C7-T1 Anesthesia: local Material forwarded to lab: none Prior to starting, the Patients diagnosis and the procedure were reviewed with the patient in detail. Possible risks, complications and alternative therapies were also reviewed. Patients questions were answered. Informed consent was obtained. Allergies and medication list was reviewed. The patient was brought to the operating room and placed in prone position on the table. Immediately prior to starting the procedure, a ``time out was conducted with the staff and the patient where the Patient was identified, proposed procedure was verified, consent was reviewed and the proper site for the planned procedure was identified. Fluoroscopy was utilized in performing the procedure to assist in placement of the needle, to evaluate the final position on the needle prior to injection and to avoid intravascular injection. Monitors used included intermittent blood pressure with an automated device, continuous pulse oximetry and level of consciousness. The patient was given sedation per anesthetic record. The cervico-thoracic spine area was prepped with Duraprep and Betadine. Sterile drapes were applied. 1% lidocaine 3 ml, was infiltrated in the skin and subcutaneous tissues using a 27 gauge needle. A 20 gauge, 3.5 inch Tuohy needle was then inserted through the anesthetized area and advanced under bi planar fluoroscopy through the ligamentum flavum into the epidural space via midline approach with loss of resistance to saline technique. Upon entering the epidural space the patient did not experience pain or paresthesia. Bevel of the needle was directed in the cephalad direction. 6 inch micro bore tubing was attached to the needle and aspiration via the needle demonstrated no CSF or blood. In a lateral view, 1cc nonionic Isovue contrast was injected via the needle under live fluoroscopy. The contrast was noted to be in the dorsal epidural space. No subarachnoid spread of contrast was noted. Finally, an AP view was then checked and additional 1cc of the contrast was injected under live fluoroscopy. Neither subdural or subarachnoid spread nor intravascular uptake was noted on plain fluoroscopy. No vascular uptake was noted. Next, a solution containing 80 mg of depomedrol then 1ml preservative free normal saline (to flush needle) was injected via the epidural needle gradually. Patient did not experience any pain, paresthesia or discomfort throughout the injection period. Needle was withdrawn. Adequate hemostasis was noted. A sterile Band-Aid was applied at the injection site. Patient was then placed in sitting position. The patient was taken to PACU in stable condition. I attest to the content of the Intraoperative Record and any orders documented therein. Any exceptions are noted below.
[2022-02-02] MEDS ORDERED: LIDOCAINE 1% LOCAL 20 ML VIAL INFIL ONE (14:30)
--- NOTE | 2022-02-02 14:41 | Anesthesiology Progress Note ---
Date of Service February 02, 2022 Anesthesia Post Procedure Vital Signs Vital Signs: Temp Pulse Pulse Pulse Resp BP BP 02/02/22 14:27 36.6 C 92 H 19 02/02/22 13:45 36.9 C 84 18 158/89 H 02/02/22 13:31 37.1 C 98 H 20 122/90 02/02/22 13:30 37.1 C 90 20 146/84 H 02/02/22 13:14 37.1 C 98 H 20 02/02/22 12:52 37.1 C 104 H 18 153/75 H 02/02/22 12:36 36.9 C 102 H 18 144/77 H 02/02/22 09:33 69 02/02/22 07:24 36.7 C 67 18 02/01/22 22:23 36.8 C 71 18 02/01/22 14:54 36.7 C 80 16 148/71 H BP Pulse Ox 02/02/22 14:27 168/88 H 96 02/02/22 13:45 95 02/02/22 13:31 97 02/02/22 13:30 95 02/02/22 13:14 122/90 97 02/02/22 12:52 92 02/02/22 12:36 92 02/02/22 09:33 148/76 H 02/02/22 07:24 144/78 H 96 02/01/22 22:23 144/74 H 93 02/01/22 14:54 95 Pain Intensity Left Neck: Pain Intensity: 9 Left Arm: Pain Intensity: 9 Transfer of Care Handoff Completed per policy Notes Mental Status: alert / awake / arousable Patient Amnestic to Procedure: Yes Nausea / Vomiting: adequately controlled Pain: adequately controlled Airway Patency, RR, SpO2: stable & adequate BP & HR: stable & adequate Hydration State: stable & adequate Anesthetic Complications: no major complications apparent
[2022-02-02] MEDS ORDERED: IOPAMIDOL INJ 61% 15 ML VIAL INJ SCH (14:45)
[2022-02-02] MEDS ORDERED: HYDROcodone/ACETAMINOPHEN 10/325 TAB PO PRN (15:03)
[2022-02-02] MEDS ORDERED: HYDROmorphone HCL 2 MG TAB PO PRN (15:03)
[2022-02-02] MEDS: DOCUSATE SODIUM/SENNA 50/8.6MG TAB PO SCH ×2 (15:49→19:47)
--- NOTE | 2022-02-02 17:48 | Hospitalist Progress Note ---
Date of Service February 02, 2022 Assessment & Plan (1) Cervical radiculopathy: Plan: Patient is a 66 yr male who presents with severe neck pain. Cervical radiculopathy Neck CT:No acute cervical spine fracture or subluxation. Moderate multilevel degenerative changes within the cervical spine. Central canal and neural foramen but are depicted on MRI of January 31, 2022. S/P Cervical Epidural Steroid Injection by Pain control Appreciate orthopedics, pain management Constipation Continue bowel regimen Encouraged to ambulate as able Hypertension: Continue amlodipine,hctz, losartan Monitor BPH Continue Flomax H/O Diastolic congestive heart failure: Monitor volume status Continue home diuretics H/O Dyslipidemia: Poor tolerance to statins GERD On PPI H/O Abnormal coagulation profile: Follows with hem/onc. Receives 2 units of fresh frozen plasma before any procedures Morbid obesity BMI 45 DVT Px: SCDs for now Admission and Anticipated Discharge Date Admission Date: January 31, 2022 Subjective Patient is seen and examined at bedside States having cervical pain Also reports constipation Offers no other complaints Review of Systems Review of Systems: All systems reviewed & are unremarkable except as noted in Subjective Physical Exam Physical Exam: Physical Exam: Vitals signs as noted above General Appearance:Morbidly Obese, no apparent distress Head: normocephalic, Atraumatic Eyes: normal inspection, EOMI Neck: supple, Trachea midline Respiratory/Chest: Normal breath sounds, CTA, No accessory muscle use Cardiovascular: S1, S2, No murmur Abdomen/GI:Soft, Non tender, Bowel sounds present Extremities/Musculoskeletal:normal inspection, no edema Neurologic/Psych:AAOX3, grossly no focal neurological deficits Skin: normal color, warm Results & Data Results & Data ([facility]) Vital Signs (Past 12 Hours) Vital Signs Temp Pulse Pulse Pulse Resp BP BP 02/02/22 17:02 36.8 C 92 H 18 155/68 H 02/02/22 15:32 36.8 C 92 H 18 149/80 H 02/02/22 15:11 36.8 C 87 18 144/78 H 02/02/22 15:10 36.8 C 87 18 144/78 H 02/02/22 14:35 87 18 163/82 H 02/02/22 14:27 36.6 C 92 H 19 168/88 H 02/02/22 13:45 36.9 C 84 18 158/89 H 02/02/22 13:31 37.1 C 98 H 20 122/90 02/02/22 13:30 37.1 C 90 20 146/84 H 02/02/22 13:14 37.1 C 98 H 20 122/90 02/02/22 12:52 37.1 C 104 H 18 153/75 H 02/02/22 12:36 36.9 C 102 H 18 144/77 H 02/02/22 09:33 69 148/76 H 02/02/22 07:24 36.7 C 67 18 144/78 H Pulse Ox 02/02/22 17:02 94 02/02/22 15:32 91 02/02/22 15:11 92 02/02/22 15:10 92 02/02/22 14:35 92 02/02/22 14:27 96 02/02/22 13:45 95 02/02/22 13:31 97 02/02/22 13:30 95 02/02/22 13:14 97 02/02/22 12:52 92 02/02/22 12:36 92 02/02/22 09:33 02/02/22 07:24 96
[2022-02-02] MEDS: LOSARTAN POTASSIUM 50 MG TAB PO SCH (19:46)
[2022-02-02] MEDS: PANTOprazole 40 MG TAB PO SCH (19:46)
[2022-02-02] MEDS: AZELASTINE HCL 0.1% NASAL 200 SPRAYS/27,400 MCG BTL SCH (19:47)
[2022-02-03] MEDS: dexAMETHasone 8 MG in SYRINGE 0 ML IV SCH ×3 (05:02→21:22)
[2022-02-03] MEDS: MoRPHine SULFATE 10 MG/ML CARP/VIAL IV PRN ×2 (05:02→15:54)
[2022-02-03 07:15] LABS: Hematocrit (blood only) 40.2 % (42-52); Hemoglobin 13.5 g/dL (14.0-18.0); Mean Corpuscular Hemoglobin 29.9 pg (25-34); Mean Corpuscular Hgb Conc 33.6 g/dL (32-36); Mean Corpuscular Volume 88.9 fL (80-100); Mean Platelet Volume 10.3 fL (7.4-10.4); Platelet Count 296 K/uL (130-400); RDW Coefficient of Variation 13.7 % (11.5-14.5); RDW Standard Deviation 44.7 fL (36.4-46.3); Red Blood Count 4.52 M/uL (4.7-6.1)
[2022-02-03 07:43] LABS: BUN Creatinine Ratio 23.2 (10-20); Creatinine Clr Calc Pharmacy 118.4 ml/min; Potassium 4.5 mmol/L (3.5-5.1)
--- NOTE | 2022-02-03 08:53 | Orthopedic Progress Note ---
Date of Service February 03, 2022 Assessment & Plan (1) Cervical radiculopathy: Plan: At this time I am going to continue to make sure his pain is managed appropriately. He is going to attempt oral medications but knows that he can resort to IV narcotics if the symptoms become severe. If he does well today we will plan on discharge tomorrow. He still struggling with significant postoperative shoulder pain as well. And he does exhibit a component of cubital tunnel syndrome on the left. Admission and Anticipated Discharge Date Admission Date: January 31, 2022 Subjective Patient did have an epidural injection yesterday. He is noting some improvement. Still struggling with significant shoulder pain with range of motion. He still gets occasional radiculopathy. He did require IV narcotics last night to control symptoms. Physical Exam Physical Exam: On exam patient is standing and ambulating. He has tenderness palpation left shoulder. He has no gross radicular complaints with cervical range of motion today. Results & Data ([facility]) Vital Signs (Past 12 Hours) Vital Signs Temp Pulse Resp BP Pulse Ox 02/03/22 07:27 36.7 C 75 18 129/81 94 02/03/22 04:58 36.5 C 80 16 156/72 H 95 02/03/22 00:08 36.9 C 86 18 132/68 93
[2022-02-03] MEDS: POTASSIUM CITRATE 10 MEQ TAB PO SCH ×2 (09:14→20:37)
[2022-02-03] MEDS: TAMSULOSIN HCL 0.4 MG CAP PO SCH (09:14)
[2022-02-03] MEDS: DOCUSATE SODIUM/SENNA 50/8.6MG TAB PO SCH ×2 (09:14→20:36)
[2022-02-03] MEDS: allopurinoL 100 MG TAB PO SCH (09:14)
[2022-02-03] MEDS: POLYETHYLENE (MIRALAX) 17 GM PACK PO SCH (09:14)
[2022-02-03] MEDS: amLODIPine BESYLATE 5 MG TAB PO SCH (09:14)
[2022-02-03] MEDS: hydroCHLOROthiazide 25 MG TAB PO SCH (09:14)
--- NOTE | 2022-02-03 09:17 | Pain Management Progress Note ---
Date of Service February 03, 2022 Assessment & Plan (1) Cervical radiculopathy: (2) Abnormal coagulation profile: (3) Left shoulder pain: Plan: 1. We discussed expectations regarding benefit status post cervical RADHA and the patient verbalized understanding. He will follow-up with Dr. Cloud in the outpatient setting regarding any further interventional treatment. 2. Patient will continue with IV dexamethasone 3. We again briefly discussed initiating a trial of pregabalin but deferred due to his past history of CHF as a byproduct of gabapentin utilization per his report 4. Consider completing EMG of the upper extremity in the outpatient setting 5. Patient was encouraged to transition to the oral hydrocodone in place of IV morphine in attempt to determine efficacy for discharge planning. Consider [facility] IR for as needed breakthrough pain should he fail to respond to hydrocodone. 6. Pain service will sign off on patient at this time. Admission and Anticipated Discharge Date Admission Date: January 31, 2022 Subjective Mr. Rankin is a 66-year-old white male admitted with intractable pain in the left shoulder and left upper extremity traveling in a radicular pattern to the third and fourth finger. The patient did undergo a cervical C7-T1 interlaminar RADHA yesterday per Dr. 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 Patient reported no side effects from the epidural procedure. He reports symptoms are slightly improved today with less severity of pain in the left upper extremity. Patient rating his pain a 0-6/10. Continues with aching discomfort in the left shoulder with persisting diminished range of motion. He is continue to utilize IV morphine for as needed breakthrough pain. Patient is concerned about discharged home due to the severity of his pain. He denies any bowel or bladder incontinence, lower extremity weaknesses or paresthesia. Patient has no further constitutional complaints at this time. Plan of care discussed with Dr. Taryn Jefferson. Pain Assessment Pain Assessment Full Body Front + Back: 1. Left shoulder 2. Left upper extremity radicular pattern pain to third and fourth fingers with paresthesia Pain scale - at its best (0-10): 0 Pain scale - at its worst (0-10): 6 Physical Exam Physical Exam: General: Patient was standing upon entering the room in no acute distress. Speech and thought process appropriate. Mood and affect appro priate. Cognition intact. Neck: Band-Aid was removed for visual inspection. No evidence of edema, erythema or skin breakdown at site of cervical RADHA. Patient is nontender to palpation over the midline of the cervical spine or in the paravertebral musculature. Minimally tender in the left trapezius. Upper extremities: Strength testing 4+/5 on the left with handgrip and 5/5 on the right. He continues with resisted movement of the left shoulder with discomfort with minimal range of motion. Kelly sign negative bilaterally. Sensation intact without focal deficit. Neurologic: Cranial nerves grossly intact and ambulation normal.
[2022-02-03] MEDS: HYDROcodone/ACETAMINOPHEN 10/325 TAB PO PRN (10:23)
[2022-02-03] MEDS: AZELASTINE HCL 0.1% NASAL 200 SPRAYS/27,400 MCG BTL SCH (14:06)
--- NOTE | 2022-02-03 17:36 | Hospitalist Progress Note ---
Date of Service February 03, 2022 Assessment & Plan (1) Cervical radiculopathy: Plan: Patient is a 66 yr male who presents with severe neck pain. Cervical radiculopathy Neck CT:No acute cervical spine fracture or subluxation. Moderate multilevel degenerative changes within the cervical spine. Central canal and neural foramen but are depicted on MRI of January 31, 2022. S/P Cervical Epidural Steroid Injection by Pain control Appreciate orthopedics, pain management May need EMG as outpatient Leukocytosis likely secondary to steroids Constipation Continue bowel regimen Encouraged to ambulate as able Had small BM today Hypertension: Continue amlodipine,hctz, losartan Monitor BPH Continue Flomax H/O Diastolic congestive heart failure: Monitor volume status Continue home diuretics H/O Dyslipidemia: Poor tolerance to statins GERD On PPI H/O Abnormal coagulation profile: Follows with hem/onc. Receives 2 units of fresh frozen plasma before any procedures Morbid obesity BMI 45 DVT Px: SCDs for now Admission and Anticipated Discharge Date Admission Date: February 03, 2022 Subjective Patient is seen and examined at bedside No new complaints Still has neck pain radiating to left shoulder slowly improving Small bowel movement today Denies any chest pain, dyspnea, dizziness Review of Systems Review of Systems: All systems reviewed & are unremarkable except as noted in Subjective Physical Exam Physical Exam: Physical Exam: Vitals signs as noted above General Appearance:Morbidly Obese, no apparent distress Head: normocephalic, Atraumatic Eyes: normal inspection, EOMI Neck: supple, Trachea midline Respiratory/Chest: Normal breath sounds, CTA, No accessory muscle use Cardiovascular: S1, S2, No murmur Abdomen/GI:Soft, Non tender, Bowel sounds present Extremities/Musculoskeletal:normal inspection, no edema Neurologic/Psych:AAOX3, grossly no focal neurological deficits Skin: normal color, warm Results & Data Results & Data ([facility]) Vital Signs (Past 12 Hours) Vital Signs Temp Pulse Resp BP Pulse Ox 02/03/22 14:56 36.8 C 76 18 168/77 H 93 02/03/22 07:27 36.7 C 75 18 129/81 94 Laboratory Results Short CBC 02/03/22 Range/Units 06:42 WBC 16.30 H (4.8-10.8) K/uL Hgb 13.5 L (14.0-18.0) g/dL Hct 40.2 L (42-52) % Plt Count 296 (130-400) K/uL BMP 02/03/22 06:42 Sodium 134 L Potassium 4.5 Chloride 101 Carbon Dioxide 26 BUN 26 H Creatinine 1.12 Glucose 136 H Calcium 9.0
[2022-02-03] MEDS: MoRPHine SULFATE CR 15 MG TABCR PO SCH (20:35)
[2022-02-03] MEDS: LOSARTAN POTASSIUM 50 MG TAB PO SCH (20:35)
[2022-02-03] MEDS: PANTOprazole 40 MG TAB PO SCH (20:36)
[2022-02-04] MEDS: dexAMETHasone 8 MG in SYRINGE 0 ML IV SCH (05:09)
[2022-02-04] MEDS ORDERED: CALCIUM CARBONATE 500 MG CHEWABLE TAB PO PRN (06:20)
[2022-02-04] MEDS: POTASSIUM CITRATE 10 MEQ TAB PO SCH (08:54)
[2022-02-04] MEDS: POLYETHYLENE (MIRALAX) 17 GM PACK PO SCH (08:54)
[2022-02-04] MEDS: MoRPHine SULFATE CR 15 MG TABCR PO SCH (08:54)
[2022-02-04] MEDS: DOCUSATE SODIUM/SENNA 50/8.6MG TAB PO SCH (08:55)
[2022-02-04] MEDS: allopurinoL 100 MG TAB PO SCH (08:55)
[2022-02-04] MEDS: TAMSULOSIN HCL 0.4 MG CAP PO SCH (08:55)
[2022-02-04] MEDS: amLODIPine BESYLATE 5 MG TAB PO SCH (08:56)
[2022-02-04] MEDS: FUROSEMIDE 20 MG TAB PO SCH (08:56)
[2022-02-04] MEDS: hydroCHLOROthiazide 25 MG TAB PO SCH (08:56)
--- NOTE | 2022-02-04 09:46 | Discharge Summary ---
Date of Service February 04, 2022 Admission HPI Per Admitting Provider This is a 66-year-old male that presents with worsening left arm pain. He was scheduled for a cervical epidural injection but that this with Vesper his symptoms were too severe and sent him to the emergency room. He describes pain involving the left side of the neck into his left tricep extending down his arm into his ring and long finger. Any cervical range of motion exacerbates the symptoms. He is status post left shoulder surgery approximately 6 weeks ago and is still struggling with quite a bit of left shoulder pain as well. He has no right upper extremity symptoms. He denies any trauma fall or event. Principal Diagnosis Cervical radiculopathy status post shoulder surgery Discharge Data Allergies Allergy/AdvReac Type Severity Reaction Status Date / Time mometasone furoate Allergy Intermediate NOSE Verified 01/31/22 17:25 IRRITATION,"SCABBED UP" oxycodone AdvReac Severe violently Verified 01/31/22 17:25 "sick" Consultations 01/31/22 20:17 ED Decision to Admit Stat 01/31/22 22:15 Consult Internal Medicine Routine 02/01/22 15:56 Consult Pain Management Routine Procedures Performed Operation Date: 02/02/22 10:10 Actual Procedures p Cervical Epidural Steroid Injection(Not Applicable) - Taryn Jefferson DO Ordered Studies 01/31/22 17:12 MR cervical spine wo con Stat 02/01/22 10:34 CT cervical spine wo con Urgent 02/02/22 09:43 FL fluoro for pain procedure Routine Hospital Course (1) Cervical radiculopathy: Patient was admitted with a combination of severe cervical radiculopathy postoperative shoulder pain and inability control of symptoms. He required course of IV narcotics to control his symptoms. He did undergo an extensive work-up throughout his stay including MRI of the cervical spine and CAT scan. They demonstrate cervical spondylosis but no clear or acute neural compression. He underwent cervical epidural and tolerated this well. He continues to note steady improvement. He still struggled with pain but we are able to manage this with continued release morphine. Subsequently discharged home with MS Contin 30 mg p.o. twice daily understands this will be for 5 days. He has hydrocodone for breakthrough pain. He is to follow-up next week with both Dr. Pruitt his shoulder surgeon as well as Dr. Cloud his paint formulator. Total Time Total Time Spent Total Time Spent (In Minutes): 20 minutes Discharge Plan Discharge Items Patient Disposition: Home - Self-Care Reason For Visit: NECK AND ARM PAIN Discharge Diagnosis: Neck and arm pain Activity: As commented below Non-emergency contact: Primary Care Provider Call non-emergency contact if: you have any medication questions Follow-up/Referrals: Diamante Parisi, [Primary Care Provider] - Diet: Regular Addtl Attending Provider Instructions: Patient is to follow-up with both Dr. Cloud and Dr. Pruitt ideally next week. Pending Studies at Discharge: No Stand-Alone Forms: My [facility] [place], Smoking Cessation Medications and DC Order Prescriptions: New morphine 15 mg Tablet Extended Release 30 mg PO Q12H Qty: 5 RF: 0 hydrocodone-acetaminophen 5-325 mg tablet See Rx Instructions .ROUTE .COMPLEX PRN (Reason: pain) Qty: 30 RF: 0 Continued losartan 100 mg Tablet 100 mg PO QPM RF: 0 furosemide [Lasix] 20 mg Tablet 20 mg PO 3XWK RF: 0 carisoprodol [Soma] 350 mg Tablet 350 mg PO QID PRN (Reason: Muscle Pain) RF: 0 fexofenadine [Carola Allergy] 180 mg Tablet 180 mg PO DAILY PRN (Reason: Allergic Symptoms) RF: 0 aspirin 81 mg Tablet,Delayed Release (Dr/Ec) 81 mg PO 3XWK RF: 0 hydrochlorothiazide 25 mg Tablet 25 mg PO QAM RF: 0 omeprazole magnesium [Prilosec OTC] 20 mg Tablet,Delayed Release (Dr/Ec) 20 mg PO QPM RF: 0 amlodipine 5 mg Tablet 5 mg PO QAM RF: 0 tamsulosin [Flomax] 0.4 mg Capsule 0.4 mg PO QAM RF: 0 allopurinol 100 mg Tablet 100 mg PO QAM RF: 0 potassium citrate 10 mEq (1,080 mg) Tablet Extended Release 10 meq PO BID RF: 0 azelastine 137 mcg (0.1 %) Aerosol,Kennard 2 spray INTRANASAL QPM RF: 0 hydromorphone [Dilaudid] 2 mg tablet 2 mg PO .Q4h-6h MDD 6 PRN (Reason: pain) Qty: 30 RF: 0 hydrocodone-acetaminophen 10-325 mg tablet 1 tab PO DAILY PRN (Reason: Pain) RF: 0 Discharge Orders: Discharge Order (Routine); Ordered 02/04/22 Ordered By: Isai Ochoa Admission Data Admit Date/Time: 02/03/22 08:51 Attending Provider: Isai Ochoa Admit Provider: Isai Ochoa Primary Care Provider: Diamante Parisi Other Providers: Sherif Bay ; Isai Ochoa ; Ramonita Linares ; Taryn Jefferson Other Interventions: Discharge Summary Assessment (RN) Last Done: 02/04/22 09:03
--- NOTE | 2022-02-04 12:48 | Hospitalist Progress Note ---
Date of Service February 04, 2022 Assessment & Plan (1) Cervical radiculopathy: Plan: Patient is a 66 yr male who presents with severe neck pain. Cervical radiculopathy Neck CT:No acute cervical spine fracture or subluxation. Moderate multilevel degenerative changes within the cervical spine. Central canal and neural foramen but are depicted on MRI of January 31, 2022. S/P Cervical Epidural Steroid Injection by Pain control Appreciate orthopedics, pain management May need EMG as outpatient Leukocytosis likely secondary to steroids Advised to follow-up with orthopedics upon discharge Constipation Continue bowel regimen Encouraged to ambulate as able Constipation resolved Hypertension: Continue amlodipine,hctz, losartan Monitor BPH Continue Flomax H/O Diastolic congestive heart failure: Monitor volume status Continue home diuretics H/O Dyslipidemia: Poor tolerance to statins GERD On PPI H/O Abnormal coagulation profile: Follows with hem/onc. Receives 2 units of fresh frozen plasma before any procedures Morbid obesity BMI 45 DVT Px: SCDs for now Admission and Anticipated Discharge Date Admission Date: February 03, 2022 Subjective Patient is seen and examined at bedside States feeling a lot better today Neck pain improved No new complaints Denies any chest pain, dyspnea, dizziness Having regular bowel movements as per patient Review of Systems Review of Systems: All systems reviewed & are unremarkable except as noted in Subjective Physical Exam Physical Exam: Physical Exam: Vitals signs as noted above General Appearance:Morbidly Obese, no apparent distress Head: normocephalic, Atraumatic Eyes: normal inspection, EOMI Neck: supple, Trachea midline Respiratory/Chest: Normal breath sounds, CTA, No accessory muscle use Cardiovascular: S1, S2, No murmur Abdomen/GI:Soft, Non tender, Bowel sounds present Extremities/Musculoskeletal:normal inspection, no edema Neurologic/Psych:AAOX3, grossly no focal neurological deficits Skin: normal color, warm Results & Data Results & Data ([facility]) Vital Signs (Past 12 Hours) Vital Signs Temp Pulse Pulse Resp BP Pulse Ox 02/04/22 09:03 36.8 C 87 65 16 138/85 96 02/04/22 07:24 36.8 C 65 16 138/85 96
== END 2022-02-04 13:16 | disposition home or self-care (01) | DRG 74 ==
LOC: 3E 16:25 → ED 16:25 → 3E 21:18

== ENCOUNTER 2022-12-06 09:55 | Inpatient (IN) ==
--- NOTE | 2022-11-11 08:19 | History & Physical Report ---
Date of Service November 11, 2022 date of surgery: 12/06/22 Procedure: Right Total Knee Arthroplasty Surgeon: José Miguel Brothers Assessment & Plan (1) Arthritis of right knee: Plan: Patient has failed conservative measures and like to proceed with a right total knee replacement. We will await recommendations from hematology regarding patient's anticoagulation postoperatively as well as FFP preoperatively. Plan will be overnight stay at the hospital with discharge home with home health physical therapy. Follow-up in our office 2 weeks after surgery sooner is any problems otherwise has no other questions or concerns The risks and benefits have been discussed including, but not limited to, risk of infection, nerve injury, stiffness, loss of motion, failure to improve, etc. Reasonable outcomes and options of treatment were discussed. An explanation of appropriate alternatives to the procedure that may be advantageous were discussed and their risks and benefits, as well as the risks and benefits of not proceeding with treatment. I offered to answer any additional inquiries concerning the treatment involved. All the patient's questions were answered. The patient is agreeable, understanding of the treatment plan and alternatives, and wishes to proceed with the treatment plan. History of Present Illness Chief Complaint: Right knee pain Primary Care Provider: DO Brennon Gaitan is a 67-year-old male who presents for preop evaluation prior to his right total knee replacement. He states that he been having pain in his knee for many years now which gradually worsened and is now affecting his daily activities including walking standing using stairs. He is trying failed prior v iscosupplementation as well as prior knee arthroscopy about 2 years ago. Rates his current pain is a 7 out of 10. He is tried oral anti-inflammatories and Tylenol without much relief. This point time is failed conservative measures like proceed with right total knee replacement, he was recently rescheduled due to a positive COVID test. Allergies Allergy/AdvReac Type Severity Reaction Status Date / Time mometasone furoate Allergy Intermediate Nasal Verified 11/08/22 09:00 irritation, "scabbed up" oxycodone AdvReac Severe Severely Verified 11/08/22 09:00 "sick" Home Medications Medication Instructions Recorded Confirmed Type aspirin 81 mg tablet,delayed 81 mg PO 3XWK 10/22/19 11/08/22 History release carisoprodol 350 mg tablet (Soma) 350 mg PO QID PRN Muscle Pain 10/22/19 10/11/22 History fexofenadine 180 mg tablet 180 mg PO DAILY PRN Allergic 10/22/19 10/11/22 History (Carola Allergy) Symptoms omeprazole magnesium 20 mg 20 mg PO QPM 10/22/19 11/08/22 History tablet,delayed release (Prilosec OTC) amlodipine 5 mg tablet 5 mg PO QAM 10/24/19 11/08/22 History furosemide 20 mg tablet (Lasix) 40 mg PO QAM 09/07/20 11/08/22 History losartan 100 mg tablet 100 mg PO QPM 09/07/20 11/08/22 History tamsulosin 0.4 mg capsule (Flomax) 0.4 mg PO QAM 07/01/21 11/08/22 History allopurinol 100 mg tablet 100 mg PO QAM 12/01/21 11/08/22 History azelastine 137 mcg (0.1 %) nasal 2 spray intranasal QPM PRN 12/01/21 11/08/22 History spray aerosol Congestion hydromorphone 2 mg tablet 2 mg PO .Q4h-6h PRN pain #30 tabs 12/17/21 10/11/22 Rx (Dilaudid) hydrocodone 5 mg-acetaminophen 325 See Rx Instructions .Route 02/04/22 10/11/22 Rx mg tablet .COMPLEX PRN pain #30 tabs morphine 15 mg tablet,extended 30 mg PO Q12H #5 tabs 02/04/22 10/11/22 Rx release promethazine PO Q6H PRN Cough 10/12/22 History spironolactone 12 mg PO DAILY 10/12/22 11/08/22 History Past Med/Surg History Medical History Abnormal coagulation profile "Prolonged PT and PTT, all factor levels are normal, defect corrects with 50:50 mixing study, all invasive procedures should correct with 2 units FFP, test PT & act PTT after infusion to confirm correction. " Chronic back pain Chronic cough Unchanged x several months, suspected d/t remote RSV infection but no definitive diagnosis, no worsening issues Chronic neck pain Claustrophobia Coagulation factor disorder Had [facility] heme workup 11/08/19 for elevated PT/PTT prior to shoulder arthroscopy. Labs were repeated, as well as lupus anticoagulant. All were elevated, and heme recommended FFP prior to surgery. Patient received 2 units. Received recommendations from je[facility] (Dr. Land) advising 2 units FFP prior to knee surgery on 09/16. Dr Brothers to order. Degenerative disc disease Diastolic dysfunction With prior episodes of acute diastolic heart failure/volume overload occurring in the setting of uncontrolled hypertension as well as high-dose gabapentin and amlodipine therapies. 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 Perioperative recommendations provided. GERD (gastroesophageal reflux disease) Gout History of cervical fracture Remote hx 20+ years ago approximately at C3, managed without surgical intervention, no ROM limitations per pt History of kidney stones History of migraine [place] (hard of hearing) Hyperlipidemia Hypertension Leg edema monitoring with cardiology- occasional mostly around ankles, on diuretics Morbid obesity Osteoarthritis Surgical History H/O arthroscopy of shoulder Right Left shoulder scope, subacromial decompression (12/16/21): Grade view 4 with DL > Glidescope + PNB (see record for further details) at [facility]. History of anesthesia reaction Admitted overnight following colonoscopy 06/2021 [facility] syncopal episodes Seen by PCP 07/20/21 for hospital follow up- no issues on additional work up in hospital per PCP note- vitals stable during admission History of arthroscopy of right knee History of cardiac cath last done 08/2022 [facility] - no stents 2000 - no stents History of colonoscopy History of cystoscopy W/ STONE EXTRACTION History of lumbar discectomy Nausea and vomiting after administration of anesthetic agent S/P epidural steroid injection Lumbar and cervical S/P lumbar laminectomy S/P tonsillectomy and adenoidectomy Family History Other No family history of adverse response to anesthesia Social History Smoking Status: Former smoker Tobacco Type: Cigarettes Second Hand Exposure: No; Hx Alcohol Use: Yes Alcohol type: beer Hx Substance Use: No Preferred Language: Faroese Communication Ability: Effective 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: No Beliefs That Will Affect Care: None Current Living Situation: Spouse Feels Safe at Home: Yes Assistive Devices: Glasses and Hearing Aid - Bilateral Review of Systems Review of Systems: All systems reviewed & are unremarkable except as noted in HPI & below Constitutional: no fever, no chills and no sweats Respiratory: no cough and no dyspnea Cardiovascular: no chest pain, no dyspnea and no orthopnea Gastrointestinal: no abdominal pain, no nausea and no vomiting Musculoskeletal: as per Subjective / HPI Physical Exam Physical Exam: HT: 6ft 6in WT: 173.7kg Constitutional: WD/WN, vitals as above no acute distress Respiratory: normal respiratory effort, lungs clear to auscultation no respiratory distress, no labored breathing and does not use accessory muscles Cardiovascular: RRR, no murmur, no edema Gastrointestinal (Abdomen): normal bowel sounds, soft, nontender, no hepatosplenomegaly Musculoskeletal: Knee: + effusion (+1 effusion), + surgical incision (well healed portals), + limited ROM of knee (ROM 0/3/110), + knee ROM with crepitation, + joint line tenderness (medial joint line) and + Isidra's sign positive; no deformity, no skin erythema, no ecchymosis, no valgus laxity, no varus laxity, anterior drawer test negative, Preethi's sign negative and pivot shift test negative Results & Data Results & Data ([facility]) Diagnostic Findings Right Knee X-ray: Right knee series showing advanced degenerative changes to the right knee, narrowing of the medial compartment and patello-femoral joint with patellar spurring noted, findings showing joint space narrowing of the medial compartment and patello-femoral joint, osteophyte formation and subchondral sclerosis noted. overall varus alignment. no acute bony pathology noted.
--- NOTE | 2022-11-30 13:27 | Anesthesiology Consultation ---
Date of Service November 30, 2022 Assessment & Plan (1) Encounter for pre-operative examination: Chart Review Chart Review: Acceptable Risk for Surgery and Patient NOT seen in Pre Admission Testing - 2 units of FFP ordered for DOS (coags ordered to be checked after infusion) -COVID screening: Per PAT nursing assessment on 11/30/22. Pt tested Covid positive 11/08/22 prior to scheduled TKA. Pt did come into hospital and was cancelled after FFP was given. No known COVID-19 positive contacts or current/recent COVID-19 related symptoms. Travel screen negative. Patient vaccinated for Covid. Due to 90 day policy patient will NOT need retested for Covid prior to surgery (not Abbot is needed due to admission status due to 90 day Covid policy as well). -Factor X deficiency: Case/literature reviewed by Dr. Gamino on 10/12/22 (per previous anesthesia consultation). Given hx Factor X deficiency and hx of recommendation for preop FFP, he feels patient should be done underGA. Does not recommend further comment from hematology in regards to neuraxial anesthesia guidance- will be planning for GA regardless. OR made aware. Hematology note (10/17/22): "As he has received FFP before the surgical procedure,I would consider giving FFP before the surgical procedure." Patient has received 2 units FFP preoperatively with multiple procedures in the past including 08/2022 cardiac cath at [facility] without issue. Blood bank previously recommended patient come in 3-4 hours preoperatively in order to have time to receive preop FFP (order placed). Shantell at OR aware/will coordinate timing. Sonya in Blood Bank also made aware. -Cardiology note (10/10/22): "No cardiac contraindications" Left shoulder scope; subacromial decompression 12/16/21= Done under GA with Grade 4 view with DL with Glidescope #4. ETT #8.5. Unable to ventilate- Igel LMA #5 placed, SpO2 88%) History Surgery Operation Date: 12/06/22 13:05 Proposed Procedures p Right Total Knee Arthroplasty - José Miguel Brothers DO Height/Weight Height: 6 ft 6 in Weight: 168 kg Allergies Allergy/AdvReac Type Severity Reaction Status Date / Time mometasone furoate Allergy Intermediate Nasal Verified 11/30/22 12:50 irritation, "scabbed up" oxycodone AdvReac Severe Severely Verified 11/30/22 12:50 "sick" Medications Home Medications Medication Instructions Recorded Confirmed Last Taken aspirin 81 mg tablet,delayed 81 mg PO 3XWK 10/22/19 11/30/22 11/07/22 08:00 release carisoprodol 350 mg tablet (Soma) 350 mg PO QID PRN Muscle Pain 10/22/19 11/30/22 01/30/22 fexofenadine 180 mg tablet 180 mg PO DAILY PRN Allergic 10/22/19 11/30/22 12/02/21 (Carola Allergy) Symptoms omeprazole magnesium 20 mg 20 mg PO QPM 10/22/19 11/30/22 11/07/22 21:00 tablet,delayed release (Prilosec OTC) amlodipine 5 mg tablet 5 mg PO QAM 10/24/19 11/30/22 11/08/22 07:00 furosemide 20 mg tablet (Lasix) 40 mg PO QAM 09/07/20 11/30/22 11/07/22 08:00 losartan 100 mg tablet 100 mg PO QPM 09/07/20 11/30/22 11/07/22 21:00 tamsulosin 0.4 mg capsule (Flomax) 0.4 mg PO QAM 07/01/21 11/30/22 11/08/22 07:00 allopurinol 100 mg tablet 100 mg PO QAM 12/01/21 11/30/22 11/08/22 07:00 azelastine 137 mcg (0.1 %) nasal 2 spray intranasal QPM PRN 12/01/21 11/30/22 11/07/22 20:00 spray aerosol Congestion hydromorphone 2 mg tablet 2 mg PO .Q4h-6h PRN pain #30 tabs 12/17/21 11/30/22 Unknown (Dilaudid) hydrocodone 5 mg-acetaminophen 325 See Rx Instructions .Route 02/04/22 11/30/22 Unknown mg tablet .COMPLEX PRN pain #30 tabs morphine 15 mg tablet,extended 30 mg PO Q12H #5 tabs 02/04/22 11/30/22 Unknown release promethazine 1 dose PO Q6H PRN Cough 10/12/22 11/30/22 Unknown spironolactone 12 mg PO DAILY 10/12/22 11/30/2211/07/23 08:00 Past Medical History Medical History Abnormal coagulation profile "Prolonged PT and PTT, all factor levels are normal, defect corrects with 50:50 mixing study, all invasive procedures should correct with 2 units FFP, test PT & act PTT after infusion to confirm correction. " Chronic back pain Chronic cough Unchanged x several months, suspected d/t remote RSV infection but no definitive diagnosis, no worsening issues Chronic neck pain Claustrophobia Coagulation factor disorder Had [facility] heme workup 11/08/19 for elevated PT/PTT prior to shoulder arthroscopy. Labs were repeated, as well as lupus anticoagulant. All were elevated, and [facility] recommended FFP prior to surgery. Patient received 2 units. Received recommendations from [facility] (Dr. Land) advising 2 units FFP prior to knee surgery Degenerative disc disease Diastolic dysfunction With prior episodes of acute diastolic heart failure/volume overload occurring in the setting of uncontrolled hypertension as well as high-dose gabapentin and amlodipine therapies. 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 Perioperative recommendations provided. GERD (gastroesophageal reflux disease) Gout History of cervical fracture Remote hx 20+ years ago approximately at C3, managed without surgical intervention, no ROM limitations per pt History of kidney stones History of migraine [place] (hard of hearing) Hyperlipidemia Hypertension Leg edema monitoring with cardiology- occasional mostly around ankles, on diuretics Morbid obesity Osteoarthritis Past Family History Family History Other No family history of adverse response to anesthesia Past Surgical History Surgical History H/O arthroscopy of shoulder Right Left shoulder scope, subacromial decompression (12/16/21): Grade view 4 with DL > Glidescope + PNB (see record for further details) at [facility]. History of anesthesia reaction Admitted overnight following colonoscopy 06/2021 [facility] syncopal episodes Seen by PCP 07/20/21 for hospital follow up- no issues on additional work up in hospital per PCP note- vitals stable during admission History of arthroscopy of right knee History of cardiac cath last done 08/2022 [facility] - no stents 2000 - no stents History of colonoscopy History of cystoscopy W/ STONE EXTRACTION History of lumbar discectomy Nausea and vomiting after administration of anesthetic agent S/P epidural steroid injection Lumbar and cervical S/P lumbar laminectomy S/P tonsillectomy and adenoidectomy Social History Smoking Status: Former smoker tobacco type: cigarettes Do You Dip or Chew Tobacco: No Smoking End Date: 1982 Hx Alcohol Use: Yes Alcohol type: beer alcohol intake frequency: a few times a week Hx Substance Use: No substance use type: does not use Lab Results Anesthesia Preop Results Results Anesthesia Widget: WBC 5.79 K/ul (4.8-10.8) 10/12/22 Hgb 13.8 g/dl (14.0-18.0) L 10/12/22 Hct 40.1 % (40.1-51.0) 10/12/22 Plt 173 K/uL (130-400) 10/12/22 Na 140 mmol/L (136-145) 10/12/22 K 4.1 mmol/L (3.5-5.1) 10/12/22 Cl 108 mmol/L (98-107) H 10/12/22 CO2 29 mmol/L (21-32) 10/12/22 BUN 18 mg/dl (6-23) 10/12/22 Creat 1.19 mg/dl (0.6-1.4) 10/12/22 Glucose Level 89 mg/dl (70-99(Fasting)) 10/12/22 PT 14.8 Seconds (9.0-12.0) H 10/12/22 PTT 35.6 Seconds (21.0-31.0) H 10/12/22 INR 1.4 (0.9-1.1) H 10/12/22 HA1c 5.5 % (4.5-5.6) 10/12/22 Urine Color Yellow 10/12/22 Urine Appearance Clear (Clear) 10/12/22 Urine pH 5.5 (4.5-7.5) 10/12/22 Urine Specific [place] 1.022 (1.000-1.030) 10/12/22 Urine Protein Negative (Negative) 10/12/22 Urine Glucose (UA) Negative (Negative) 10/12/22 Urine Ketones Negative (Negative) 10/12/22 Urine Blood Negative (Negative) 10/12/22 Urine Nitrite Negative (Negative) 10/12/22 Urine Bilirubin Negative (Negative) 10/12/22 Urine Urobilinogen Negative (Negative) 10/12/22 Urine Leukocyte Esterase Negative (Negative) 10/12/22 Blood Type A Positive 10/12/22 Antibody Screen NEGATIVE 10/12/22 Testing Electrocardiogram Date: 07/13/22 SR with frequent PVCs in a pattern of bigeminy. Otherwise normal ECG. No significant change compared to 04/18/22 per sliding joint maker comparison. Chest X-Ray Date: 07/13/22 No radiographic evidence of acute cardiopulmonary disease. Echocardiogram Date: 05/06/22 LVEF 55-59%. No RWMA. Mildly increased cLV wall thickness. Grade I DD. Mild LAE. No significant valvular disease. No significant change compared to 09/08/2020 per report. Stress Test Date: 09/09/20 Type:nuclear Resting EF:66% Myocardial perfusion imaging is normal.Overall left ventricular systolic function was normal without regional wall motion abnormalities. No change compared to previous study 01/16/2017. Frequent PVCs throughout the study. Cardiac Catheterization Date: 08/18/22 Large-caliber right dominant coronary anatomy with only mild luminal irregularities Normal left ventricular systolic function, EF 60% with normal left end-diastolic pressure Ventricular ectopy and bigeminy Recommendations: Medical Therapy and/or Counseling
[~2022-12-06 09:55] MED LIST changes: +BUPIVACAINE 0.25% PF 30 ML VIAL ONE; +CeleBREX 200 MG CAP PO SCH; +DEXAMETHASONE SOD INJ 4 MG/ML VIAL ONE; +EPINEPHrine INJ 1 MG/ML AMP ONE; +FAMOTIDINE 20 MG TAB PO SCH; +GABAPENTIN 300 MG CAP PO SCH; +METOCLOPRAMIDE HCL 10 MG TABLET PO SCH; +ROPIVACAINE 0.5% HCL/PF 150 MG, BUPIVACAINE 0.75% MPF 20 ML, EPINEPHrine 30MG/30ML (OR ... INSTIL SCH; +TRANEXAMIC ACID 1,000 MG **IV Intra-op IV SCH; +TRANEXAMIC ACID 1,000 MG **IV Pre-op IV SCH; +dexAMETHasone 4 MG TAB PO SCH
--- NOTE | 2022-12-06 11:44 | History & Physical Bridge Note ---
Date of Service December 06, 2022 History & Physical Bridge Note I have examined the patient, reviewed the History & Physical and in the interval since the performance of the History & Physical I have noted the following changes of clinical significance: no changes noted
[2022-12-06] MEDS ORDERED: fentaNYL citrate PF 100 MCG/2 ML VIAL ONE ×3 (12:38→15:30)
[2022-12-06] MEDS ORDERED: KETAMINE 50 MG/5 ML SYRINGE ONE ×2 (12:38→14:37)
[2022-12-06] MEDS ORDERED: MIDAZOLAM HCL 1 MG/ML 2ML VIAL ONE ×2 (12:38→14:37)
[2022-12-06] MEDS ORDERED: ROCURONIUM BROMIDE 10 MG/ML 5 ML VIAL IV ONE (12:38)
[2022-12-06] MEDS ORDERED: LIDOCAINE 2% MPF LOCAL 5 ML VIAL INFIL ONE (12:38)
[2022-12-06] MEDS ORDERED: PROPOFOL IV EMULSION 10 MG/ML 20 ML VIAL IV ONE (12:38)
[2022-12-06] MEDS ORDERED: ORTHO JOINT ANESTHETIC ONE (14:12)
[2022-12-06 14:48] LABS: INR 1.3 (0.9-1.1); Partial Thromboplastin Ratio 1.3; Partial Thromboplastin Time 36.4 Seconds (21.0-31.0); Prothrombin Time 13.4 Seconds (9.0-12.0)
[2022-12-06] MEDS ORDERED: DexMEDEtomidine HCL IV 100 MCG/ML VIAL IV ONE (14:49)
[2022-12-06] MEDS ORDERED: HYDROmorphone INJ 2 MG/ML SYR/VIAL IV PRN (14:54)
[2022-12-06] MEDS ORDERED: PROMETHAZINE HCL 6.25 MG in SODIUM CHLORIDE 0.9% 50 ML IV PRN (14:54)
[2022-12-06] MEDS ORDERED: fentaNYL citrate PF 100 MCG/2 ML VIAL IV PRN (14:54)
[2022-12-06] MEDS ORDERED: ATROPINE SULFATE 0.1 MG/ML 10ML SYR IV PRN (14:54)
[2022-12-06] MEDS ORDERED: ePHEDrine sulfate 50 MG/ML AMP IV PRN (14:54)
[2022-12-06] MEDS ORDERED: ONDANSETRON INJ 2 MG/ML 2 ML VIAL IV PRN ×2 (14:54→20:08)
[2022-12-06] MEDS ORDERED: SUCCINYLCHOLINE CHLORIDE 20 MG/ML 10 ML VIAL IV ONE (15:47)
[2022-12-06] MEDS ORDERED: SUCCINYLCHOLINE 100MG/5ML SYR IV ONE (15:47)
--- NOTE | 2022-12-06 16:34 | Operative Report ---
Post Operative Report Pre & Post Diagnosis Operation Date: 12/06/22 13:05 Pre-Op Diagnosis: Arthritis of right knee Post-Op Diagnosis: Arthritis of right knee I identified the patient and participated in the time-out.: Yes Procedure Operation Date: 12/06/22 13:05 Actual Procedures p Right Total Knee Arthroplasty(Right) utilizing [employer] journey 2 p atient matched total knee arthroplasty size femur 8 tibia 7 poly 13 patella 38- José Miguel Brothers DO Surgeon José Miguel Brothers DO Clinical Psychology Teacher Socrates TEIXEIRA Estimated Blood Loss 5 Findings Consistent with Post-Op Diagnosis Patient presents with severe end-stage tricompartmental degenerative joint disease of the right knee no response to conservative management patient has eburnated [id number] ujea-fo-[id number] patellofemoral joint with [id number] me dial compartment patient is failed attempted conservative management Specimens Bone and cartilage Drains Medium bore Hemovac Anesthesia Type MAC Spinal Regional Complications none Disposition Accompanied Patient To Recovery: No Disposition: Recovery Room Indications Patient presents with ongoing DJD complaints about the right knee has had previous multiple arthroscopies corticosteroid injections viscosupplementation's failed this as well as physical therapy and unloading bracing presents with tricompartmental DJD eburnated exposed bone for a total knee arthroplasty Description of Procedure After proper prepping and draping of the Right lower extremity anterior midline incision was made over the region of the extensor extensor mechanism after meticulous hemostasis was obtained and maintained in subcutaneous tissues a medial parapatellar incision was made The patella was subluxed lateralward the medial lateral gutter were cleaned from any hypertrophic synovitis and scar tissue of the distal femoral block was placed and the distal femoral osteotomy cut was made subsequently the chamfers anterior and posterior osteotomy cuts were made utilizing the 4-in-1 block the tibia was subsequently subluxed anteriorward medial and ateral meniscal remnants were excised in their entirety remnants of the anterior and posterior cruciate ligaments were excised in their entirety excellent exposure of the proximal tibia was obtained the tibial osteotomy guide was placed on the proximal tibial osteotomy cut was made once again the knee was irrigated with copious amounts of sterile saline solution the patella was subsequently everted lateralward thickened scar tissue around the patella was removed the patella was subsequently cut utilizing a freehand technique and was drilled prepared for final preparation and placement of patella socially flexion-extension gaps were checked and the equal and symmetric trials were placed to the appropriate femoral and tibial trials with poly-spacer being placed for equal flexion and extension gaps and full range of motion including extension to 0 and flexion to 140 the trial components after having been taken to recovery range of motion was subsequently removed meticulous hemostasis was obtained and maintained subsequently a knee block injection of joint cocktail including ropivacaine 0.5% 150 mg. Bupivacaine 0.5% epinephrine 1-200,030 mL's toradol 30 mg dexamethasone 4 mg ketamine 10 mg clonidine 100 micrograms normal saline solution 30 mg was infiltrated into the soft tissues of the posterior knee medial lateral gutters and periosteal synovium special attention was paid to protect neurovascular structures at all times subsequently trial components having been removed the knee was irrigated with sterile saline solution. debris was removed the proximal tibia was subsequently prepared and was made ready for the placement of the tibial component tibial component was also cemented and tamped into position the femoral component was subsequently placed and cemented in the position the patellar component was subsequently cemented in position because hemostasis once again obtained and maintained wound having been thoroughly irrigated with debridement and debridement lavage was performed as well as a medial parapatellar incision closed with #1 Vicryl in interrupted fashion subcutaneous was closed with #2 Vicryl skin was closed with skin clips. PA-C was necessary for prepping and drapping as well as wound closu re of deep fascia Sub cutaneous tissue and skin and was necessary for the case. A sterile compressive dressing was placed patient was taken to recovery in stable condition of report dictated by Zev I attest to the content of the Intraoperative Record and any orders documented therein. Any exceptions are noted below.Due to the complex nature of the procedure, the entire surgery was performed with the operational assistance of Socrates TEIXEIRA. The administrative assistant coordinator, under direct supervision, was involved in the actual performance of all aspects of the surgical procedure including hemos tasis, tissue retraction and incision, instrument management, patient positioning, and wound closure. I attest to the content of the Intraoperative Record and any orders documented therein. Any exceptions are noted below.
[2022-12-06] MEDS ORDERED: ONDANSETRON INJ 2 MG/ML 2 ML VIAL ONE (16:41)
[2022-12-06] MEDS ORDERED: SUGAMMADEX SODIUM 200 MG/2 ML VIAL IV ONE (16:42)
[2022-12-06] MEDS ORDERED: HYDROmorphone INJ 2 MG/ML SYR/VIAL ONE (17:14)
--- NOTE | 2022-12-06 18:18 | Anesthesiology Progress Note ---
Date of Service December 06, 2022 Anesthesia Post Procedure Vital Signs Vital Signs: Temp Pulse Pulse Pulse Resp BP BP 12/06/22 18:01 82 15 12/06/22 18:10 36.2 C L 75 14 132/71 12/06/22 18:00 36.2 C L 79 14 132/74 12/06/22 17:47 36.2 C L 88 17 123/73 12/06/22 13:28 37 C 64 18 143/73 H 12/06/22 13:20 37 C 62 18 141/77 H 12/06/22 12:50 36.8 C 85 20 134/68 12/06/22 12:35 37 C 74 18 137/61 12/06/22 12:20 37 C 70 18 143/74 H 12/06/22 12:05 37 C 79 18 143/74 H 12/06/22 12:05 37 C 79 18 143/74 H 12/06/22 11:35 37 C 69 20 148/82 H 12/06/22 11:20 37 C 67 20 137/76 12/06/22 11:05 36.9 C 80 20 133/77 12/06/22 10:25 36.9 C 80 20 133/77 Pulse Ox O2 Del Method FiO2 12/06/22 18:01 91 80 12/06/22 18:10 93 BiPAP 80 12/06/22 18:00 94 BiPAP 80 12/06/22 17:47 91 BiPAP 12/06/22 13:28 95 12/06/22 13:20 94 12/06/22 12:50 96 12/06/22 12:35 95 12/06/22 12:20 95 12/06/22 12:05 95 12/06/22 12:05 95 12/06/22 11:35 95 12/06/22 11:20 94 12/06/22 11:05 95 12/06/22 10:25 95 Room Air Pain Intensity Right Knee: Pain Intensity: 0 Transfer of Care Handoff Completed per policy Notes Mental Status: alert / awake / arousable and participated in evaluation Patient Amnestic to Procedure: Yes Nausea / Vomiting: adequately controlled Pain: adequately controlled Airway Patency, RR, SpO2: see Notes below BP & HR: stable & adequate Hydration State: stable & adequate Anesthetic Complications: no major complications apparent and Pt Satisfied with anesthetic care Notes: Patient with known sig sleep apnea, obesity and chronic pain. He required BiPAP upon wake up in order to assist with him blowing off CO2. Decided that it was best for him to be upgraded to PCU where he can continue the BiPAP and also have him on continuous pulse oximetry. Surgeon team made aware and agree to the plan.
--- NOTE | 2022-12-06 18:43 | XRay Report ---
TWO VIEWS RIGHT KNEE CLINICAL HISTORY: Postoperative examination. FINDINGS: AP and crosstable lateral portable views of the right knee are obtained. A right knee arthr oplasty is in near anatomic alignment. There has been undersurface remodeling of the patella. No acut e fracture is seen. There are expected postoperative changes around the knee including a surgical min in, soft tissue edema, and subcutaneous gas. IMPRESSION: Expected postoperative changes status post right knee arthroplasty. No acute fracture is seen. ACT 112: Negative or not required by law. Electronically signed by: Coleman Wayne M.D. 12/06/2022 6:42 PM
--- NOTE | 2022-12-06 18:46 | Hospitalist Consultation ---
Date of Consultation December 06, 2022 Assessment & Plan (1) S/P TKR (total knee replacement): (2) Factor X deficiency: (3) Morbid obesity: (4) Hypertension: (5) Hyperlipidemia: Plan This is a 67-year-old male with PMH of factor X deficiency, hypertension, dyslipidemia, history of tobacco use and other medical problems listed below who is POD#0 s/p Right Total Knee Arthroplasty(Right) by Dr. Brothers. S/p R TKA POD#0 s/p Right Total Knee Arthroplasty(Right) by Dr. Brothers. Per ortho for pain control, wound care and activities Monitor H&H (EBL: 5ml, pre-op hgb 13.8) Continue incentive spirometry, PT/OT when appropriate Factor X deficiency Follows with Dr. Land of [facility] heme/onc. Recommended patient to receive 2 units fresh frozen plasma preoperatively No post op bleeding complications with surgeries over the past few years Discussed with ortho and blood bank - FFP available on site if needed Primary consulted heme/onc for further guidance on post-op VTE given coagulopathy Hypertension Continue amlodipine,losartan BPH Continue Flomax Diastolic congestive heart failure Monitor volume status tomorrow in post-op setting. Home diuretics include lasix and spironolactone H/O Dyslipidemia Poor tolerance to statins Morbid obesity BMI 44. Recommend lifestyle modification discussions during admission when appropriate Suspected DENISE Sleep study never performed given severe claustrophobia. Monitor O2 and consider supplemental O2/bipap as needed PCP: Isak Dispo: Per primary service Patient seen in collaboration with Dr. Linares. Please see addendum. Thank you for this consultation. We will follow the patient with you during their hospital stay. You can reach a member of the [facility] Hospitalist Team 10/04 via [employer]. A total of 60 minutes were spent with greater than 50% of that time face to face with the patient, personally reviewing all current laboratories, imaging studies, past medication reconciliation, outpatient chart review, and discussion with specialists to collaborate care for the patient with attending and utilization of translation services. Please see attending documentation for corrections and/or additions. Supervising Physician Co-Signing Physician Notes I have seen and examined the patient and have discussed the case with the provider above. I agree with the assessment and plan as stated. 67 yo M s/p right TKA. This patient has a history of factor X deficiency with a history of several uneventful orthopedic surgeries in the last few years when he was given 2 units of preop FFP, which he was also given today. There are no active bleeding issues but his pain in his knee is 12/10 and he is hungry and thirsty. He was initially on BIPAP when I came into the room but was oriented and very uncomfortable with the mask on reporting a degree of claustrophobia. He was more calm with this off and maintained a normal oxygen saturation. He was requesting food and pain medication for his knee. He reports not wanting to do anything that would cause a set back for him to get to rehab. His RLE is warm and well perfused with surgical dressing, hemovac drain and ice in place over the knee. EBL was 5cc intraoperatively. Will cont to monitor his progress during his hospital stay. Giving dilaudid now after speaking with primary RN. Will continue treating pain aggressively. He reports having a history of chronic vicodin use but stopped this two months ago. He denies any chronic alcohol use. Please consider discussing DVT prophylaxis with hematology prior to starting. Thank you for this consultation. DO Vijay History of Present Illness Reason for Consultation: Postop medical management Attending Physician: José Miguel Brothers DO History of Present Illness This is a 67-year-old male with PMH of factor X deficiency, hypertension, dyslipidemia, history of tobacco use and other medical problems listed below who is POD#0 s/p Right Total Knee Arthroplasty(Right) by Dr. Brothers. Due to coagulopathy, patient received 2u FFP pre-operatively. Follows with Dr. Butler [facility] heme/onc. Per note review from last November, factor 10 level was around 32%. Patient was seen and evaluated in the PACU following knee replacement. States he is having some postop discomfort at surgical site but denies any numbness in distal extremity. States he has had 4 operations over the past 3 years and each time has been transfused 2 units fresh frozen plasma preoperatively. Denies any postop complications with bleeding from those precedures. Does take aspirin 3 times a week per home medications. Denies any fever, chills, lightheadedness, headache, chest pain, shortness of breath, nausea, vomiting, abdominal pain, dysuria, diarrhea or constipation. Follows with Dr. Parisi for primary care. Allergies Allergy/AdvReac Type Severity Reaction Status Date / Time mometasone furoate Allergy Intermediate Nasal Verified 12/06/22 10:12 irritation, "scabbed up" oxycodone AdvReac Severe Severely Verified 12/06/22 10:12 "sick" Home Medications Medication Instructions Recorded Confirmed Type aspirin 81 mg tablet,delayed 81 mg PO MOWEFR@0900 10/22/19 12/06/22 History release omeprazole magnesium 20 mg 20 mg PO QPM 10/22/19 12/06/22 History tablet,delayed release (Prilosec OTC) amlodipine 5 mg tablet 5 mg PO QAM 10/24/19 12/06/22 History furosemide 20 mg tablet (Lasix) 40 mg PO QAM 09/07/20 12/06/22 History losartan 100 mg tablet 100 mg PO QPM 09/07/20 12/06/22 History tamsulosin 0.4 mg capsule (Flomax) 0.4 mg PO QAM 07/01/21 12/06/22 History allopurinol 100 mg tablet 100 mg PO QAM 12/01/21 12/06/22 History azelastine 137 mcg (0.1 %) nasal 2 spray intranasal QPM 12/01/21 12/06/22 History spray aerosol spironolactone 25 mg tablet 12.5 mg PO DAILY 12/06/22 12/06/22 History (Aldactone) Patient History Medical History (Updated 12/06/22 @ 20:22 by Linda Holt PA-C) Abnormal coagulation profile "Prolonged PT and PTT, all factor levels are normal, defect corrects with 50:50 mixing study, all invasive procedures should correct with 2 units FFP, test PT & act PTT after infusion to confirm correction. " Chronic back pain Chronic cough Unchanged x several months, suspected d/t remote RSV infection but no definitive diagnosis, no worsening issues Chronic neck pain Claustrophobia Coagulation factor disorder Had [facility] heme workup 11/08/19 for elevated PT/PTT prior to shoulder arthroscopy. Labs were repeated, as well as lupus anticoagulant. All were elevated, and heme recommended FFP prior to surgery. Patient received 2 units. Received recommendations from heme (Dr. Land) advising 2 units FFP prior to knee surgery Degenerative disc disease Diastolic dysfunction With prior episodes of acute diastolic heart failure/volume overload occurring in the setting of uncontrolled hypertension as well as high-dose gabapentin and amlodipine therapies. Factor X deficiency Follows with Dr. Land ([facility] hematology). Perioperative recommendations provided. GERD (gastroesophageal reflux disease) Gout History of cervical fracture Remote hx 20+ years ago approximately at C3, managed without surgical intervention, no ROM limitations per pt History of kidney stones History of migraine [place] (hard of hearing) Hyperlipidemia Hypertension Leg edema monitoring with cardiology- occasional mostly around ankles, on diuretics Morbid obesity Osteoarthritis Surgical History (Updated 12/06/22 @ 20:22 by Linda Holt PA-C) H/O arthroscopy of shoulder Right Left shoulder scope, subacromial decompression (12/16/21): Grade view 4 with DL > Glidescope + PNB (see record for further details) at [facility]. History of anesthesia reaction Admitted overnight following colonoscopy 06/2021 [facility] syncopal episodes Seen by PCP 07/20/21 for hospital follow up- no issues on additional work up in hospital per PCP note- vitals stable during admission History of arthroscopy of right knee History of cardiac cath last done 08/2022 [facility] - no stents 2000 - no stents History of colonoscopy History of cystoscopy W/ STONE EXTRACTION History of lumbar discectomy Nausea and vomiting after administration of anesthetic agent S/P epidural steroid injection Lumbar and cervical S/P lumbar laminectomy S/P tonsillectomy and adenoidectomy Family History Other Heart disease No family history of adverse response to anesthesia Stroke Social History Smoking Status: Former smoker Tobacco Type: Cigarettes Smoking End Date: 1982; Second Hand Exposure: No; Do You Dip or Chew Tobacco: No; Tobacco Cessation Education Requested by Patient: No Hx Alcohol Use: Yes Alcohol type: hard liquor Hx Substance Use: No Preferred Language: Greek Communication Ability: Effective Senior Manufacturing Engineer Required: No Beliefs That Will Affect Care: None Current Living Situation: Spouse Other Information That Helps Us Care for You: No Feels Safe at Home: Yes Safety Concerns: Feels Safe At This Time Assistive Devices: Glasses and Hearing Aid - Bilateral Review of Systems Review of Systems: At least ten systems reviewed and negative except as noted in the HPI. Physical Exam Physical Exam: Gen: WD/WN, NAD, lying in PACU recovery bay with bipap mask, A&Ox3, obese HEENT: Normocephalic, atraumatic, conjunctivae moist, sclerae anicteric, mucous membranes moist Lung: Clear to Auscultation bilaterally, no wheezes/rales/rhonchi Heart: Regular rate, regular rhythm, no murmurs, rubs, or gallops Abdomen: Soft, NT, ND +BS x 4 Extremities: R knee surgical dressing c/d/i. Drain visualized Skin: Warm, no rash Results & Data Results & Data Vital Signs (Past 12 Hours) Vital Signs Temp Pulse Pulse Pulse Resp BP BP 12/06/22 18:01 82 15 12/06/22 18:30 74 15 136/72 12/06/22 18:20 36.2 C L 75 12 129/72 12/06/22 18:10 36.2 C L 75 14 132/71 12/06/22 18:00 36.2 C L 79 14 132/74 12/06/22 17:47 36.2 C L 88 17 123/73 12/06/22 13:28 37 C 64 18 143/73 H 12/06/22 13:20 37 C 62 18 141/77 H 12/06/22 12:50 36.8 C 85 20 134/68 12/06/22 12:35 37 C 74 18 137/61 12/06/22 12:20 37 C 70 18 143/74 H 12/06/22 12:05 37 C 79 18 143/74 H 12/06/22 12:05 37 C 79 18 143/74 H 12/06/22 11:35 37 C 69 20 148/82 H 12/06/22 11:20 37 C 67 20 137/76 12/06/22 11:05 36.9 C 80 20 133/77 12/06/22 10:25 36.9 C 80 20 133/77 Pulse Ox O2 Del Method FiO2 12/06/22 18:01 91 80 12/06/22 18:30 95 BiPAP 80 12/06/22 18:20 92 BiPAP 80 12/06/22 18:10 93 BiPAP 80 12/06/22 18:00 94 BiPAP 80 12/06/22 17:47 91 BiPAP 12/06/22 13:28 95 12/06/22 13:20 94 12/06/22 12:50 96 12/06/22 12:35 95 12/06/22 12:20 95 12/06/22 12:05 95 12/06/22 12:05 95 12/06/22 11:35 95 12/06/22 11:20 94 12/06/22 11:05 95 12/06/22 10:25 95 Room Air Medications Administered Current Inpatient Medications Hydrocodone Bitart/Acetaminophen (Hydrocodone/Acetamophen 5/325mg Tab) 1 - 2 tab PO Q4H PRN PRN Reason: Pain or Pre PT Stop: 12/20/22 20:07 Allopurinol (Allopurinol 100 Mg Tab) 100 mg PO QAM [place] Stop: 01/06/23 08:59 Amlodipine Besylate (Amlodipine Besylate 5 Mg Tab) 5 mg PO QAM [facility] Stop: 01/06/23 08:59 Azelastine HCl (Azelastine Hcl 0.1% Nasal 200 Sprays/27,400 Mcg Btl) 2 sprays NA QPM PRN PRN Reason: Congestion Stop: 01/05/23 20:07 Bisacodyl (Bisacodyl 10 Mg Supp) 10 mg [place] DAILY PRN PRN Reason: Constipation Stop: 01/05/23 20:07 Carisoprodol (Carisoprodol 350 Mg Tablet) 350 mg PO QID PRN PRN Reason: Muscle Pain Stop: 01/05/23 20:07 Diphenhydramine HCl (Diphenhydramine 50 Mg/Ml Vial) 25 mg IV Q8H PRN PRN Reason: Itching Stop: 01/05/23 20:07 Docusate Sodium (Docusate Sodium 100 Mg Cap) 100 mg PO BID [place] Stop: 01/05/23 20:59 Fexofenadine HCl (Fexofenadine Hcl 180 Mg Tab) 180 mg PO DAILY PRN PRN Reason: Allergic Symptoms Stop: 01/05/23 20:07 Furosemide (Furosemide 40 Mg Tab) 40 mg PO QAM [place] Stop: 01/06/23 08:59 Hydromorphone HCl (Hydromorphone Inj 0.5 Mg/0.5 Ml Syr) 0.5 mg IV Q4H PRN PRN Reason: Pain or Pre PT Stop: 12/20/22 20:07 Last Admin: 12/06/22 20:26 Dose: 0.5 mg Cefazolin Sodium (Ancef 2000mg) 2,000 mg in 15 mls @ 3.75 mls/min IV Q8H [facility]; Protocol Stop: 12/07/22 07:18 Sodium Chloride (Nss 1000ml) 1,000 mls @ 100 mls/hr IV .Q10H [facility] Stop: 12/07/22 06:00 Last Admin: 12/06/22 20:29 Dose: 100 mls/hr Losartan Potassium (Losartan Potassium 50 Mg Tab) 100 mg PO QPM [facility] Stop: 01/05/23 20:59 Magnesium Hydroxide (Magnesium Hydroxide Susp 30 Ml Udc) 30 ml PO Q6H PRN PRN Reason: Constipation Stop: 01/05/23 20:07 Morphine Sulfate (Morphine Sulfate Cr 15 Mg Tabcr) 30 mg PO Q12H PRN PRN Reason: Pain Stop: 12/20/22 20:07 Multivitamins (Multivitamin Tab) 1 tab PO QAM [facility] Stop: 01/06/23 08:59 Naloxone HCl (Naloxone Hcl 0.4 Mg/1 Ml Vial/Carp) 0.1 mg IV Q5M PRN PRN Reason: Oversedation/Resp Depression Stop: 01/05/23 20:07 Ondansetron HCl (Ondansetron Inj 2 Mg/Ml 2 Ml Vial) 4 mg IV Q6H PRN PRN Reason: Nausea And Vomiting Stop: 01/05/23 20:07 Pantoprazole Sodium (Pantoprazole 40 Mg Tab) 40 mg PO QAM [facility] Stop: 01/06/23 08:59 Sennosides (Senna 8.6 Mg Tab) 17.2 mg PO HS [facility] Stop: 01/05/23 20:59 Spironolactone (Spironolactone 12.5 Mg Tab) 12.5 mg PO DAILY [facility] Stop: 01/06/23 08:59 Tamsulosin HCl (Tamsulosin Hcl 0.4 Mg Cap) 0.4 mg PO QAM [facility] Stop: 01/06/23 08:59
[2022-12-06] MEDS ORDERED: bisacodyL 10 MG SUPP PR PRN (20:08)
[2022-12-06] MEDS ORDERED: NALOXONE HCL 0.4 MG/1 ML VIAL/CARP IV PRN (20:08)
[2022-12-06] MEDS ORDERED: MoRPHine SULFATE CR 15 MG TABCR PO PRN (20:08)
[2022-12-06] MEDS ORDERED: CARISOPRODOL 350 MG TABLET PO PRN (20:08)
[2022-12-06] MEDS ORDERED: diphenhydrAMINE 50 MG/ML VIAL IV PRN (20:08)
[2022-12-06] MEDS ORDERED: FEXOFENADINE HCL 180 MG TAB PO PRN (20:08)
[2022-12-06] MEDS ORDERED: AZELASTINE HCL 0.1% NASAL 200 SPRAYS/27,400 MCG BTL PRN (20:08)
[2022-12-06] MEDS ORDERED: SODIUM CHLORIDE 0.9% 1000ML 1,000 ML IV SCH (20:08)
[2022-12-06] MEDS ORDERED: MAGNESIUM HYDROXIDE SUSP 30 ML UDC PO PRN (20:08)
[2022-12-06] MEDS: HYDROmorphone INJ 0.5 MG/0.5 ML SYR IV PRN (20:26)
[2022-12-06] MEDS: LOSARTAN POTASSIUM 50 MG TAB PO SCH (21:50)
[2022-12-06] MEDS: PANTOprazole 40 MG TAB PO SCH (21:51)
[2022-12-06] MEDS: SENNA 8.6 MG TAB PO SCH (21:52)
[2022-12-06] MEDS: DOCUSATE SODIUM 100 MG CAP PO SCH (21:52)
[2022-12-06] MEDS: HYDROCODONE/ACETAMOPHEN 5/325MG TAB PO PRN (21:58)
[2022-12-06] MEDS: ceFAZolin 2000MG 2,000 MG/15 ML SYR IV SCH (22:53)
[2022-12-07] MEDS: HYDROCODONE/ACETAMOPHEN 5/325MG TAB PO PRN (03:07)
[2022-12-07 06:10] LABS: Hematocrit (blood only) 36.3 % (42.0-52.0); Hemoglobin 12.4 g/dl (14.0-18.0); Mean Corpuscular Hemoglobin 29.6 pg (25.0-34.0); Mean Corpuscular Hgb Conc 34.2 g/dL (32.0-36.0); Mean Corpuscular Volume 86.6 fL (80.0-100.0); Mean Platelet Volume 10.5 fL (9.4-12.4); Platelet Count 220 K/uL (130-400); RDW Standard Deviation 40.7 fL (36.4-46.3); Red Blood Count 4.19 M/uL (4.70-6.10); White Blood Count 17.51 K/ul (4.8-10.8)
[2022-12-07 06:27] LABS: BUN Creatinine Ratio 21.6 (10-20); Calcium 8.6 mg/dl (8.5-10.1); Creatinine Clr Calc Pharmacy 102.8 ml/min; Est GFR (African American) 69.6 ml/min; Potassium 4.6 mmol/L (3.5-5.1)
[2022-12-07] MEDS: HYDROcodone/ACETAMINOPHEN 10/325 TAB PO PRN ×2 (08:21→12:26)
[2022-12-07] MEDS: ceFAZolin 2000MG 2,000 MG/15 ML SYR IV SCH (08:22)
[2022-12-07] MEDS: amLODIPine BESYLATE 5 MG TAB PO SCH (08:23)
[2022-12-07] MEDS: allopurinoL 100 MG TAB PO SCH (08:23)
[2022-12-07] MEDS: FUROSEMIDE 40 MG TAB PO SCH (08:24)
[2022-12-07] MEDS: SPIRONOLACTONE 12.5 MG TAB PO SCH (08:24)
[2022-12-07] MEDS: TAMSULOSIN HCL 0.4 MG CAP PO SCH (08:24)
[2022-12-07] MEDS: DOCUSATE SODIUM 100 MG CAP PO SCH ×2 (08:24→20:18)
[2022-12-07] MEDS: MULTIVITAMIN TAB PO SCH (08:24)
--- NOTE | 2022-12-07 08:28 | Orthopedic Progress Note ---
Date of Service December 07, 2022 Assessment & Plan (1) Arthritis of right knee: Plan: Postop day 1 status post right total knee arthroplasty. PT/OT protocols. Weightbearing as tolerated right lower extremity. DVT prophylaxis-I had spoken to hospitalist service last night. They feel that twice daily aspirin low-dose is reasonable at this time. We will also check in with hematology who has been consulted to get their input. Pain management-MS Contin has been discontinued. Hydrocodone has been changed to 10/325 1 tab p.o. every 4 hours as needed. Patient also has hydromorphone 0.5 mg IV every 4 hours as needed. Patient states that he has used NSAIDs in e past for short-term. Question use of Celebrex versus Toradol during his stay at the hospital if needed. Patient has a long history of chronic pain secondary to a neck injury in the past. Factor X deficiency -hematology consult placed. Await input. DC planning-patient is planning for home health services upon discharge. Plan for discharge to home if progressing well with physical therapy and pain control remains adequate. Admission and Anticipated Discharge Date Admission Date: December 06, 2022 Subjective Postop day 1 Patient is sitting up in his chair at the bedside. Minimal complaints today. He has some mild discomfort over the patella this morning but otherwise is feeling well. We discussed his pain management at length. Patient stated that he had pretty much stopped taking most of his narcotics other than his hydrocodone approximately 2 months prior to the surgery. He states the hydrocodone was then taken only when necessary. It was not taken on a regular basis. He states that he was taking a 10/325 tablet as needed. He states that the MS Contin that he had been prescribed previously did not work for him and has been discontinued. He would like to see if the hydrocodone is going to work well for him. Aspects of the surgery was discussed. Patient had no other questions. Denies shortness of breath, chest pain, lightheadedness. Physical Exam Physical Exam: Dressings are clean, dry, and intact. Calves are soft nontender. Neurovascular intact. Toes are mobile. He had good dorsiflexion and plantarflexion of his right foot. He had 250 cc of drainage from his knee from the previous shift. Total of 350 cc since collection started. Results & Data Vital Signs (Past 12 Hours) Vital Signs Temp Pulse Pulse Resp BP BP Pulse Ox 12/07/22 07:52 36.8 C 74 20 147/72 H 97 12/07/22 02:42 36.5 C 80 18 132/68 94 12/07/22 00:00 86 12/06/22 21:00 84 12/06/22 20:30 12/06/22 20:25 73 140/82 92 12/06/22 23:15 89 12/06/22 23:00 86 12/06/22 22:45 90 12/06/22 22:30 85 12/06/22 22:15 84 12/06/22 22:00 81 12/06/22 21:45 92 H 12/06/22 21:30 88 12/06/22 21:15 85 12/06/22 21:00 86 12/06/22 20:45 92 12/06/22 20:45 105/82 12/06/22 20:30 92 12/06/22 20:30 140/82 12/06/22 20:28 133/76 12/06/22 20:28 93 12/06/22 20:25 193/102 H 12/06/22 20:25 92 12/06/22 22:32 36.6 C 84 16 137/80 96 12/06/22 21:11 36.8 C 80 18 133/76 92 O2 Del Method O2 Flow Rate 12/07/22 07:52 Room Air 12/07/22 02:42 Nasal Cannula 12/07/22 00:00 12/06/22 21:00 12/06/22 20:30 Nasal Cannula 12/06/22 20:25 Nasal Cannula 2 12/06/22 23:15 12/06/22 23:00 12/06/22 22:45 12/06/22 22:30 12/06/22 22:15 12/06/22 22:00 12/06/22 21:45 12/06/22 21:30 12/06/22 21:15 12/06/22 21:00 12/06/22 20:45 12/06/22 20:45 12/06/22 20:30 12/06/22 20:30 12/06/22 20:28 12/06/22 20:28 12/06/22 20:25 12/06/22 20:25 12/06/22 22:32 Nasal Cannula 3 12/06/22 21:11 Nasal Cannula 2 Laboratory Results Laboratory Results WBC 17.51 K/ul (4.8-10.8) H 12/07/22 05:52 RBC 4.19 M/uL (4.70-6.10) L 12/07/22 05:52 Hgb 12.4 g/dl (14.0-18.0) L 12/07/22 05:52 Hct 36.3 % (42.0-52.0) L 12/07/22 05:52 MCV 86.6 fL (80.0-100.0) 12/07/22 05:52 MCH 29.6 pg (25.0-34.0) 12/07/22 05:52 MCHC 34.2 g/dL (32.0-36.0) 12/07/22 05:52 RDW Std Deviation 40.7 fL (36.4-46.3) 12/07/22 05:52 RDW Coeff of Shirlene 13.0 % (11.5-14.5) 12/07/22 05:52 Plt Count 220 K/uL (130-400) 12/07/22 05:52 MPV 10.5 fL (9.4-12.4) 12/07/22 05:52 PT 13.4 Seconds (9.0-12.0) H 12/06/22 13:59 INR 1.3 (0.9-1.1) H 12/06/22 13:59 APTT 36.4 Seconds (21.0-31.0) H 12/06/22 13:59 PTT Ratio 1.3 12/06/22 13:59 Sodium 134 mmol/L (136-145) L 12/07/22 05:52 Potassium 4.6 mmol/L (3.5-5.1) 12/07/22 05:52 Chloride 105 mmol/L (98-107) 12/07/22 05:52 Carbon Dioxide 23 mmol/L (21-32) 12/07/22 05:52 Anion Gap 6 (3-11) 12/07/22 05:52 BUN 27 mg/dl (6-23) H 12/07/22 05:52 Creatinine 1.25 mg/dl (0.6-1.4) 12/07/22 05:52 Est Cr Clr Drug Dosing 102.8 ml/min 12/07/22 05:52 Est GFR ( Amer) 69.6 ml/min 12/07/22 05:52 Est GFR (Non-Af Amer) 60.0 ml/min 12/07/22 05:52 BUN/Creatinine Ratio 21.6 (10-20) H 12/07/22 05:52 Glucose 154 mg/dl (70-99(Fasting)) H 12/07/22 05:52 Calcium 8.6 mg/dl (8.5-10.1) 12/07/22 05:52 Blood Type A Positive 12/06/22 10:11 Antibody Screen NEGATIVE 12/06/22 10:11 Impressions Knee X-Ray 12/06/22 17:26 TWO VIEWS RIGHT KNEE CLINICAL HISTORY: Postoperative examination. FINDINGS: AP and crosstable lateral portable views of the right knee are obtained. A right knee arthroplasty is in near anatomic alignment. There has been undersurface remodeling of the patella. No acute fracture is seen. There are expected postoperative changes around the knee including a surgical drain, soft tissue edema, and subcutaneous gas. IMPRESSION: Expected postoperative changes status post right knee arthroplasty. No acute fracture is seen. ACT 112: Negative or not required by law. Electronically signed by: Coleman Wayne M.D. 12/06/2022 6:42 PM
[2022-12-07] MEDS ORDERED: ASPIRIN 81 MG ECTAB PO SCH (09:00)
[2022-12-07] MEDS: PANTOprazole 40 MG TAB PO SCH (09:11)
[2022-12-07 09:37] LABS: INR 1.4 (0.9-1.1); Prothrombin Time 14.3 Seconds (9.0-12.0)
[2022-12-07] MEDS: HYDROmorphone INJ 0.5 MG/0.5 ML SYR IV PRN (13:34)
[2022-12-07] MEDS ORDERED: HYDROmorphone INJ 0.5 MG/0.5 ML SYR IV PRN (13:48)
[2022-12-07] MEDS: MoRPHine SULFATE 4 MG/ML 1 ML CARP\\VIAL IV PRN ×2 (15:05→19:35)
--- NOTE | 2022-12-07 17:03 | Hospitalist Progress Note ---
Date of Service December 07, 2022 Assessment & Plan (1) S/P TKR (total knee replacement): (2) Factor X deficiency: (3) Morbid obesity: (4) Hypertension: (5) Hyperlipidemia: Plan Per previous hospitalist notes with addendum: This is a 67-year-old male with PMH of factor X deficiency, hypertension, dyslipidemia, history of tobacco use and other medical problems listed below who is POD#0 s/p Right Total Knee Arthroplasty(Right) by Dr. Brothers. S/p R TKA POD#1 s/p Right Total Knee Arthroplasty(Right) by Dr. Brothers. Monitor H&H Patient reports good pain control with morphine IV in the past, Dilaudid changed to morphine as needed Hold aspirin for now in light of continued serosanguineous output from drain Factor X deficiency Follows with Dr. Butler [facility] heme/onc. Has received 2 units of FFP prior to surgery Currently serosanguineous output from drain is around [address] Hartman-recommend 2 units of FFP if output drain is unusually high Discussed with LLUVIA Bunn Hypertension Continue amlodipine,losartan BPH Continue Flomax Diastolic congestive heart failure Euvolemic Continue Lasix and spironolactone H/O Dyslipidemia Poor tolerance to statins Morbid obesity BMI 44. Recommend lifestyle modification discussions during admission when appropriate Suspected DENISE Sleep study never performed given severe claustrophobia. Monitor O2 and consider supplemental O2/bipap as needed PCP: Isak Dispo: Per primary service Admission and Anticipated Discharge Date Admission Date: December 06, 2022 Subjective Follow-up status post right TKA, factor X deficiency, etc. Seen resting in bed, not in distress Reports severe pain after physical therapy today Denies dizziness, chest pain, shortness of breath No other symptoms Review of Systems Review of Systems: all noted and negative except for above Physical Exam Physical Exam: General- oriented x 3, not in distress, speaks in sentences with no effort or accessory muscle use Eyes- anicteric Neck- no JVD Lungs- clear breath sounds bilaterally, no rales/wheezes Heart- normal rate, regular rhythm; no murmurs Abdomen- normal bowel sounds, nondistended, soft, nontender Extremities- no pretibial edema, no calf tenderness Right knee-heavy dressing in place, drain in place with serosanguineous output Neuro- alert, oriented x 3; no gross focal neurologic deficits Skin- warm & dry Results & Data Results & Data Vital Signs (Past 12 Hours) Vital Signs Temp Pulse Pulse Resp BP Pulse Ox O2 Del Method 12/07/22 15:21 82 12/07/22 12:00 36.8 C 69 18 130/75 95 Room Air 12/07/22 08:00 81 12/07/22 07:52 36.8 C 74 20 147/72 H 97 Room Air all noted and reviewed including below
[2022-12-07] MEDS: SENNA 8.6 MG TAB PO SCH (20:17)
[2022-12-07] MEDS: LOSARTAN POTASSIUM 50 MG TAB PO SCH (20:18)
--- NOTE | 2022-12-07 21:44 | Consultation ---
Date of Consultation December 07, 2022 Assessment & Plan (1) Factor X deficiency: Unfortunately, there are no records available that specifically indicate the degree of his baseline Factor X deficiency nor that confirm the apparent historically "validated" FFP volume to restore to "adequate" levels of factor X. Postoperative dilemma is to simultaneously maintain adequate factor levels to avoid dangerous hemorrhage and yet in so doing to be aware of and and avoid the postoperative risk of thrombosis. The post-op management pattern approaching patients with classic hemophilia would be to restore factor levels to "normal" range and use standard pharmacologic prophylaxis during the high risk period. Unfortunately, in using fresh frozen plasma in an institution that does not have the ability to rapidly turnaround factor X levels, we have no specific sense of precisely where he is in terms of replacement compared to normal. Anticoagulation could be hazardous without the predictable normal range factor in creating excessive bleeding risk. At the same time, if he indeed does have adequate factor X levels and he does not get anticoagulation thrombosis can still occur despite his inherent bleeding tendency While there is some temptation to let the disease itself serve as his anticoagulation (untreated deficiency presumably decreasing postop thrombosis risk), that is not a sufficiently controlled or validated approach and would simultaneously have unquantifiable risks for both thrombosis and bleeding. Coagadex (Factor X specific concedntrate), especially for a more significant surgery such as this, would be a preferred supportive approach. Up-to-date suggests a minimum of 2 to 3 days after "minor" surgery of optimal factor support should be administered and for more significant surgeries, maintenance of normal coagulation levels should continue until "healing." This would be ideally coordinated in the hemophilia center with staff well experienced and knowledgeable regarding replacement therapy, a lab that can quickly turnaround factor X levels for confirmation of dose, and in that setting well controlled factor replacement would allow for appropriate pharmacologic anticoagulation. If the patient can be discharged in the very near future, he should be immediately connected with the hemophilia team at [facility] that has been following him and with them coordinate an appropriate plan for extended replacement and thrombosis prophylaxis If he cannot be discharged promptly and shows any signs of either significant bleeding or thrombosis, I would consider urgent inpatient transfer to such a center. As a "stopgap" if he did develop immediately significant bleeding, at [facility] 1 if not 2 units of fresh frozen plasma could be administered but as above that would be a less than ideal long-term plan While he has been historically apparently managed to successfully navigate procedures including arthroscopic surgery of his shoulder with only preoperative fresh frozen plasma, that is unfortunately no guarantee that he will be similarly stable on this occasion especially where the surgery was more involved. In the absence of the ability to titrate with reasonable turnaround X levels to optimally guide dlosing, however, I am not able to give a explicit algorithmic recommendation for ongoing factor support or anticoagulation. Given his past stability (which to some extent suggests he has mild rather than severe factor X deficiency) and in shared decision-making with the patient, if it is chosen to manage him here you could choose to simply observe. As above, signs of either bleeding or thrombosis should prompt urgent transfer Plan 1. More ideal management would be with Coagadex but that is not available at this institution and we do not have a history in him in terms of how to do dosing nor do we have the ability to have realistic turnaround factor X levels available to titrate. If he can be discharged soon, he should be immediately referred to the hemophilia team at [facility] for ongoing recommendations with regards to factor replacement and short-term postoperative anticoagulation 2. If he remains inpatient, as above I cannot offer specific guidance in terms of fresh frozen plasma dosing nor of how to best approach anticoagulation. Given his apparent historic stability, you could consider in shared decision making simply observing but that will be with somewhat unquantifiable bleeding and thrombosis risks. If he develops any suggestions of either thrombosis or bleeding, inpatient transfer to a hemophilia team would be critical. 3. Immediately threatening bleeding could be approached with plasma though that should only be a prelude to such transfer 4. Would suggest that he work with the hemophilia to update a surgical approach for the future based more on Coagadex and more precise replacement that would include hemophilia team recommendations for how to manage needed anticoagulation simultaneously. Even with such an algorithm in place, any significant surgical procedures would be more ideally performed in a setting where there is a hemophilia team on site History of Present Illness Reason for Consultation: Consulted postoperatively for patient with factor X deficiency who is status post TKR for optimal management Attending Physician: José Miguel Brothers, DO History of Present Illness Patient has a history of factor X deficiency though he describes no episodes of life-threatening bleeding. He is unsure whether his degree of deficiency is mild/moderate or severe, he says that at times the word severe have been used in describing his case he also seems to remember a possible 20-25% factor level. The historic approach to procedures and at least arthroscopic surgery has been to give him 2 units of fresh frozen plasma prior to the procedure but no follow- up thereafter. Based on the historic approach, his surgery was performed yesterday with 2 units of fresh frozen plasma given in advance. All recorded PTs remain elevated. Did reasonably well with the surgery, drain is in place and continues to draining bloody fluid but the orthopedics PA tells me that these amounts are not outside of the volumes that might be "routine" seen postoperatively. The rapid discharge was planned, patient indicates that he has had severe pain management issues historically that for his shoulder arthroscopic surgery required multiday admission before pain was adequately controlled for outpatient management Allergies Allergy/AdvReac Type Severity Reaction Status Date / Time mometasone furoate Allergy Intermediate Nasal Verified 12/06/22 10:12 irritation, "scabbed up" oxycodone AdvReac Severe Severely Verified 12/06/22 10:12 "sick" Home Medications Medication Instructions Recorded Confirmed Type aspirin 81 mg tablet,delayed 81 mg PO MOWEFR@0900 10/22/19 12/06/22 History release omeprazole magnesium 20 mg 20 mg PO QPM 10/22/19 12/06/22 History tablet,delayed release (Prilosec OTC) amlodipine 5 mg tablet 5 mg PO QAM 10/24/19 12/06/22 History furosemide 20 mg tablet (Lasix) 40 mg PO QAM 09/07/20 12/06/22 History losartan 100 mg tablet 100 mg PO QPM 09/07/20 12/06/22 History tamsulosin 0.4 mg capsule (Flomax) 0.4 mg PO QAM 07/01/21 12/06/22 History allopurinol 100 mg tablet 100 mg PO QAM 12/01/21 12/06/22 History azelastine 137 mcg (0.1 %) nasal 2 spray intranasal QPM 12/01/21 12/06/22 History spray aerosol spironolactone 25 mg tablet 12.5 mg PO DAILY 12/06/22 12/06/22 History (Aldactone) Patient History Medical History (Updated 12/06/22 @ 20:22 by Linda Holt PA-C) Abnormal coagulation profile "Prolonged PT and PTT, all factor levels are normal, defect corrects with 50:50 mixing study, all invasive procedures should correct with 2 units FFP, test PT & act PTT after infusion to confirm correction. " Chronic back pain Chronic cough Unchanged x several months, suspected d/t remote RSV infection but no definitive diagnosis, no worsening issues Chronic neck pain Claustrophobia Coagulation factor disorder Had [facility] heme workup 11/08/19 for elevated PT/PTT prior to shoulder arthroscopy. Labs were repeated, as well as lupus anticoagulant. All were elevated, and heme recommended FFP prior to surgery. Patient received 2 units. Received recommendations from jean (Dr. Land) advising 2 units FFP prior to knee surgery Degenerative disc disease Diastolic dysfunction With prior episodes of acute diastolic heart failure/volume overload occurring in the setting of uncontrolled hypertension as well as high-dose gabapentin and amlodipine therapies. Factor X deficiency Follows with Dr. Land ([facility] hematology). Perioperative recommendations provided. GERD (gastroesophageal reflux disease) Gout History of cervical fracture Remote hx 20+ years ago approximately at C3, managed without surgical interv ention, no ROM limitations per pt History of kidney stones History of migraine [place] (hard of hearing) Hyperlipidemia Hypertension Leg edema monitoring with cardiology- occasional mostly around ankles, on diuretics Morbid obesity Osteoarthritis Surgical History (Updated 12/06/22 @ 20:22 by Linda Holt PA-C) H/O arthroscopy of shoulder Right Left shoulder scope, subacromial decompression (12/16/21): Grade view 4 with DL > Glidescope + PNB (see record for further details) at [facility]. History of anesthesia reaction Admitted overnight following colonoscopy 06/2021 [facility] syncopal episodes Seen by PCP 07/20/21 for hospital follow up- no issues on additional work up in hospital per PCP note- vitals stable during admission History of arthroscopy of right knee History of cardiac cath last done 08/2022 [facility] - no stents 2000 - no stents History of colonoscopy History of cystoscopy W/ STONE EXTRACTION History of lumbar discectomy Nausea and vomiting after administration of anesthetic agent S/P epidural steroid injection Lumbar and cervical S/P lumbar laminectomy S/P tonsillectomy and adenoidectomy Family History Other Heart disease No family history of adverse response to anesthesia Stroke Social History Smoking Status: Former smoker Tobacco Type: Cigarettes Smoking End Date: 1982; Second Hand Exposure: No; Do You Dip or Chew Tobacco: No; Tobacco Cessation Education Requested by Patient: No Hx Alcohol Use: Yes Alcohol type: hard liquor Hx Substance Use: No Preferred Language: Belarusian Communication Ability: Effective Hash Slinger Required: No Beliefs That Will Affect Care: None Current Living Situation: Spouse Other Information That Helps Us Care for You: No Feels Safe at Home: Yes Safety Concerns: Feels Safe At This Time Assistive Devices: Cane, Raised Toilet Seat and Walker Physical Exam Physical Exam: Alert, cooperative, pain seems to be recently well controlled currently. Vital signs are stable General examination is unremarkable. Right leg is extensively wrapped in Miller light bandage with a drain tube in place showing bloody material. Results & Data Vital Signs (Past 12 Hours) Vital Signs Temp Pulse Pulse Resp BP Pulse Ox O2 Del Method 12/07/22 19:07 36.6 C 78 20 154/63 H 97 Room Air 12/07/22 15:21 82 12/07/22 12:00 36.8 C 69 18 130/75 95 Room Air PG Care Time/CCT Total # of Minutes Spent Total Time Spent with Patient: Total time spent is greater than 50% in coordination of care (as documented) at patient's floor/unit and/or counseling patient: [place] [address] IN/OBS CONSULT LVL 4,60M Patient Type New History Problem Focused Exam Problem Focused Medical Decision Making High Complexity Diagnoses Factor X deficiency D68.2 Time Spent (min) 60
[2022-12-08] MEDS: MoRPHine SULFATE 4 MG/ML 1 ML CARP\\VIAL IV PRN ×3 (03:33→12:23)
[2022-12-08] MEDS: HYDROcodone/ACETAMINOPHEN 10/325 TAB PO PRN (05:46)
[2022-12-08 06:12] LABS: Basophils # (auto) 0.04 K/uL (0-0.2); Basophils % (auto) 0.3 %; Eosinophils # (auto) 0.05 K/uL (0-0.50); Eosinophils % (auto) 0.4 %; Hematocrit (blood only) 34.5 % (42.0-52.0); Hemoglobin 11.7 g/dl (14.0-18.0); Immature Granulocytes # (auto) 0.05 K/uL (0.01-0.20); Immature Granulocytes % (auto) 0.4 %; Lymphocytes # (auto) 1.61 K/uL (1.2-3.4); Lymphocytes % (auto) 13.1 %; Mean Corpuscular Hgb Conc 33.9 g/dL (32.0-36.0); Mean Corpuscular Volume 88.5 fL (80.0-100.0); Mean Platelet Volume 10.8 fL (9.4-12.4); Monocytes # (auto) 1.24 K/uL (0.11-0.59); Monocytes % (auto) 10.1 %; Neutrophils # (auto) 9.32 K/uL (1.40-6.50); Neutrophils % (auto) 75.7 %; Platelet Count 214 K/uL (130-400); RDW Coefficient of Variation 13.4 % (11.5-14.5); RDW Standard Deviation 43.4 fL (36.4-46.3); White Blood Count 12.31 K/ul (4.8-10.8)
[2022-12-08 06:27] LABS: Calcium 8.4 mg/dl (8.6-10.3); Creatinine Clr Calc Pharmacy 101.1 ml/min; Est GFR (African American) 68.3 ml/min; Est GFR (Non-African American) 58.9 ml/min; Potassium 4.3 mmol/L (3.5-5.1)
[2022-12-08 06:42] LABS: INR 1.3 (0.9-1.1); Prothrombin Time 13.9 Seconds (9.0-12.0)
[2022-12-08] MEDS: DOCUSATE SODIUM 100 MG CAP PO SCH ×2 (08:29→20:27)
[2022-12-08] MEDS: allopurinoL 100 MG TAB PO SCH (08:29)
[2022-12-08] MEDS: MULTIVITAMIN TAB PO SCH (08:29)
[2022-12-08] MEDS: FUROSEMIDE 40 MG TAB PO SCH (08:29)
[2022-12-08] MEDS: TAMSULOSIN HCL 0.4 MG CAP PO SCH (08:29)
[2022-12-08] MEDS: PANTOprazole 40 MG TAB PO SCH (08:29)
[2022-12-08] MEDS: SPIRONOLACTONE 12.5 MG TAB PO SCH (08:32)
[2022-12-08] MEDS: amLODIPine BESYLATE 5 MG TAB PO SCH (08:32)
--- NOTE | 2022-12-08 08:36 | Orthopedic Progress Note ---
Date of Service December 08, 2022 Assessment & Plan (1) Arthritis of right knee: Plan: Postop day 2 status post right total knee arthroplasty. PT/OT protocols. Weightbearing as tolerated right lower extremity. DVT prophylaxis-aspirin is on hold at this time. Dr. Brothers's office is contacting Dr. Land's office in [place] for discussion on anticoagulation. Pain management -patient has just been seen by the pain management team. Await their input. Continue morphine sulfate IV and hydrocodone until recommendations placed. Factor X deficiency -appreciate hematology input. In the process of contacting hematology from [place] to discuss with the patient's implementation analyst about anticoagulation and NSaid use. Continue dressing and drain for now. DC planning-patient is planning for home health services upon discharge. Admission and Anticipated Discharge Date Admission Date: December 06, 2022 Subjective Postop day 2 Patient sitting in his chair at the bedside. States that pain management team was just in interviewing him and will be making some of the recommendations and plans. He is currently using the hydrocodone and morphine every 4 hours. He is stating he is having moderate pain at this time and he is getting ready to call for his 1 pain medication. He otherwise looks fairly comfortable but has some degree of stress whenever he is trying to do range of motion of the right knee. No other complaints at this time. Denies shortness of breath, chest pain, lightheadedness. Denies calf tenderness. Physical Exam Physical Exam: Dressings are clean, dry, and intact. Calves are soft nontender. Neurovascular intact. Toes are mobile. Hemovac drainage this morning was 80 cc. This appears to be slowing down. Results & Data Vital Signs (Past 12 Hours) Vital Signs Temp Pulse Pulse Resp BP Pulse Ox O2 Del Method 12/08/22 08:18 36.9 C 73 18 132/67 93 Room Air 12/08/22 02:50 36.7 C 73 20 149/75 H 94 Room Air 12/07/22 23:59 80 12/07/22 23:08 36.8 C 75 20 144/75 H 94 Room Air Laboratory Results 12/08/22 12/08/22 12/08/22 Range/Units 05:32 05:32 05:32 WBC 12.31 H (4.8-10.8) K/ul RBC 3.90 L (4.70-6.10) M/uL Hgb 11.7 L (14.0-18.0) g/dl Hct 34.5 L (42.0-52.0) % MCV 88.5 (80.0-100.0) fL MCH 30.0 (25.0-34.0) pg MCHC 33.9 (32.0-36.0) g/dL RDW Std Deviation 43.4 (36.4-46.3) fL RDW Coeff of Shirlene 13.4 (11.5-14.5) % Plt Count 214 (130-400) K/uL MPV 10.8 (9.4-12.4) fL Immature Gran % (Auto) 0.4 % Neut % (Auto) 75.7 % Lymph % (Auto) 13.1 % [place] % (Auto) 10.1 % Eos % (Auto) 0.4 % Baso % (Auto) 0.3 % Neut # (Auto) 9.32 H (1.40-6.50) K/uL Lymph # (Auto) 1.61 (1.2-3.4) K/uL [place] # (Auto) 1.24 H (0.11-0.59) K/uL Eos # (Auto) 0.05 (0-0.50) K/uL Baso # (Auto) 0.04 (0-0.2) K/uL Immature Gran # (Auto) 0.05 (0.01-0.20) K/uL PT 13.9 H (9.0-12.0) Seconds INR 1.3 H (0.9-1.1) Sodium 136 (136-145) mmol/L Potassium 4.3 (3.5-5.1) mmol/L Chloride 105 (98-107) mmol/L Carbon Dioxide 25 (21-32) mmol/L Anion Gap 6 (3-11) BUN 28 H (6-23) mg/dl Creatinine 1.27 (0.6-1.4) mg/dl Est Cr Clr Drug Dosing 101.1 ml/min Est GFR ( Amer) 68.3 ml/min Est GFR (Non-Af Amer) 58.9 ml/min BUN/Creatinine Ratio 22.0 H (10-20) Glucose 127 H (70-99(Fasting)) mg/dl Calcium 8.4 L (8.6-10.3) mg/dl 12/07/22 Range/Units 08:55 WBC (4.8-10.8) K/ul RBC (4.70-6.10) M/uL Hgb (14.0-18.0) g/dl Hct (42.0-52.0) % MCV (80.0-100.0) fL MCH (25.0-34.0) pg MCHC (32.0-36.0) g/dL RDW Std Deviation (36.4-46.3) fL RDW Coeff of Shirlene (11.5-14.5) % Plt Count (130-400) K/uL MPV (9.4-12.4) fL Immature Gran % (Auto) % Neut % (Auto) % Lymph % (Auto) % [place] % (Auto) % Eos % (Auto) % Baso % (Auto) % Neut # (Auto) (1.40-6.50) K/uL Lymph # (Auto) (1.2-3.4) K/uL [place] # (Auto) (0.11-0.59) K/uL Eos # (Auto) (0-0.50) K/uL Baso # (Auto) (0-0.2) K/uL Immature Gran # (Auto) (0.01-0.20) K/uL PT 14.3 H (9.0-12.0) Seconds INR 1.4 H (0.9-1.1) Sodium (136-145) mmol/L Potassium (3.5-5.1) mmol/L Chloride (98-107) mmol/L Carbon Dioxide (21-32) mmol/L Anion Gap (3-11) BUN (6-23) mg/dl Creatinine (0.6-1.4) mg/dl Est Cr Clr Drug Dosing ml/min Est GFR ( Amer) ml/min Est GFR (Non-Af Amer) ml/min BUN/Creatinine Ratio (10-20) Glucose (70-99(Fasting)) mg/dl Calcium (8.6-10.3) mg/dl
--- NOTE | 2022-12-08 08:54 | Pain Management Consultation ---
Date of Consultation December 08, 2022 Assessment & Plan (1) S/P TKR (total knee replacement): (2) Factor X deficiency: (3) Morbid obesity: Plan 1. Hydrocodone has been discontinued. 2. I have ordered him Nucynta 50mg IR x 4 hours to see if it may provide improved pain relief. The dose may need further increased to 75mg pending his response. 3. If Nucynta is not effective then consider switching to MS IR 15mg x 4 hours for pain. 4. Discussed limiting use of IV Morphine in preparation for discharge. 5. Continue to work on physical therapy, stretches, and exercises. History of Present Illness Reason for Consultation: Post op pain Attending Physician: José Miguel Brothers DO History of Present Illness Mr. Rankin is a 67 year old male that had a right knee replacement on 12/06/22 and continues to experience significant 10/10 pain. He does have a significant history of uncontrolled post operative pain to which he has required prolonged hospital stays. Patient has previously been on opioids including MS Contin 15mg, Hydrocodone 10/325mg, and Hydromorphone 2mg for other surgeries. MS Contin was helpful postoperatively for prior shoulder surgery. He has been taking Hydrocodone 10/325mg sparingly (last refilled 08/2022) for chronic right knee pain which was helpful but not effective postoperatively. Hydromorphone was not effective. Currently he is ordered Hydrocodone 10/325mg x 4 hours (used 3 x in 24 hours) and IV 4mg Morphine x 4 hours (used 4 x in 24 hours). Patient states that the Hydrocodone has not provided any pain relief. The Morphine is helpful for about an hour at a time. He has been working with physical therapy and doing stationary exercises. Has not been walking due to concern of bleeding with Factor X deficiency. No constipation, dizziness, drowsiness, confusion. Case discussed with Dr. Taryn Jefferson Allergies Allergy/AdvReac Type Severity Reaction Status Date / Time mometasone furoate Allergy Intermediate Nasal Verified 12/06/22 10:12 irritation, "scabbed up" oxycodone AdvReac Severe Severely Verified 12/06/22 10:12 "sick" Home Medications Medication Instructions Recorded Confirmed Type aspirin 81 mg tablet,delayed 81 mg PO MOWEFR@0900 10/22/19 12/06/22 History release omeprazole magnesium 20 mg 20 mg PO QPM 10/22/19 12/06/22 History tablet,delayed release (Prilosec OTC) amlodipine 5 mg tablet 5 mg PO QAM 10/24/19 12/06/22 History furosemide 20 mg tablet (Lasix) 40 mg PO QAM 09/07/20 12/06/22 History losartan 100 mg tablet 100 mg PO QPM 09/07/20 12/06/22 History tamsulosin 0.4 mg capsule (Flomax) 0.4 mg PO QAM 07/01/21 12/06/22 History allopurinol 100 mg tablet 100 mg PO QAM 12/01/21 12/06/22 History azelastine 137 mcg (0.1 %) nasal 2 spray intranasal QPM 12/01/21 12/06/22 History spray aerosol spironolactone 25 mg tablet 12.5 mg PO DAILY 12/06/22 12/06/22 History (Aldactone) Patient History Medical History Abnormal coagulation profile "Prolonged PT and PTT, all factor levels are normal, defect corrects with 50:50 mixing study, all invasive procedures should correct with 2 units FFP, test PT & act PTT after infusion to confirm correction. " Chronic back pain Chronic cough Unchanged x several months, suspected d/t remote RSV infection but no definitive diagnosis, no worsening issues Chronic neck pain Claustrophobia Coagulation factor disorder Had [facility] heme workup 11/08/19 for elevated PT/PTT prior to shoulder arthroscopy. Labs were repeated, as well as lupus anticoagulant. All were elevated, and [facility] recommended FFP prior to surgery. Patient received 2 units. Received recommendations from jean (Dr. Land) advising 2 units FFP prior to knee surgery Degenerative disc disease Diastolic dysfunction With prior episodes of acute diastolic heart failure/volume overload occurring in the setting of uncontrolled hypertension as well as high-dose gabapentin and amlodipine therapies. Factor X deficiency Follows with Dr. Land ([facility] hematology). Perioperative recommendations provided. GERD (gastroesophageal reflux disease) Gout History of cervical fracture Remote hx 20+ years ago approximately at C3, managed without surgical intervention, no ROM limitations per pt History of kidney stones History of migraine [place] (hard of hearing) Hyperlipidemia Hypertension Leg edema monitoring with cardiology- occasional mostly around ankles, on diuretics Morbid obesity Osteoarthritis Surgical History H/O arthroscopy of shoulder Right Left shoulder scope, subacromial decompression (12/16/21): Grade view 4 with DL > Glidescope + PNB (see record for further details) at [facility]. History of anesthesia reaction Admitted overnight following colonoscopy 06/2021 [facility] syncopal episodes Seen by PCP 07/20/21 for hospital follow up- no issues on additional work up in hospital per PCP note- vitals stable during admission History of arthroscopy of right knee History of cardiac cath last done 08/2022 [facility] [place] - no stents 2000 - no stents History of colonoscopy History of cystoscopy W/ STONE EXTRACTION History of lumbar discectomy Nausea and vomiting after administration of anesthetic agent S/P epidural steroid injection Lumbar and cervical S/P lumbar laminectomy S/P tonsillectomy and adenoidectomy Family History Other Heart disease No family history of adverse response to anesthesia Stroke Social History Smoking Status: Former smoker Tobacco Type: Cigarettes Smoking End Date: 1982; Second Hand Exposure: No; Do You Dip or Chew Tobacco: No; Tobacco Cessation Education Requested by Patient: No Hx Alcohol Use: Yes Alcohol type: hard liquor Hx Substance Use: No Preferred Language: Vietnamese Communication Ability: Effective Inspector Dials Required: No Beliefs That Will Affect Care: None Current Living Situation: Spouse Other Information That Helps Us Care for You: No Feels Safe at Home: Yes Safety Concerns: Feels Safe At This Time Assistive Devices: Cane, Raised Toilet Seat and Walker Physical Exam Physical Exam: GENERAL: This is a morbidly obese 67 year old male that does not appear in any acute distress. Sitting in hospital chair eating breakfast. HEAD/FACE: Normocephalic and atraumatic. EYES: No drainage or conjunctival injection. ENT: Nose without bleeding or discharge. Oral mucosa moist. NECK: Full ROM without apparent pain. No swelling or masses noted. RESPIRATORY: Patient with unlabored breathing. No signs of respiratory distress. CHEST/AXILLA: Chest movement symmetrical. No deformities noted. SKIN: [place], warm and dry. No rash noted. MS/EXTREMITY: + right knee is bandage, not observed NEURO: Alert and appears oriented. Speech is fluent. Cranial Nerves are grossly intact. PSYCH: Alert, pleasant, affect is calm
[2022-12-08] MEDS: TAPENTADOL HCL 50 MG TAB PO PRN ×3 (14:07→22:14)
--- NOTE | 2022-12-08 17:15 | Hospitalist Progress Note ---
Date of Service December 08, 2022 Assessment & Plan (1) S/P TKR (total knee replacement): (2) Factor X deficiency: (3) Morbid obesity: (4) Hypertension: (5) Hyperlipidemia: Plan Per previous hospitalist notes with addendum: This is a 67-year-old male with PMH of factor X deficiency, hypertension, dyslipidemia, history of tobacco use and other medical problems listed below who is POD#0 s/p Right Total Knee Arthroplasty(Right) by Dr. Brothers. S/p R TKA POD#2 s/p Right Total Knee Arthroplasty(Right) by Dr. Brothers. Hg 12 --> 11 monitor H&H Nucynta added to Morphine IV PRN PT/OT eval Aspirin for DVT prophylaxis to be resumed tomorrow Factor X deficiency [facility]. 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 Recommend lifestyle modification discussions during admission when appropriate Suspected DENISE Sleep study never performed given severe claustrophobia. Monitor O2 and consider supplemental O2/bipap as needed PCP: Isak Dispo: Per primary service Admission and Anticipated Discharge Date Admission Date: December 06, 2022 Subjective ff up for R TKA, etc seen resting in bed, sitting up, watching TV in good spirits states he is still having significant pain, a little better than yesterday no chest pain, dyspnea, palpitations, dizziness no other symptoms Review of Systems Review of Systems: all noted and negative except for above Physical Exam Physical Exam: General- oriented x 3, not in distress, speaks in sentences with no effort or accessory muscle use Eyes- anicteric Neck- no JVD Lungs- clear BS bilaterally, no rales/wheezes Heart- normal rate, regular rhythm; no murmurs Abdomen- normal bowel sounds, nondistended, soft, non tender Extremities- no pretibial edema, no calf tenderness R knee: dressing in place, drain in place with serosanguinous output Neuro- alert, oriented x 3; no gross focal neurologic deficits Skin- warm & dry Results & Data Results & Data Vital Signs (Past 12 Hours) Vital Signs Temp Pulse Pulse Resp BP Pulse Ox O2 Del Method 03/23/23 15:50 81 12/08/22 15:31 36.7 C 73 20 154/69 H 94 Room Air 12/08/22 11:43 36.6 C 75 18 117/67 97 Room Air 12/08/22 08:00 67 12/08/22 08:18 36.9 C 73 18 132/67 93 Room Air all noted and reviewed including below
[2022-12-08] MEDS: POLYETHYLENE (MIRALAX) 17 GM PACK PO SCH (17:41)
[2022-12-08] MEDS: SENNA 8.6 MG TAB PO SCH (20:26)
[2022-12-08] MEDS: LOSARTAN POTASSIUM 50 MG TAB PO SCH (20:27)
[2022-12-09] MEDS: MoRPHine SULFATE 4 MG/ML 1 ML CARP\\VIAL IV PRN ×2 (02:42→06:54)
--- NOTE | 2022-12-09 05:55 | Hospitalist Progress Note ---
Date of Service December 09, 2022 Assessment & Plan (1) Factor X deficiency: Plan Seems to have stabilized with respect to blood loss. As before, would strongly encourage a hemophilia clinic review shortly after discharge for both short-term confirmation of a plan to balance prevention of bleeding and thrombosis risks but also for more specific algorithm of support for future operative or other major interventions. Please see more complete previous suggestions incorporated into the initial consultation We will sign off and defer to the [facility] team for coordination of outpatient hematology management Admission and Anticipated Discharge Date Admission Date: December 06, 2022 Subjective Stable with less blood from drain Physical Exam Physical Exam: VSS No change Results & Data Results & Data Vital Signs (Past 12 Hours) Vital Signs Temp Pulse Pulse Resp BP Pulse Ox O2 Del Method 12/09/22 02:33 37 C 69 18 134/65 91 Room Air 12/08/22 23:41 74 12/08/22 22:55 36.7 C 77 17 134/77 92 Room Air 12/08/22 19:16 36.9 C 73 18 123/84 94 Room Air PG Care Time/CCT Total # of Minutes Spent Total Time Spent with Patient: Total time spent is greater than 50% in coordination of care (as documented) at patient's floor/unit and/or counseling patient: Coding Level of Care Code None Diagnoses Factor X deficiency D68.2
[2022-12-09 06:37] LABS: Hematocrit (blood only) 33.6 % (42.0-52.0); Hemoglobin 11.2 g/dl (14.0-18.0); Mean Corpuscular Hemoglobin 29.6 pg (25.0-34.0); Mean Corpuscular Hgb Conc 33.3 g/dL (32.0-36.0); Mean Corpuscular Volume 88.9 fL (80.0-100.0); Mean Platelet Volume 10.4 fL (9.4-12.4); Platelet Count 204 K/uL (130-400); RDW Coefficient of Variation 13.2 % (11.5-14.5); RDW Standard Deviation 42.8 fL (36.4-46.3); Red Blood Count 3.78 M/uL (4.70-6.10); White Blood Count 9.56 K/ul (4.8-10.8)
[2022-12-09 07:19] LABS: INR 1.3 (0.9-1.1); Partial Thromboplastin Ratio 1.3; Partial Thromboplastin Time 35.6 Seconds (21.0-31.0); Prothrombin Time 14.1 Seconds (9.0-12.0)
[2022-12-09 07:23] LABS: BUN Creatinine Ratio 20.8 (10-20); Calcium 8.5 mg/dl (8.6-10.3); Est GFR (African American) 73.1 ml/min; Est GFR (Non-African American) 63.1 ml/min; Potassium 4.2 mmol/L (3.5-5.1)
[2022-12-09] MEDS: DOCUSATE SODIUM 100 MG CAP PO SCH ×2 (08:36→20:30)
[2022-12-09] MEDS: ASPIRIN 81 MG ECTAB PO SCH (08:36)
[2022-12-09] MEDS: SPIRONOLACTONE 12.5 MG TAB PO SCH (08:37)
[2022-12-09] MEDS: allopurinoL 100 MG TAB PO SCH (08:37)
[2022-12-09] MEDS: amLODIPine BESYLATE 5 MG TAB PO SCH (08:37)
[2022-12-09] MEDS: MULTIVITAMIN TAB PO SCH (08:37)
[2022-12-09] MEDS: PANTOprazole 40 MG TAB PO SCH (08:37)
[2022-12-09] MEDS: POLYETHYLENE (MIRALAX) 17 GM PACK PO SCH (08:38)
[2022-12-09] MEDS: FUROSEMIDE 40 MG TAB PO SCH (08:38)
[2022-12-09] MEDS: TAMSULOSIN HCL 0.4 MG CAP PO SCH (08:38)
[2022-12-09] MEDS: TAPENTADOL HCL 50 MG TAB PO PRN ×5 (08:45→22:07)
--- NOTE | 2022-12-09 09:31 | Orthopedic Progress Note ---
Date of Service December 09, 2022 Assessment & Plan (1) Arthritis of right knee: Plan: Postop day 3 status post right total knee arthroplasty. PT/OT protocols. Weightbearing as tolerated right lower extremity. DVT prophylaxis-aspirin restarted. Dr Brothers' office reached out to pt's PCP and Cardiology to discuss dvt prophylaxis. Plan to restart patients ASA 81mg M,W,F Pain management -patient has just been seen by the pain management team. Started on Nucynta 50mg po q4h. I have spoken to Ashanti ROBINS about pt still using Morphine IV for breakthrough. We will bump up his Nucynta to 2 tabs po q4hrs prn. She will stop by to see patient later this afternoon to see how he is doing. Factor X deficiency -appreciate hematology input. They have now signed off. Plan to have patient reconnect with Hemetology post dc. DC planning-patient is planning for home health services upon discharge. Admission and Anticipated Discharge Date Admission Date: December 06, 2022 Subjective POD 3 Pt lying in bed awake, alert. c/o pain in the knee but still able to make it through his PT session. States the Nucynta helped a little better than the Hydrocodone but still having breakthrough. He has needed the Morphine IV a few times to help with pain control. Pt feels the pain is still not controlled enough to go home. No other complaints this AM. Other than pain control issues, he feels well. Physical Exam Physical Exam: Dressings removed. Saul dressing intact. Hemovac removed without difficulty. No overt drainage from the drain site. Knee swollen consistent with surgery. Calves, soft, NT. NV intact. Results & Data Vital Signs (Past 12 Hours) Vital Signs Temp Pulse Pulse Resp BP Pulse Ox O2 Del Method 12/09/22 08:00 36.8 C 70 20 110/57 L 97 Room Air 12/09/22 02:33 37 C 69 18 134/65 91 Room Air 12/08/22 23:41 74 12/08/22 22:55 36.7 C 77 17 134/77 92 Room Air Laboratory Results 12/09/22 12/09/22 12/09/22 Range/Units 05:56 05:56 05:56 WBC 9.56 (4.8-10.8) K/ul RBC 3.78 L (4.70-6.10) M/uL Hgb 11.2 L (14.0-18.0) g/dl Hct 33.6 L (42.0-52.0) % MCV 88.9 (80.0-100.0) fL MCH 29.6 (25.0-34.0) pg MCHC 33.3 (32.0-36.0) g/dL RDW Std Deviation 42.8 (36.4-46.3) fL RDW Coeff of Shirlene 13.2 (11.5-14.5) % Plt Count 204 (130-400) K/uL MPV 10.4 (9.4-12.4) fL PT 14.1 H (9.0-12.0) Seconds INR 1.3 H (0.9-1.1) APTT 35.6 H (21.0-31.0) Seconds PTT Ratio 1.3 Sodium 135 L (136-145) mmol/L Potassium 4.2 (3.5-5.1) mmol/L Chloride 102 (98-107) mmol/L Carbon Dioxide 27 (21-32) mmol/L Anion Gap 6 (3-11) BUN 25 H (6-23) mg/dl Creatinine 1.20 (0.6-1.4) mg/dl Est Cr Clr Drug Dosing 107.0 ml/min Est GFR ( Amer) 73.1 ml/min Est GFR (Non-Af Amer) 63.1 ml/min BUN/Creatinine Ratio 20.8 H (10-20) Glucose 94 (70-99(Fasting)) mg/dl Calcium 8.5 L (8.6-10.3) mg/dl
--- NOTE | 2022-12-09 11:52 | Pain Management Progress Note ---
Date of Service December 09, 2022 Assessment & Plan (1) S/P TKR (total knee replacement): (2) Factor X deficiency: (3) Morbid obesity: Plan 1. Nucynta has been increased to 100mg x 4 hours PRN pain. 2. IV Morphine has been left in place in case of breakthrough pain. He has been made aware to limit the use of IV Morphine as he cannot require IV pain medication and be discharged to home. He is understanding. 3. Continue to work on physical therapy, stretches, and exercises. Will sign off on the patient. Please contact with any questions or concerns. Admission and Anticipated Discharge Date Admission Date: December 09, 2022 Subjective Mr. Rankin was switched from Hydrocodone 10/325mg to Nucynta 50mg x 4 hours for post operative pain relief yesterday which he states has been more effective but continues to have 6-8/10 pain in the right knee. He did resort to taking the Morphine IV throughout the evening. He does continue with physical therapy and he is doing the exercises as instructed. He was able to have a bowel movement this morning. No side effects to the Nucynta - no drowsiness, dizziness, lightheadedness, or confusion. Case discussed with Dr. Taryn Jefferson Physical Exam Physical Exam: GENERAL: This is a morbidly obese 67 year old male that does not appear in any acute distress. Sitting in hospital bed eating lunch. HEAD/FACE: Normocephalic and atraumatic. EYES: No drainage or conjunctival injection. ENT: Nose without bleeding or discharge. Oral mucosa moist. NECK: Full ROM without apparent pain. No swelling or masses noted. RESPIRATORY: Patient with unlabored breathing. No signs of respiratory distress. CHEST/AXILLA: Chest movement symmetrical. No deformities noted. SKIN: [place], warm and dry. No rash noted. MS/EXTREMITY: + right knee is bandage, not observed NEURO: Alert and appears oriented. Speech is fluent. Cranial Nerves are grossly intact. PSYCH: Alert, pleasant, affect is calm
--- NOTE | 2022-12-09 16:29 | Hospitalist Progress Note ---
Date of Service December 09, 2022 Assessment & Plan (1) S/P TKR (total knee replacement): (2) Factor X deficiency: (3) Morbid obesity: (4) Hypertension: (5) Hyperlipidemia: Plan Per previous hospitalist notes with addendum: This is a 67-year-old male with PMH of factor X deficiency, hypertension, dyslipidemia, history of tobacco use and other medical problems listed below who is POD#0 s/p Right Total Knee Arthroplasty(Right) by Dr. Brothers. S/p R TKA POD#2 s/p Right Total Knee Arthroplasty(Right) by Dr. Brothers. Hg 12 --> stable at 11 monitor H&H Nucynta added to Morphine IV PRN continue pain management PT/OT eval Aspirin daily for DVT prophylaxis Factor X deficiency Follows with Dr. Butler [facility] heme/onc. 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 Recommend lifestyle modification discussions during admission when appropriate Suspected DENISE Sleep study never performed given severe claustrophobia. Monitor O2 and consider supplemental O2/bipap as needed PCP: Isak Dispo: Per primary service Admission and Anticipated Discharge Date Admission Date: December 09, 2022 Subjective ff up for l knee surgery, etc seen resting in bed, not in distress still having significant knee pain, increased Nucynta dose helping no chest pain, dyspnea, palpitations, dizziness no other symptoms Review of Systems Review of Systems: all noted and negative except for above Physical Exam Physical Exam: General- oriented x 3, not in distress, speaks in sentences with no effort or accessory muscle use Eyes- anicteric Neck- no JVD Lungs- clear BS bilaterally, no rales/wheezes Heart- normal rate, regular rhythm; no murmurs Abdomen- normal bowel sounds, nondistended, soft, nontender Extremities- no pretibial edema, no calf tenderness L knee: moderate edema, mild erythema Neuro- alert, oriented x 3; no gross focal neurologic deficits Skin- warm & dry Results & Data Results & Data Vital Signs (Past 12 Hours) Vital Signs Temp Pulse Resp BP Pulse Ox O2 Del Method 12/09/22 12:00 36.8 C 77 22 121/69 97 Room Air 12/09/22 08:00 36.8 C 70 20 110/57 L 97 Room Air all noted and reviewed including below
[2022-12-09] MEDS ORDERED: TAPENTADOL HCL 50 MG TAB PO PRN (16:44)
[2022-12-09] MEDS: LOSARTAN POTASSIUM 50 MG TAB PO SCH (20:31)
[2022-12-09] MEDS: SENNA 8.6 MG TAB PO SCH (20:32)
[2022-12-10] MEDS: TAPENTADOL HCL 50 MG TAB PO PRN ×5 (02:36→21:13)
[2022-12-10] MEDS: TAMSULOSIN HCL 0.4 MG CAP PO SCH (08:38)
[2022-12-10] MEDS: SPIRONOLACTONE 12.5 MG TAB PO SCH (08:39)
[2022-12-10] MEDS: PANTOprazole 40 MG TAB PO SCH (08:39)
[2022-12-10] MEDS: allopurinoL 100 MG TAB PO SCH (08:39)
[2022-12-10] MEDS: MULTIVITAMIN TAB PO SCH (08:39)
[2022-12-10] MEDS: DOCUSATE SODIUM 100 MG CAP PO SCH ×2 (08:39→21:12)
[2022-12-10] MEDS: ASPIRIN 81 MG ECTAB PO SCH (08:40)
[2022-12-10] MEDS: amLODIPine BESYLATE 5 MG TAB PO SCH (08:41)
[2022-12-10] MEDS: FUROSEMIDE 40 MG TAB PO SCH (08:41)
[2022-12-10] MEDS: POLYETHYLENE (MIRALAX) 17 GM PACK PO SCH (08:41)
--- NOTE | 2022-12-10 08:46 | Orthopedic Progress Note ---
Date of Service December 10, 2022 Assessment & Plan (1) S/P TKR (total knee replacement): Plan: 67 yo morbidly obese male stable s/p right TKA, difficulty with pain control 1. Med management 2. DVT prophylaxis- ASA, SCDs; pt with h/o Factor X deficiency 3. PT/OT 4. D/C planning- plan for d/c home today with Admission and Anticipated Discharge Date Admission Date: December 09, 2022 Subjective Pt sitting in chair bedside, states pain controlled improved with Nucynta but still moderate in nature, "knee feels tight" Physical Exam Physical Exam: Prevena dressing in place, toes mobile, NVI, moderate swelling right LE, calf nontender Results & Data Vital Signs (Past 12 Hours) Vital Signs Temp Pulse Resp BP Pulse Ox O2 Del Method 12/10/22 08:37 37.1 C 77 18 138/72 95 Room Air
--- NOTE | 2022-12-10 14:58 | Hospitalist Progress Note ---
Date of Service December 10, 2022 Assessment & Plan (1) S/P TKR (total knee replacement): (2) Factor X deficiency: (3) Morbid obesity: (4) Hypertension: (5) Hyperlipidemia: Plan Per previous hospitalist notes with addendum: This is a 67-year-old male with PMH of factor X deficiency, hypertension, dyslipidemia, history of tobacco use and other medical problems listed below who is POD#0 s/p Right Total Knee Arthroplasty(Right) by Dr. Brothers. S/p R TKA POD#2 s/p Right Total Knee Arthroplasty(Right) by Dr. Brothers. Hg 12 --> stable at 11 monitor H&H Nucynta added to Morphine IV PRN pain improving continue pain management PT/OT eval Aspirin daily for DVT prophylaxis Factor X deficiency [facility]. Has received 2 units of FFP prior to surgery access specialist on board FFP if patient develops unusual bleeding Hypertension Continue amlodipine,losartan BPH Continue Flomax Diastolic congestive heart failure Euvolemic Continue Lasix and spironolactone H/O Dyslipidemia Poor tolerance to statins Morbid obesity BMI 44. Recommend lifestyle modification discussions during admission when appropriate Suspected DENISE Sleep study never performed given severe claustrophobia. Monitor O2 and consider supplemental O2/bipap as needed PCP: Isak Dispo: Per primary service Admission and Anticipated Discharge Date Admission Date: December 09, 2022 Subjective ff up for s/p TKA, etc seen resting in bed, comfortable states knee pain seems to be improving no bleeding noted no chest pain, dyspnea, palpitations, dizziness no other symptoms Review of Systems Review of Systems: all noted and negative except for above Physical Exam Physical Exam: General- oriented x 3, not in distress, speaks in sentences with no effort or accessory muscle use Eyes- anicteric Neck- no JVD Lungs- clear breath sounds bilaterally, no rales/wheezes Heart- normal rate, regular rhythm; no murmurs Abdomen- normal bowel sounds, nondistended, soft, nontender Extremities- no pretibial edema, no calf tenderness L knee; dressing in place, no bleeding noted Neuro- alert, oriented x 3; no gross focal neurologic deficits Skin- warm & dry Results & Data Results & Data Vital Signs (Past 12 Hours) Vital Signs Temp Pulse Resp BP Pulse Ox O2 Del Method 12/10/22 08:37 37.1 C 77 18 138/72 95 Room Air
[2022-12-10] MEDS: SENNA 8.6 MG TAB PO SCH (21:12)
[2022-12-10] MEDS: LOSARTAN POTASSIUM 50 MG TAB PO SCH (21:12)
[2022-12-11] MEDS: TAPENTADOL HCL 50 MG TAB PO PRN ×3 (03:18→12:13)
[2022-12-11] MEDS: PANTOprazole 40 MG TAB PO SCH (09:40)
[2022-12-11] MEDS: FUROSEMIDE 40 MG TAB PO SCH (09:40)
[2022-12-11] MEDS: amLODIPine BESYLATE 5 MG TAB PO SCH (09:40)
[2022-12-11] MEDS: allopurinoL 100 MG TAB PO SCH (09:40)
[2022-12-11] MEDS: TAMSULOSIN HCL 0.4 MG CAP PO SCH (09:41)
[2022-12-11] MEDS: POLYETHYLENE (MIRALAX) 17 GM PACK PO SCH (09:41)
[2022-12-11] MEDS: DOCUSATE SODIUM 100 MG CAP PO SCH (09:41)
[2022-12-11] MEDS: MULTIVITAMIN TAB PO SCH (09:41)
[2022-12-11] MEDS: SPIRONOLACTONE 12.5 MG TAB PO SCH (09:41)
[2022-12-11] MEDS: ASPIRIN 81 MG ECTAB PO SCH (09:42)
--- NOTE | 2022-12-11 11:11 | Orthopedic Progress Note ---
Date of Service December 11, 2022 Assessment & Plan (1) S/P TKR (total knee replacement): Plan: 67 yo morbidly obese male stable s/p right TKA, difficulty with pain control 1. Med management 2. DVT prophylaxis- ASA, SCDs; pt with h/o Factor X deficiency 3. PT/OT 4. D/C planning- plan for d/c home today with Admission and Anticipated Discharge Date Admission Date: December 09, 2022 Subjective Patient seen and examined, no acute events overnight. Pain reasonably controlled. Has been out of bed ambulating. Physical Exam Constitutional: General: No acute distress, alert and oriented to person place time Musculoskeletal: Right lower extremity -Dressing clean dry and intact - SILT s/spn/dpn/t/s - Fires ta/ehl/gsc + dp/pt Results & Data Vital Signs (Past 12 Hours) Vital Signs Temp Pulse Resp BP Pulse Ox O2 Del Method 12/11/22 07:25 37.0 C 66 20 161/69 H 95 Room Air
--- NOTE | 2022-12-11 13:08 | Hospitalist Progress Note ---
Date of Service December 11, 2022 Assessment & Plan (1) S/P TKR (total knee replacement): (2) Factor X deficiency: (3) Morbid obesity: (4) Hypertension: (5) Hyperlipidemia: Plan Per previous hospitalist notes with addendum: This is a 67-year-old male with PMH of factor X deficiency, hypertension, dyslipidemia, history of tobacco use and other medical problems listed below who is POD#0 s/p Right Total Knee Arthroplasty(Right) by Dr. Brothers. S/p R TKA POD#2 s/p Right Total Knee Arthroplasty(Right) by Dr. Brothers. Hg 12 --> stable at 11 monitor H&H Nucynta added to Morphine IV PRN pain improving continue pain management PT/OT eval Aspirin daily for DVT prophylaxis stable for discharge continue usual medication regimen Factor X deficiency Follows with Dr. [facility] heme/onc. Has received 2 units of FFP prior to surgery permastone mechanic on board FFP if patient develops unusual bleeding Hypertension Continue amlodipine,losartan BPH Continue Flomax Diastolic congestive heart failure Euvolemic Continue Lasix and spironolactone H/O Dyslipidemia Poor tolerance to statins Morbid obesity BMI 44. Recommend lifestyle modification discussions during admission when appropriate Suspected DENISE Sleep study never performed given severe claustrophobia. Monitor O2 and consider supplemental O2/bipap as needed PCP: Isak Admission and Anticipated Discharge Date Admission Date: December 09, 2022 Subjective ff up for factor x deficiency, s/p knee surgery, etc seen resting in bed, comfortable states pain was elevated last night no chest pain, dyspnea, palpitations, dizziness ambulating fine with the walker no other symptoms Review of Systems Review of Systems: all noted and negative except for above Physical Exam Physical Exam: General- oriented x 3, not in distress, speaks in sentences with no effort or accessory muscle use Eyes- anicteric Neck- no JVD Lungs- clear BS BL Heart- normal rate, regular rhythm; no murmurs Abdomen- normal bowel sounds, nondistended, soft, no tenderness Extremities- no pretibial edema, no calf tenderness R knee: mild edema on the knee Neuro- alert, oriented x 3; no gross focal neurologic deficits Skin- warm & dry Results & Data Results & Data Vital Signs (Past 12 Hours) Vital Signs Temp Pulse Pulse Resp BP Pulse Ox O2 Del Method 12/11/22 12:44 37.0 C 77 66 20 161/69 H 95 12/11/22 07:25 37.0 C 66 20 161/69 H 95 Room Air all noted and reviewed including below
--- NOTE | 2022-12-13 10:05 | Discharge Summary ---
Date of Service December 13, 2022 Admission HPI Per Admitting Provider Brennon is a 67-year-old male who presents for preop evaluation prior to his right total knee replacement. He states that he been having pain in his knee for many years now which gradually worsened and is now affecting his daily activities including walking standing using stairs. He is trying failed prior viscosupplementation as well as prior knee arthroscopy about 2 years ago. Rates his current pain is a 7 out of 10. He is tried oral anti-inflammatories and Tylenol without much relief. This point time is failed conservative measures like proceed with right total knee replacement, he was recently rescheduled due to a positive COVID test. Admission Exam Per Admitting Provider Physical Exam: HT: 6ft 6in WT: 173.7kg Constitutional: WD/WN, vitals as above no acute distress Respiratory: normal respiratory effort, lungs clear to auscultation no respiratory distress, no labored breathing and does not use accessory muscles Cardiovascular: RRR, no murmur, no edema Gastrointestinal (Abdomen): normal bowel sounds, soft, nontender, no hepatosplenomegaly Musculoskeletal: Knee: + effusion (+1 effusion), + surgical incision (well healed portals), + limited ROM of knee (ROM 0/3/110), + knee ROM with crepitation, + joint line tenderness (medial joint line) and + Isidra's sign positive; no deformity, no skin erythema, no ecchymosis, no valgus laxity, no varus laxity, anterior drawer test negative, Preethi's sign negative and pivot shift test negative Principal Diagnosis DJD right knee Discharge Data Allergies Allergy/AdvReac Type Severity Reaction Status Date / Time mometasone furoate Allergy Intermediate Nasal Verified 12/06/22 10:12 irritation, "scabbed up" oxycodone AdvReac Severe Severely Verified 12/06/22 10:12 "sick" Consultations 12/06/22 18:18 Consult Hematology Routine Consult Hospitalist Routine 12/07/22 13:43 Consult Pain Management Routine Procedures Performed Operation Date: 12/06/22 13:05 Actual Procedures p Right Total Knee Arthroplasty(Right) - José Miguel Brothers DO Ordered Studies 12/06/22 05:00 US - OR guided needle placemen Routine Hospital Course (1) S/P TKR (total knee replacement): Patient was admitted on the above-noted date and had the above-noted surgery performed which started well. [facility] service was consulted for medical coverage and Dr. Dickey from hematology was consulted secondary to patient's history of factor X deficiency. On his first postoperative day, the patient was having minimal complaints. He had good pain control with his nerve blocks. He had mild discomfort over his patella but was otherwise feeling well. Dressings were clean dry and intact. Calves were soft and nontender. Neurovascular was intact. Patient had good dorsiflexion and plantarflexion of the right foot. He had 250 cc of drainage from his Hemovac from the previous shift. With his factor X deficiency, plans were to monitor his Hemovac drainage as well as hemoglobin hematocrit for anemia. Dr. Dickey had been consulted and had seen the patient by his first postoperative day and made recommendations. Patient has a history of chronic pain issues and has been on multiple medications prior to admission. Patient stated that he had dropped down to 1 medication at this point which was hydrocodone. Patient has been started on hydrocodone p.o. and IV hydromorphone. Patient was beginning to experience increased pain issues after his nerve blocks had worn off and pain management consult was placed. Patient was seen by the pain management team and recommendations were made. By second postoperative day. Dressings and Hemovac remained intact and plans were to continue his Hemovac until his third postoperative day. He was starting to have a little bit of decreased activity with his Hemovac and plans were to watch for now. He was continued on his PT and OT protocols. Plans were to resume his DVT prophylaxis being an aspirin tablet [address] Brothers's office discussed this with the patient's wax ball knock out worker and PCP. Pain management had switched the patient from hydrocodone to Nucynta. He was also later changed to morphine sulfate which seemed to work better for him for IV pain control if needed. By his third postoperative day, he continued to complain of pain in his operative knee but was able to make it through his PT session. He felt that the Nucynta was helping him but was not totally controlled. Dressings have been removed, dneiz dressing was intact. Hemovac was removed without difficulty. No overt drainage from the drain site. Knee was swollen consistent with surgery. Calves soft nontender. Neurovascular was intact. Hemoglobin is remaining stable and was 11.2. Vital signs remaining stable. Dr. Dickey from hematology signed off secondary to the patient remaining stable. I had spoken to Ashanti Jason from pain management about his pain control status. He was then bumped up to Nucynta 50 mg tablet 1 or 2 tablets every 4 hours rather than just 1. Over the next several days, he was continued on his PT protocols. His pain control was manageable. He continued being medically stable as well as orthopedically stable, and it was felt he be discharged home on 12/11/2022. Total Time Total Time Spent Total Time Spent (In Minutes): 10 Discharge Plan Discharge Items Patient Disposition: Home - Home Health Services Reason For Visit: RIGHT KNEE DJD Discharge Diagnosis: Right knee DJD Activity: Per Instructions section Weightbearing: Right weightbearing Weightbearing Comment: As tolerated with walker Non-emergency contact: Surgeon Call non-emergency contact if: you have any medication questions, your pain is not controlled, your temperature is above 101.5, your wound has increased redness and your wound has increased drainage Follow-up/Referrals: José Miguel Brothers DO [Surgeon] - (Follow-up with Dr. Brothers or his PA in 2 weeks from the day of surgery for your first postoperative visit.) Diamante Parisi DO [Primary Care Provider] - Diet: Regular Addtl Attending Provider Instructions: ACTIVITY RECOMMENDATIONS: SELF CARE INSTRUCTIONS AFTER TOTAL KNEE REPLACEMENT A. You may need to continue a physical therapy program after discharge from the hospital. There are several options available to you. Your doctor will assist you in selecting the best one for you. 1. An out-patient facility 2 to 3 times a week for therapy or home therapy. 2. Continue working on all exercises taught to you in the hospital. Your goals should be to increase bending of your knee to 90 degrees and beyond and to fully straighten your knee. B. You may progress at your own pace from walking with a walker or crutches to a cane; then to no assistive devices. C. Make walking a part of your daily routine. Be up as much as comfortable with rest periods throughout the day. Rest with leg elevation is very important. Use the ice wrap frequently for the first 3-4 weeks. D. There are no restrictions on activities. You may ride in a car, shop, participate in basting cleaner and all social activities. E. Wear the long elastic stockings (ALFREDO hose) 20 hours a day for 2 weeks after surgery. They can be removed several times a day for laundering and for a bath. F. You may shower, no tub baths until cleared by your doctor. SPECIAL CARE INSTRUCTIONS: VERY IMPORTANT TO READ AND REVIEW A. There are a few signs you need to watch for after you are home. Call [facility] if you notice any of the followin. Increased severe knee pain. Some pain is expected especially when you exercise. 2. Increased swelling in your leg or knee; pain or swelling of the calf muscle in either lower leg. 3. Any fluid drainage from the incision. 4. Shortness of breath or chest pain. B. Please call [facility] at if you have any concerns or questions about your operation or recovery. The doctor or his nurse will return your call promptly. C. You must take antibiotics before dental work, bladder, bowel or other surgery. Your doctor will provide you with a permanent care to carry describing this precaution. IMPORTANT: * REMEMBER TO TAKE ASPIRIN, 81 MG, TWICE DAILY FOR 4 WEEKS UNLESS OTHERWISE DIRECTED. THIS IS YOUR BLOOD THINNER. * HIGH RISK PATIENTS MAY BE PRESCRIBED A STRONGER BLOOD THINNER. THIS WILL BE PROVIDED AT DISCHARGE. * CALL IF INCREASED PAIN, REDNESS, DRAINAGE OR FEVER GREATER THAT 101. * WEAR ALFREDO HOSE 20 HOURS PER DAY FOR 2 WEEKS. * DENIZ Dressing - This is a large suction dressing covering your incision. This will help pull any excess drainage from the wound and allow your incision to heal properly. You may shower with this if you can keep the unit outside of the shower. If any bleeding or leakage is noted please call your doctor's office. This will remain on your incision for 7 days and then should be removed. This can be done yourself or by the home nursing staff if applicable. The entire unit is disposable once removed. Once removed, keep incision clean and dry. If redness or drainage is noted, please call your surgeon. . *Once your deniz dressing has been removed, follow these instructions; DERMABOND Prineo- This is a mesh tape dressing that is covered with glue. It should remain in place until the incision is properly healed, usually 10-14 days. This dressing is designed to naturally slough off. You may trim the excess mesh tape as it peels off. Incision may be briefly wet in a shower. Dry immediately by blotting with a clean, dry towel. Do not bath or swim until instructed by your doctor. Do not scratch, rub, or pick at the dressing. Do not apply any topical ointments or lotions until dressing is completely removed and/or instructed by your doctor. There may be a small piece of suture material at one end of your incision. Do not pull or trim this. If it is bothersome or catching on clothing, you may c over it with a band-aid. FOLLOW UP VISIT: If appointment is not already scheduled: Please call [facility] to make a follow-up appointment for 2 weeks after your surgery at . Pending Studies at Discharge: No Stand-Alone Forms: [facility] [employer], Smoking Cessation Medications and DC Order Prescriptions: New aspirin 81 mg Tablet,Delayed Release (Dr/Ec) 81 mg PO QAM Qty: 0 0RF Rx Instructions: Monday, Monday, Monday only Nucynta 50 mg tablet 50 - 100 mg PO Q4H PRN (Reason: pain) Qty: 18 0RF Continued losartan 100 mg Tablet 100 mg PO QPM furosemide [Lasix] 20 mg Tablet 40 mg PO QAM omeprazole magnesium [Prilosec OTC] 20 mg Tablet,Delayed Release (Dr/Ec) 20 mg PO QPM amlodipine 5 mg Tablet 5 mg PO QAM spironolactone [Aldactone] 25 mg Tablet 12.5 mg PO DAILY tamsulosin [Flomax] 0.4 mg Capsule 0.4 mg PO QAM allopurinol 100 mg Tablet 100 mg PO QAM azelastine 137 mcg (0.1 %) Aerosol,Wellpinit 2 spray INTRANASAL QPM Discontinued aspirin 81 mg Tablet,Delayed Release (Dr/Ec) 81 mg PO MOWEFR@0900 Rx Instructions: TAKES MON, MON, & MON Discharge Orders: Discharge Order (Routine); Ordered 12/11/22 Ordered By: Chava Simon Admission Data Admit Date/Time: 12/09/22 09:38 Attending Provider: José Miguel Brothers Admit Provider: José Miguel Brothers Primary Care Provider: Keiter,Bobby K. Other Providers: Brice Bennett ; Felipe,[facility] ; Yessi Rodarte ; Taryn Jefferson ; Ramonita Linares ; Jose De Jesus Carrero ; Christopher Hartman ; Chava Simon Other Interventions: Discharge Summary Assessment (RN) Last Done: 12/11/22 12:44
== END 2022-12-11 14:00 | disposition home health service (06) | DRG 470 ==
LOC: 2E 09:55 → ASU 09:55 → 3W 12-09 16:38